=== PATIENT | female | born 1960 | race African-American/Black ===

== ENCOUNTER 2021-01-09 20:07 | Inpatient (IN) | payer SELFPAY ==
[~2021-01-09] VITALS: Ht 160 cm; Wt 53.0 kg
[2021-01-09] MEDS ORDERED: IV NORMAL SALINE 1000ML BAG 1,000 ML IV ONE (20:30)
--- NOTE | 2021-01-09 20:34 | PHYS DOC ---
General Adult HPI: HPI: 60-year-old thin -[place] female who takes no routine prescribed medications, presents the ED brought in by EMS with complaints of right hand pain after falling earlier today, unclear mechanism of injury. EMS reported vry difficult history, they mentioned "black pipe." Patient with repeat questioning in the ED regarding substance abuse, initially denying any drug use but later admitted to cocaine use, 3 weeks ago. She moved here from [place] in May. When asked about cardiac history states " they thought it was a heart attack, the enzymes were below 8 and back up to 11." Patient does not recall any cardiac catheterization through her groin or wrist. Has no routine primary care. History is limited and difficult due to cooperation versus substance abuse/intoxication. Review of Systems: Review of Systems: Constitutional: Denies fever or chills. [] Eyes: Denies change in visual acuity. [] HENT: Denies nasal congestion or sore throat. [] Respiratory: Denies cough or shortness of breath. [] Cardiovascular: Denies chest pain or edema. [] GI: Denies abdominal pain, nausea, vomiting, bloody stools or diarrhea. [] : Denies dysuria or vaginal bleeding Musculoskeletal: Denies back pain or CVA tenderness Integument: Denies rash or diaphoresis Neurologic: Denies headache, neck pain, focal weakness or sensory changes. [] Endocrine: Denies polyuria or polydipsia. [] Lymphatic: Denies swollen glands. [] Psychiatric: Denies depression or anxiety. [] Heart Score: C/O Chest Pain: No Risk Factors: Risk Factors: DM, Current or recent (<one month) smoker, HTN, HLP, family history of CAD, obesity. Risk Scores: Score 0 - 3: 2.5% MACE over next 6 weeks - Discharge Home Score 4 - 6: 20.3% MACE over next 6 weeks - Admit for Clinical Observation Score 7 - 10: 72.7% MACE over next 6 weeks - Early Invasive Strategies Current Medications: Current Medications Medications (Trade) Dose Ordered Sig/[place] Start Time Stop Time Status Last Admin Dose Admin Lorazepam (Ativan Inj) 1 mg 1X ONCE 01/09/21 20:30 01/09/21 20:31 UNV Sodium Chloride 1,000 ml @ 1,000 mls/hr 1X ONCE 01/09/21 20:30 01/09/21 21:29 UNV Physical Exam: PE: Constitutional: Very thin -[place] female HENT: Normocephalic, atraumatic, dentures in place, mucous membranes moist Eyes: EOMI, conjunctiva normal, no discharge, Neck: Normal range of motion, supple, no midline neck pain, no nuchal rigidity or meningismus Cardiovascular: S1/2 present, tachycardic rhythm Lungs & Thorax: Speaking in full sentences, bilateral equal chest rise, no tachypnea or increased work of breathing Abdomen: soft, no tenderness, Skin: Warm, dry, no erythema, no rash. [] Back: No tenderness, no CVA tenderness. [] Extremities: Points to right base of thumb and thenar/hypothenar eminences as site of pain - jumps prior to touching her hand, no obvious deformity, equal radial pulses, no cyanosis, no lower extremity edema, no pain at elbow or shoulder joints Neurologic: Alert to self/month/year, normal motor function, normal sensory function, no focal deficits noted. [] Psychologic: Affect normal, calm EKG: EK EKG sinus tachycardia 143 bpm, left axis deviation, normal intervals, J- point elevations in inferior lateral leads with hyperacute/peaked T waves, Q- wave lead III and aVF, no prior EKG comparison, no active chest pain back pain or discomfort-I discussed this EKG with Dr. Mcadams, cardiology upon ed pt arrival 0859 ekg with no new changes except HR 125 Radiology/Procedures: Radiology/Procedures: IMAGING REPORT Signed PATIENT: COLLEEN WYATT ACCOUNT: [id number] : 1960 LOCATION: ER AGE: 60 SEX: F EXAM STATUS: PRE ER ORD. PHYSICIAN: WILLIAM PINEDA DO REASON: fall? cocaine use, hand pain PROCEDURE: CT HEAD AND CERVICAL SPINE WO CT HEAD AND C-SPINE WO History: Reason: fall cocaine use, pain / Spl. Instructions: / History: Comparison: None. Technique: Noncontrast CT imaging was performed of the head and cervical spine. Coronal and sagittal reconstructions were performed. Exposure: One or more of the following individualized dose reduction techniques were utilized for this examination: 1. Automated exposure control 2. Adjustment of the mA and/or kV according to patient size 3. Use of iterative reconstruction technique. Findings: Head CT: No intracranial hemorrhage. No mass effect. No hydrocephalus. Extra- axial spaces are unremarkable. Imaged orbits are unremarkable. Imaged paranasal sinuses and mastoid air cells are clear. No acute calvarial fracture. Cervical spine CT: Normal vertebral body height and alignment. No fracture. Partially imaged left upper lobe consolidation with septal thickening. Impression: Head CT: 1. No acute intracranial abnormality. Cervical spine CT: 1. No acute fracture or subluxation of the cervical spine. 2. Left upper lobe consolidation with septal thickening, may represent infection or edema. Electronically signed by: Adan Bal DO (01/09/2021 9:04 PM) [facility] REPORT Signed PATIENT: COLLEEN WYATT ACCOUNT: [id number] : 1960 LOCATION: ER AGE: 60 SEX: F EXAM STATUS: REG ER ORD. PHYSICIAN: WILLIAM PINEDA DO REASON: pneumonia, sepsis, left lung mass vs pneumonia PROCEDURE: CT CHEST W/CONTRAST CT THORAX W History: Pneumonia. Sepsis. Technique: CT of the chest was performed with intravenous contrast. Coronal and sagittal reconstructions were performed. Exposure: One or more of the following individualized dose reduction techniques were utilized for this examination: 1. Automated exposure control 2. Adjustment of the mA and/or kV according to patient size 3. Use of iterative reconstruction technique. Comparison: None Findings: Chest: No pulmonary embolism. No aortic aneurysm or dissection. Enlarged mediastinal lymph nodes. Largest left paratracheal conglomerate lymph node measures 2.5 x 1.5 cm. Left hilar lymphadenopathy. Calcified left hilar lymph nodes, likely prior granulomatous disease. Severe left upper lobe consolidations with air bronchograms and septal thickening. Small lobulated left pleural effusion. Mild pulmonary emphysema. Minimal groundglass opacities within the right lower lobe. Upper abdomen: Small right hepatic lobe hypodensity, too small to further characterize. Bones: No pathologic osseous lesions. Impression: 1. Extensive left upper lobe consolidations, concerning for pneumonia. Recommend follow-up to ensure resolution. 2. Small left pleural effusion. 3. Mediastinal left hilar lymphadenopathy, likely reactive. Recommend attention on follow-up. Electronically signed by: Adan Bal DO (01/09/2021 10:27 PM) [facility] DICTATED and SIGNED BY: ADAN BAL DO DATE: 01/09/[id number] 0 DICTATED and SIGNED BY: ADAN BAL DO DATE: 01/09/[id number] 0 IMAGING REPORT Signed PATIENT: COLLEEN WYATT ACCOUNT: [id number] : 1960 LOCATION: ER AGE: 60 SEX: F EXAM STATUS: REG ER ORD. PHYSICIAN: WILLIAM PINEDA DO REASON: right thumb and hand pain s/p fall PROCEDURE: HAND RIGHT 3V XR HAND_RIGHT 3 VIEWS History: Reason: right thumb and hand pain s/p fall / Spl. Instructions: / History: Technique: 3 views right hand Comparison: None. Findings: No dislocation. No fracture. Mild first carpometacarpal triscaphe DJD. Mild distal radial ulnar DJD. Impression: 1. No acute osseous abnormality. Electronically signed by: Adan Bal DO (01/09/2021 9:18 PM) [facility] DICTATED and SIGNED BY: ADAN BAL DO DATE: 01/09/[id number] 0 IMAGING REPORT Signed PATIENT: COLLEEN WYATT ACCOUNT: [id number] : 1960 LOCATION: ER AGE: 60 SEX: F EXAM STATUS: REG ER ORD. PHYSICIAN: WILLIAM PINEDA DO REASON: right hand pain, abnormal ekg PROCEDURE: PORTABLE CHEST 1V XR CHEST 1V History: Reason: right hand pain, abnormal ekg / Spl. Instructions: / History: Comparison: None. Findings: Left upper lung and mid lung masslike consolidation. No pleural effusion. No pneumothorax. Prior granulomatous disease within the chest. Impression: 1. Left upper and midlung masslike consolidation, may represent pneumonia. Recommend follow-up to ensure resolution. Alternatively, CT can further evaluate. Electronically signed by: Adan Bal DO (01/09/2021 9:19 PM) [facility] DICTATED and SIGNED BY: ADAN BAL DO DATE: 01/09/21 [id number] Course & Med Decision Making: Course & Med Decision Making Pertinent Labs and Imaging studies reviewed. (See chart for details) COVID-19 CRITERIA: The patient was evaluated during the global COVID-19 pandemic, and that diagnosis was suspected/considered upon their initial presentation. Their evaluation, treatment and testing was consistent with current guidelines for patients who present with complaints or symptoms that may be related to COVID-19. Concern for sepsis with left sided pneumonia, Covid test pending. Patient also with abnormal EKG findings that have been reviewed by cardiology, cocaine is positive. Troponin negative. Will admit for further medical management. D/w Dr. Garduno who recommends pulmonology and infectious disease consultation. CT of the chest with contrast confirms multifocal pneumonia, 10% bands. Patient stable at time of admission and agrees with this plan. I have spoken with the patient and/or caregivers. I have explained the patient's condition, diagnosis and treatment plan based on the information available to me at this time. I have answered the patient's and/or caregivers questions and answered any concerns. The patient and/or caregivers have as good an understanding of the patient's diagnosis, condition and treatment plan as can be expected at this point. The patient has been stabilized within the capability of the emergency department. The patient will be transported for further care and management or will be moved to an observation or inpatient service. I have communicated with the staff or medical practitioner taking over this patient's care. Nadja Disclaimer: Nadja Disclaimer: This electronic medical record was generated, in whole or in part, using a voice recognition dictation system. Departure Departure Impression: Primary Impression: Sepsis Additional Impressions: CAP (community acquired pneumonia) Person under investigation for COVID-[address]-T wave electrocardiographic changes Hyponatremia Disposition: ADMITTED INPATIENT Admitting Physician: BERTIN (Dr. Garduno) Condition: GUARDED WILLIAM PINEDA DO Jan 09, 2021 20:34
[2021-01-09 20:43] LABS: BASO # 0.1 x10^3/uL (0.0-0.2); BASO % 0 % (0-3); EOS # 0.3 x10^3/uL (0.0-0.7); EOS % 1 % (0-3); HEMATOCRIT 32.5 % (36.0-47.0); HEMOGLOBIN 11.1 g/dL (12.0-15.5); LYMPH # 0.5 x10^3/uL (1.0-4.8); LYMPH % 2 % (24-48); MEAN CORPUSCULAR HEMOGLOBIN 29 pg (25-35); MEAN CORPUSCULAR HGB CONC 34 g/dL (31-37); MEAN CORPUSCULAR VOLUME 85 fL (79-100); MONO # 2.6 x10^3/uL (0.0-1.1); MONO % 11 % (0-9); NEUT # 20.8 x10^3/uL (1.8-7.7); NEUT % 86 % (31-73); PLATELET COUNT 503 x10^3/uL (140-400); RED BLOOD COUNT 3.81 x10^6/uL (3.50-5.40); RED CELL DISTRIBUTION WIDTH 13.2 % (11.5-14.5); WHITE BLOOD COUNT 24.3 x10^3/uL (4.0-11.0)
[2021-01-09 20:48] LABS: BARBITURATES NEG (NEG); BENZODIAZEPINES NEG (NEG); CANNABINOIDS POS (NEG); COCAINE POS (NEG); METHADONE NEG (NEG); OPIATES NEG (NEG); PHENCYCLIDINE NEG (NEG)
[2021-01-09 20:57] LABS: AMPHETAMINE/METHAMPHETAMINE NEG (NEG)
--- NOTE | 2021-01-09 21:07 | RAD ---
CT HEAD AND C-SPINE WO History: Reason: fall cocaine use, pain / Spl. Instructions: / History: Comparison: None. Technique: Noncontrast CT imaging was performed of the head and cervical spine. Coronal and sagittal reconstructions were performed. Exposure: One or more of the following individualized dose reduction techniques were utilized for thi s examination: 1. Automated exposure control 2. Adjustment of the mA and/or kV according to patient size 3. Use of iterative reconstruction technique. Findings: Head CT: No intracranial hemorrhage. No mass effect. No hydrocephalus. Extra-axial spaces are unrema rkable. Imaged orbits are unremarkable. Imaged paranasal sinuses and mastoid air cells are clear. No acute ca lvarial fracture. Cervical spine CT: Normal vertebral body height and alignment. No fracture. Partially imaged left upper lobe consolidation with septal thickening. Impression: Head CT: 1. No acute intracranial abnormality. Cervical spine CT: 1. No acute fracture or subluxation of the cervical spine. 2. Left upper lobe consolidation with septal thickening, may represent infection or edema. Electronically signed by: Adan Bal DO (01/09/2021 9:04 PM) [facility]
[2021-01-09 21:10] LABS: PROTHROMBIN TIME PATIENT 15.5 SEC (11.7-14.0)
--- NOTE | 2021-01-09 21:20 | RAD ---
XR HAND_RIGHT 3 VIEWS History: Reason: right thumb and hand pain s/p fall / Spl. Instructions: / History: Technique: 3 views right hand Comparison: None. Findings: No dislocation. No fracture. Mild first carpometacarpal triscaphe DJD. Mild distal radial ulnar DJD. Impression: 1. No acute osseous abnormality. Electronically signed by: Adan Bal DO (01/09/2021 9:18 PM) [facility]
--- NOTE | 2021-01-09 21:21 | RAD ---
XR CHEST 1V History: Reason: right hand pain, abnormal ekg / Spl. Instructions: / History: Comparison: None. Findings: Left upper lung and mid lung masslike consolidation. No pleural effusion. No pneumothorax. Prior gran ulomatous disease within the chest. Impression: 1. Left upper and midlung masslike consolidation, may represent pneumonia. Recommend follow-up to en sure resolution. Alternatively, CT can further evaluate. Electronically signed by: Adan Bal DO (01/09/2021 9:19 PM) [facility]
[2021-01-09] MEDS ORDERED: cefTRIAXone IV Push 1 GM VIAL. IVP ONE (21:30)
[2021-01-09] MEDS ORDERED: AZITHRMYCN 500MG IVPB FOR OMNI 250 ML IV ONE (21:30)
[2021-01-09 21:37] LABS: % BANDS 10 % (0-9); % LYMPHS 2 % (24-48); % MONOS 1 % (0-10); % SEGS 87 % (35-66); PLT ESTIMATE INCREASED (ADEQUATE)
[2021-01-09 21:46] LABS: CALCIUM 9.6 mg/dL (8.5-10.1); CREATININE 1.1 mg/dL (0.6-1.0); GFR 61.5; POTASSIUM 4.4 mmol/L (3.5-5.1)
[2021-01-09 21:51] LABS: ALBUMIN 1.3 g/dL (3.4-5.0); ALBUMIN/GLOBULIN RATIO 0.2 (1.0-1.7); MAGNESIUM 2.1 mg/dL (1.8-2.4); TOTAL BILIRUBIN 2.1 mg/dL (0.2-1.0); TOTAL PROTEIN 7.6 g/dL (6.4-8.2)
[2021-01-09] MEDS ORDERED: IOHEXOL 300 MG/ML 100ML VIAL. IV ONE (22:00)
[2021-01-09] MEDS ORDERED: CONTRAST GIVEN. MC PRN (22:00)
--- NOTE | 2021-01-09 22:29 | RAD ---
CT THORAX W History: Pneumonia. Sepsis. Technique: CT of the chest was performed with intravenous contrast. Coronal and sagittal reconstructi ons were performed. Exposure: One or more of the following individualized dose reduction techniques were utilized for thi s examination: 1. Automated exposure control 2. Adjustment of the mA and/or kV according to patient size 3. Use of iterative reconstruction technique. Comparison: None Findings: Chest: No pulmonary embolism. No aortic aneurysm or dissection. Enlarged mediastinal lymph nodes. Lar gest left paratracheal conglomerate lymph node measures 2.5 x 1.5 cm. Left hilar lymphadenopathy. Xavier cified left hilar lymph nodes, likely prior granulomatous disease. Severe left upper lobe consolidations with air bronchograms and septal thickening. Small lobulated le ft pleural effusion. Mild pulmonary emphysema. Minimal groundglass opacities within the right lower l obe. Upper abdomen: Small right hepatic lobe hypodensity, too small to further characterize. Bones: No pathologic osseous lesions. Impression: 1. Extensive left upper lobe consolidations, concerning for pneumonia. Recommend follow-up to ensure resolution. 2. Small left pleural effusion. 3. Mediastinal left hilar lymphadenopathy, likely reactive. Recommend attention on follow-up. Electronically signed by: Adan Bal DO (01/09/2021 10:27 PM) [facility]
[2021-01-09 23:28] LABS: CLARITY,URINE CLOUDY; COLOR,URINE ORANGE
[2021-01-09 23:50] LABS: AMORPHOUS SEDIMENT,UR PRESENT /HPF; BACTERIA,URINE FEW /HPF (0-FEW); GRANULAR CASTS,URINE FEW /HPF; HYALINE CASTS, URINE MODERATE /HPF
[2021-01-09 23:51] LABS: RBC,URINE OCC /HPF (0-2)
[2021-01-10] VITALS (7 sets, daily range): BP systolic 85–129; BP diastolic 52–69
[2021-01-10] MEDS ORDERED: IV NORMAL SALINE 1000ML BAG 1,000 ML IV ONE (01:00)
[2021-01-10] MEDS: IV NORMAL SALINE 1000ML BAG 1,000 ML IV SCH ×4 (01:34→22:15)
--- NOTE | 2021-01-10 06:18 | EKG ---
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
--- NOTE | 2021-01-10 06:59 | PDOC1 ---
History and Physical Date of Admission Date of Admission DATE: 01/10/21 TIME: 06:57 Identification/Chief Complaint Chief Complaint Right hand pain, confusion Source Source: Chart review, Patient History of Present Illness History of Present Illness Ms Mccrary is a 60 yo F who takes no routine prescribed medications, presents the ED brought in by EMS with complaints of right hand pain after falling during the day on 01/09/2021. She was very confused and unclear about history but does note moving here from [place] at the end of 2019 and used cocaine "a few days ago". She notes weight loss, fever and chills and right hand pain and stiffness and is aware she is confused. Cannot give much more history, but notes she thinks she had a heart attack back in [place], but then says she didn't. She is a little short of breath and has a slight cough, notes she may have vomiting recently but thinks it may have been due to pain. WBC 24.3, Hb 11.1, platelets 503 INR 1.2 NA 125, K4.4, BUN 45, CR 1.1, glucose 104 bilirubin 2.1, AST 29, ALT 50, alk phos 1.3, albumin 1.3, NT proBNP 359 troponin 0 lactic acid 3 initially down to 1.5 UDS positive for cocaine and cannabinoids 0809 EKG sinus tachycardia 143 bpm, left axis deviation, normal intervals, J- point elevations in inferior lateral leads with hyperacute/peaked T waves, Q- wave lead III and aVF Chest radiograph with left upper lobe opacity Right hand radiograph without fracture CT head with no acute abnormality CT of the chest with contrast confirms multifocal left upper lobe pneumonia with hilar fullness and mediastinal lymphadenopathy. BP 90/50 after empiric antibiotics and fluids for sepsis, given rocephin and azithromycin. Admitted to ICU for further care. Past Medical History Cardiovascular: No pertinent hx Pulmonary: Bronchitis Psych: Addictions (Cocaine) Past Surgical History Past Surgical History: No pertinent history Family History Family History reviewed Family History: Family History Unknown Social History Smoke: Quit (June 2020) ALCOHOL: none Drugs: Cocaine, Marijuana Current Problem List Problem List Problems Medical Problems: (1) CAP (community acquired pneumonia) Status: Acute (2) Cocaine use Status: Acute (3) Hyponatremia Status: Acute (4) Nonspecific ST-T wave electrocardiographic changes Status: Acute (5) Person under investigation for COVID-19 Status: Acute (6) Sepsis Status: Acute Current Medications Current Medications Current Medications Sodium Chloride 1,000 ml @ 1,000 mls/hr 1X ONCE IV Last administered on 01/09/21at 21:31; Start 01/09/21 at 20:30; Stop 01/09/21 at 21:29; Status DC Lorazepam (Ativan Inj) 1 mg 1X ONCE IVP Last administered on 01/09/21at 21:31; Start 01/09/21 at 20:30; Stop 01/09/21 at 20:55; Status DC Ceftriaxone Sodium (Rocephin) 1 gm 1X ONCE IVP Last administered on 01/09/21at 21:32; Start 01/09/21 at 21:30; Stop 01/09/21 at 21:31; Status DC Azithromycin 250 ml @ 250 mls/hr 1X ONCE IV Last administered on 01/09/21at 21:32; Start 01/09/21 at 21:30; Stop 01/09/21 at 22:29; Status DC Iohexol (Omnipaque 300 Mg/ml) 75 ml 1X ONCE IV Last administered on 01/09/21at 22:05; Start 01/09/21 at 22:00; Stop 01/09/21 at 22:01; Status DC Info (CONTRAST GIVEN -- Rx MONITORING) 1 each PRN DAILY PRN MC SEE COMMENTS; Start 01/09/21 at 22:00; Stop 01/11/21 at 21:59 Sodium Chloride 1,000 ml @ 150 mls/hr Q6H40M IV Last administered on 01/10/21at 01:34; Start 01/10/21 at 01:00 Sodium Chloride 1,000 ml @ 1,000 mls/hr 1X ONCE IV Last administered on 01/10/21at 01:07; Start 01/10/21 at 01:00; Stop 01/10/21 at 01:59; Status DC Active Scripts Active Reported No Known Medications Prior To Admisstion (Info) Each 1 Each MC PRN PRN Allergies Allergies: Coded Allergies: No Known Drug Allergies (Unverified , 01/09/21) ROS General: YES: Fatigue, Malaise; No: Chills, Night Sweats, Appetite, Other PSYCHOLOGICAL ROS: YES: Anxiety, Disorientation; No: Behavioral Disorder, Concentration difficultie, Decreased libido, Depression, Hallucinations, Hostility, Irritablity, Memory difficulties, Mood Swings, Obsessive thoughts, Physical abuse, Sexual abuse, Sleep disturbances, Suicidal ideation, Other Eyes: No Blurry vision, No Decreased vision, No Double vision, No Dry eyes, No Excessive tearing, No Eye Pain, No Itchy Eyes, No Loss of vision, No Photophobia, No Scotomata, No Uses contacts, No Uses glasses, No Other HEENT: No: Heacaches, Visual Changes, Hearing change, Nasal congestion, Nasal discharge, Oral lesions, Sinus pain, Sore Throat, Epistaxis, Sneezing, Snoring, Tinnitus, Vertigo, Vocal changes, Other ALLERGY AND IMMUNOLOGY: No: Hives, Insect Bite Sensitivity, Itchy/Watery Eyes, Nasal Congestion, Post Nasal Drip, Seasonal Allergies, Other Hematological and Lymphatic: No: Bleeding Problems, Blood Clots, Blood Transfusions, Brusing, Night Sweats, Pallor, Swollen Lymph Nodes, Other ENDOCRINE: No: Breast Changes, Galactorrhea, Hair Pattern Changes, Hot Flashes, Malaise/lethargy, Mood Swings, Palpitations, Polydipsia/polyuria, Skin Changes, Temperature Intolerance, Unexpected Weight Changes, Other Breast: No New/Changing Breast Lumps, No Nipple changes, No Nipple discharge, No Other Respiratory: YES: Cough, Shortness of breath; No: Hemoptysis, Orthopnea, Pleuritic Pain, SOB with excertion, Sputum Changes, Stridor, Tachypnea, Wheezing, Other Cardiovascular: No Chest Pain, No Palpitations, No Orthopnea, No Paroxysmal Noc. Dyspnea, No Edema, No Lt Headedness, No Other Gastrointestinal: No Nausea, No Vomiting, No Abdominal Pain, No Diarrhea, No Constipation, No Melena, No Hematochezia, No Other Genitourinary: No Dysuria, No Frequency, No Incontinence, No Hematuria, No Retention, No Discharge, No Urgency, No Pain, No Flank Pain, No Other, No , No , No , No , No , No , No Musculoskeletal: Yes Gait Disturbance, Yes Joint Pain, Yes Joint Stiffness; No Joint Swelling, No Muscle Pain, No Muscular Weakness, No Pain In:, No Swelling In:, No Other Neurological: No Behavorial Changes, No Bowel/Bladder ControlChng, No Confusion, No Dizziness, No Gait Disturbance, No Headaches, No Impaired Coord/balance, No Memory Loss, No Numbness/Tingling, No Seizures, No Speech Problems, No Tremors, No Visual Changes, No Weakness, No Other Skin: No Dry Skin, No Eczema, No Hair Changes, No Lumps, No Mole Changes, No Mottling, No Nail Changes, No Pruritus, No Rash, No Skin Lesion Changes, No Other, No Acne Physical Exam Physical Exam Thin, cachectic General: Alert, Cooperative, moderate distress HEENT: Atraumatic, PERRLA, EOMI, Mucous membr. moist/pink Lungs: Other (left sided rhonchi) Heart: S1S2, RRR, no thrills, no rubs, no gallops, no murmurs Abdomen: Normal bowel sounds, Soft, No tenderness, No hepatosplenomegaly, No masses Rectal Exam: not examined Extremities: No clubbing, No cyanosis, No edema, Normal pulses, No tenderness/swelling Skin: No rashes, No breakdown, No significant lesion Neuro: Normal speech, Strength at 5/5 X4 ext, Normal tone, Sensation intact, Cranial nerves 3-12 NL, Reflexes 2+ Vitals Vitals Vital Signs Date Time Temp Pulse Resp B/P (MAP) Pulse Ox O2 Delivery O2 Flow Rate FiO2 01/10/21 03:00 98.2 112 18 107/62 (77) 94 Room Air 98.2 Labs Labs Laboratory Tests Test 01/09/21 20:25 01/09/21 20:54 01/09/21 21:21 01/09/21 23:32 White Blood Count 24.3 x10^3/uL (4.0-11.0) Red Blood Count 3.81 x10^6/uL (3.50-5.40) Hemoglobin 11.1 g/dL (12.0-15.5) Hematocrit 32.5 % (36.0-47.0) Mean Corpuscular Volume 85 fL (79-100) Mean Corpuscular Hemoglobin 29 pg (25-35) Mean Corpuscular Hemoglobin Concent 34 g/dL (31-37) Red Cell Distribution Width 13.2 % (11.5-14.5) Platelet Count 503 x10^3/uL (140-400) Neutrophils (%) (Auto) 86 % (31-73) Lymphocytes (%) (Auto) 2 % (24-48) Monocytes (%) (Auto) 11 % (0-9) Eosinophils (%) (Auto) 1 % (0-3) Basophils (%) (Auto) 0 % (0-3) Neutrophils # (Auto) 20.8 x10^3/uL (1.8-7.7) Lymphocytes # (Auto) 0.5 x10^3/uL (1.0-4.8) Monocytes # (Auto) 2.6 x10^3/uL (0.0-1.1) Eosinophils # (Auto) 0.3 x10^3/uL (0.0-0.7) Basophils # (Auto) 0.1 x10^3/uL (0.0-0.2) Segmented Neutrophils % 87 % (35-66) Band Neutrophils % 10 % (0-9) Lymphocytes % 2 % (24-48) Monocytes % 1 % (0-10) Platelet Estimate Increased (ADEQUATE) Large Platelets Present Urine Collection Type U cath Urine Color [place] Urine Clarity Cloudy Urine pH (<5.0-8.0) Urine Specific [place] 1.020 (1.000-1.030) Urine Protein mg/dL (NEG-TRACE) Urine Glucose (UA) mg/dL (NEG) Urine Ketones (Stick) mg/dL (NEG) Urine Blood (NEG) Urine Nitrite (NEG) Urine Bilirubin (NEG) Urine Urobilinogen Dipstick mg/dL (0.2 mg/dL) Urine Leukocyte Esterase (NEG) Urine RBC Occ /HPF (0-2) Urine WBC 5-10 /HPF (0-4) Urine Squamous Epithelial Cells Mod /LPF Urine Amorphous Sediment Present /HPF Urine Bacteria Few /HPF (0-FEW) Urine Hyaline Casts Moderate /HPF Urine Granular Casts Few /HPF Urine Mucus Marked /LPF Lactic Acid Level 3.0 mmol/L (0.4-2.0) Troponin I Quantitative < 0.017 ng/mL (0.000-0.055) < 0.017 ng/mL (0.000-0.055) Urine Opiates Screen Neg (NEG) Urine Methadone Screen Neg (NEG) Urine Barbiturates Neg (NEG) Urine Phencyclidine Screen Neg (NEG) Urine Amphetamine/Methamphetamine Neg (NEG) Urine Benzodiazepines Screen Neg (NEG) Urine Cocaine Screen Pos (NEG) Urine Cannabinoids Screen Pos (NEG) Urine Ethyl Alcohol Neg (NEG) Prothrombin Time 15.5 SEC (11.7-14.0) Prothromb Time International Ratio 1.2 (0.8-1.1) Activated Partial Thromboplast Time 28 SEC (24-38) Sodium Level 125 mmol/L (136-145) Potassium Level 4.4 mmol/L (3.5-5.1) Chloride Level 94 mmol/L (98-107) Carbon Dioxide Level 19 mmol/L (21-32) Anion Gap 12 (6-14) Blood Urea Nitrogen 45 mg/dL (7-20) Creatinine 1.1 mg/dL (0.6-1.0) Estimated GFR (Cockcroft-Gault) 61.5 BUN/Creatinine Ratio 41 (6-20) Glucose Level 104 mg/dL (70-99) Calcium Level 9.6 mg/dL (8.5-10.1) Magnesium Level 2.1 mg/dL (1.8-2.4) Total Bilirubin 2.1 mg/dL (0.2-1.0) Aspartate Amino Transf (AST/SGOT) 189 U/L (15-37) Alanine Aminotransferase (ALT/SGPT) 50 U/L (14-59) Alkaline Phosphatase 143 U/L (46-116) AV-Gcp-V-Type Natriuretic Peptide 359 pg/mL (0-124) Total Protein 7.6 g/dL (6.4-8.2) Albumin 1.3 g/dL (3.4-5.0) Albumin/Globulin Ratio 0.2 (1.0-1.7) Lipase 139 U/L (73-393) Test 01/09/21 23:58 01/10/21 02:30 Lactic Acid Level 1.5 mmol/L (0.4-2.0) Troponin I Quantitative < 0.017 ng/mL (0.000-0.055) Laboratory Tests Test 01/09/21 20:25 01/09/21 20:54 01/09/21 21:21 01/09/21 23:32 White Blood Count 24.3 x10^3/uL (4.0-11.0) Red Blood Count 3.81 x10^6/uL (3.50-5.40) Hemoglobin 11.1 g/dL (12.0-15.5) Hematocrit 32.5 % (36.0-47.0) Mean Corpuscular Volume 85 fL (79-100) Mean Corpuscular Hemoglobin 29 pg (25-35) Mean Corpuscular Hemoglobin Concent 34 g/dL (31-37) Red Cell Distribution Width 13.2 % (11.5-14.5) Platelet Count 503 x10^3/uL (140-400) Neutrophils (%) (Auto) 86 % (31-73) Lymphocytes (%) (Auto) 2 % (24-48) Monocytes (%) (Auto) 11 % (0-9) Eosinophils (%) (Auto) 1 % (0-3) Basophils (%) (Auto) 0 % (0-3) Neutrophils # (Auto) 20.8 x10^3/uL (1.8-7.7) Lymphocytes # (Auto) 0.5 x10^3/uL (1.0-4.8) Monocytes # (Auto) 2.6 x10^3/uL (0.0-1.1) Eosinophils # (Auto) 0.3 x10^3/uL (0.0-0.7) Basophils # (Auto) 0.1 x10^3/uL (0.0-0.2) Segmented Neutrophils % 87 % (35-66) Band Neutrophils % 10 % (0-9) Lymphocytes % 2 % (24-48) Monocytes % 1 % (0-10) Platelet Estimate Increased (ADEQUATE) Large Platelets Present Urine Collection Type U cath Urine Color [place] Urine Clarity Cloudy Urine pH (<5.0-8.0) Urine Specific [place] 1.020 (1.000-1.030) Urine Protein mg/dL (NEG-TRACE) Urine Glucose (UA) mg/dL (NEG) Urine Ketones (Stick) mg/dL (NEG) Urine Blood (NEG) Urine Nitrite (NEG) Urine Bilirubin (NEG) Urine Urobilinogen Dipstick mg/dL (0.2 mg/dL) Urine Leukocyte Esterase (NEG) Urine RBC Occ /HPF (0-2) Urine WBC 5-10 /HPF (0-4) Urine Squamous Epithelial Cells Mod /LPF Urine Amorphous Sediment Present /HPF Urine Bacteria Few /HPF (0-FEW) Urine Hyaline Casts Moderate /HPF Urine Granular Casts Few /HPF Urine Mucus Marked /LPF Lactic Acid Level 3.0 mmol/L (0.4-2.0) Troponin I Quantitative < 0.017 ng/mL (0.000-0.055) < 0.017 ng/mL (0.000-0.055) Urine Opiates Screen Neg (NEG) Urine Methadone Screen Neg (NEG) Urine Barbiturates Neg (NEG) Urine Phencyclidine Screen Neg (NEG) Urine Amphetamine/Methamphetamine Neg (NEG) Urine Benzodiazepines Screen Neg (NEG) Urine Cocaine Screen Pos (NEG) Urine Cannabinoids Screen Pos (NEG) Urine Ethyl Alcohol Neg (NEG) Prothrombin Time 15.5 SEC (11.7-14.0) Prothromb Time International Ratio 1.2 (0.8-1.1) Activated Partial Thromboplast Time 28 SEC (24-38) Sodium Level 125 mmol/L (136-145) Potassium Level 4.4 mmol/L (3.5-5.1) Chloride Level 94 mmol/L (98-107) Carbon Dioxide Level 19 mmol/L (21-32) Anion Gap 12 (6-14) Blood Urea Nitrogen 45 mg/dL (7-20) Creatinine 1.1 mg/dL (0.6-1.0) Estimated GFR (Cockcroft-Gault) 61.5 BUN/Creatinine Ratio 41 (6-20) Glucose Level 104 mg/dL (70-99) Calcium Level 9.6 mg/dL (8.5-10.1) Magnesium Level 2.1 mg/dL (1.8-2.4) Total Bilirubin 2.1 mg/dL (0.2-1.0) Aspartate Amino Transf (AST/SGOT) 189 U/L (15-37) Alanine Aminotransferase (ALT/SGPT) 50 U/L (14-59) Alkaline Phosphatase 143 U/L (46-116) SS-[place]-G-Type Natriuretic Peptide 359 pg/mL (0-124) Total Protein 7.6 g/dL (6.4-8.2) Albumin 1.3 g/dL (3.4-5.0) Albumin/Globulin Ratio 0.2 (1.0-1.7) Lipase 139 U/L (73-393) Test 01/09/21 23:58 01/10/21 02:30 Lactic Acid Level 1.5 mmol/L (0.4-2.0) Troponin I Quantitative < 0.017 ng/mL (0.000-0.055) Images Images CT HEAD AND C-SPINE WO History: Reason: fall cocaine use, pain / Spl. Instructions: / History: Comparison: None. Technique: Noncontrast CT imaging was performed of the head and cervical spine. Coronal and sagittal reconstructions were performed. Exposure: One or more of the following individualized dose reduction techniques were utilized for this examination: 1. Automated exposure control 2. Adjustment of the mA and/or kV according to patient size 3. Use of iterative reconstruction technique. Findings: Head CT: No intracranial hemorrhage. No mass effect. No hydrocephalus. Extra- axial spaces are unremarkable. Imaged orbits are unremarkable. Imaged paranasal sinuses and mastoid air cells are clear. No acute calvarial fracture. Cervical spine CT: Normal vertebral body height and alignment. No fracture. Partially imaged left upper lobe consolidation with septal thickening. Impression: Head CT: 1. No acute intracranial abnormality. Cervical spine CT: 1. No acute fracture or subluxation of the cervical spine. 2. Left upper lobe consolidation with septal thickening, may represent infection or edema. CT THORAX W Findings: Chest: No pulmonary embolism. No aortic aneurysm or dissection. Enlarged mediastinal lymph nodes. Largest left paratracheal conglomerate lymph node measures 2.5 x 1.5 cm. Left hilar lymphadenopathy. Calcified left hilar lymph nodes, likely prior granulomatous disease. Severe left upper lobe consolidations with air bronchograms and septal thickening. Small lobulated left pleural effusion. Mild pulmonary emphysema. Minimal groundglass opacities within the right lower lobe. Upper abdomen: Small right hepatic lobe hypodensity, too small to further hal racterize. Bones: No pathologic osseous lesions. Impression: 1. Extensive left upper lobe consolidations, concerning for pneumonia. Recommend follow-up to ensure resolution. 2. Small left pleural effusion. 3. Mediastinal left hilar lymphadenopathy, likely reactive. Recommend attention on follow-up. XR HAND_RIGHT 3 VIEWS History: Reason: right thumb and hand pain s/p fall / Spl. Instructions: / History: Technique: 3 views right hand Comparison: None. Findings: No dislocation. No fracture. Mild first carpometacarpal triscaphe DJD. Mild distal radial ulnar DJD. Impression: 1. No acute osseous abnormality. XR CHEST 1V History: Reason: right hand pain, abnormal ekg / Spl. Instructions: / History: Comparison: None. Findings: Left upper lung and mid lung masslike consolidation. No pleural effusion. No pneumothorax. Prior granulomatous disease within the chest. Impression: 1. Left upper and midlung masslike consolidation, may represent pneumonia. Recommend follow-up to ensure resolution. Alternatively, CT can further evaluate. VTE Prophylaxis Ordered VTE Prophylaxis Devices: No VTE Pharmacological Prophylaxi: Yes Assessment/Plan Assessment/Plan A/P: Acute encephalopathy - metabolic from sepsis, hyponatremia and toxic from cocaine Sepsis - with gram positive bacteremia and JAY pneumonia, likely gram positive given bacteremia but just as likely gram negative given possible aspiration and cocaine abuse CAP (community acquired pneumonia) - rocephin and azithromycin initial coverage. COVID [address] of the chest with contrast confirms multifocal pneumonia in JAY. Pulm consulted for bronchoscopy consideration Gram-positive bacteremia, 4/4 bottles present on admission - ID consulted, daptomycin ordered Right hand pain - wrist stiffness, possibly septic arthritis. Cocaine use - counseled on cessation Nonspecific ST-T wave electrocardiographic changes - consulted cardiology, will trend troponins. Given gram positive bacteremia 4/4 bottles positive will ask for echocardiogram to evaluated for possible valve vegetations Hyponatremia - likely hypovolemic, will trend, hydrate Weight loss - possibly related to cocaine, but left lung consolidation could be mass. 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
--- NOTE | 2021-01-10 09:02 | PDOC ---
PULMONARY PROGRESS NOTES DATE: 01/10/21 TIME: 09:02 Vitals Vital Signs Date Time Temp Pulse Resp B/P (MAP) Pulse Ox O2 Delivery O2 Flow Rate FiO2 01/10/21 03:00 98.2 112 18 107/62 (77) 94 Room Air 98.2 Labs Laboratory Tests Test 01/09/21 20:25 01/09/21 20:54 01/09/21 21:21 01/09/21 23:32 White Blood Count 24.3 x10^3/uL (4.0-11.0) Red Blood Count 3.81 x10^6/uL (3.50-5.40) Hemoglobin 11.1 g/dL (12.0-15.5) Hematocrit 32.5 % (36.0-47.0) Mean Corpuscular Volume 85 fL (79-100) Mean Corpuscular Hemoglobin 29 pg (25-35) Mean Corpuscular Hemoglobin Concent 34 g/dL (31-37) Red Cell Distribution Width 13.2 % (11.5-14.5) Platelet Count 503 x10^3/uL (140-400) Neutrophils (%) (Auto) 86 % (31-73) Lymphocytes (%) (Auto) 2 % (24-48) Monocytes (%) (Auto) 11 % (0-9) Eosinophils (%) (Auto) 1 % (0-3) Basophils (%) (Auto) 0 % (0-3) Neutrophils # (Auto) 20.8 x10^3/uL (1.8-7.7) Lymphocytes # (Auto) 0.5 x10^3/uL (1.0-4.8) Monocytes # (Auto) 2.6 x10^3/uL (0.0-1.1) Eosinophils # (Auto) 0.3 x10^3/uL (0.0-0.7) Basophils # (Auto) 0.1 x10^3/uL (0.0-0.2) Segmented Neutrophils % 87 % (35-66) Band Neutrophils % 10 % (0-9) Lymphocytes % 2 % (24-48) Monocytes % 1 % (0-10) Platelet Estimate Increased (ADEQUATE) Large Platelets Present Urine Collection Type U cath Urine Color [place] Urine Clarity Cloudy Urine pH (<5.0-8.0) Urine Specific [place] 1.020 (1.000-1.030) Urine Protein mg/dL (NEG-TRACE) Urine Glucose (UA) mg/dL (NEG) Urine Ketones (Stick) mg/dL (NEG) Urine Blood (NEG) Urine Nitrite (NEG) Urine Bilirubin (NEG) Urine Urobilinogen Dipstick mg/dL (0.2 mg/dL) Urine Leukocyte Esterase (NEG) Urine RBC Occ /HPF (0-2) Urine WBC 5-10 /HPF (0-4) Urine Squamous Epithelial Cells Mod /LPF Urine Amorphous Sediment Present /HPF Urine Bacteria Few /HPF (0-FEW) Urine Hyaline Casts Moderate /HPF Urine Granular Casts Few /HPF Urine Mucus Marked /LPF Lactic Acid Level 3.0 mmol/L (0.4-2.0) Troponin I Quantitative < 0.017 ng/mL (0.000-0.055) < 0.017 ng/mL (0.000-0.055) Urine Opiates Screen Neg (NEG) Urine Methadone Screen Neg (NEG) Urine Barbiturates Neg (NEG) Urine Phencyclidine Screen Neg (NEG) Urine Amphetamine/Methamphetamine Neg (NEG) Urine Benzodiazepines Screen Neg (NEG) Urine Cocaine Screen Pos (NEG) Urine Cannabinoids Screen Pos (NEG) Urine Ethyl Alcohol Neg (NEG) Prothrombin Time 15.5 SEC (11.7-14.0) Prothromb Time International Ratio 1.2 (0.8-1.1) Activated Partial Thromboplast Time 28 SEC (24-38) Sodium Level 125 mmol/L (136-145) Potassium Level 4.4 mmol/L (3.5-5.1) Chloride Level 94 mmol/L (98-107) Carbon Dioxide Level 19 mmol/L (21-32) Anion Gap 12 (6-14) Blood Urea Nitrogen 45 mg/dL (7-20) Creatinine 1.1 mg/dL (0.6-1.0) Estimated GFR (Cockcroft-Gault) 61.5 BUN/Creatinine Ratio 41 (6-20) Glucose Level 104 mg/dL (70-99) Calcium Level 9.6 mg/dL (8.5-10.1) Magnesium Level 2.1 mg/dL (1.8-2.4) Total Bilirubin 2.1 mg/dL (0.2-1.0) Aspartate Amino Transf (AST/SGOT) 189 U/L (15-37) Alanine Aminotransferase (ALT/SGPT) 50 U/L (14-59) Alkaline Phosphatase 143 U/L (46-116) GJ-Fen-K-Type Natriuretic Peptide 359 pg/mL (0-124) Total Protein 7.6 g/dL (6.4-8.2) Albumin 1.3 g/dL (3.4-5.0) Albumin/Globulin Ratio 0.2 (1.0-1.7) Lipase 139 U/L (73-393) Test 01/09/21 23:58 01/10/21 02:30 Lactic Acid Level 1.5 mmol/L (0.4-2.0) Troponin I Quantitative < 0.017 ng/mL (0.000-0.055) Laboratory Tests Test 01/09/21 20:25 01/09/21 20:54 01/09/21 21:21 01/09/21 23:32 White Blood Count 24.3 x10^3/uL (4.0-11.0) Red Blood Count 3.81 x10^6/uL (3.50-5.40) Hemoglobin 11.1 g/dL (12.0-15.5) Hematocrit 32.5 % (36.0-47.0) Mean Corpuscular Volume 85 fL (79-100) Mean Corpuscular Hemoglobin 29 pg (25-35) Mean Corpuscular Hemoglobin Concent 34 g/dL (31-37) Red Cell Distribution Width 13.2 % (11.5-14.5) Platelet Count 503 x10^3/uL (140-400) Neutrophils (%) (Auto) 86 % (31-73) Lymphocytes (%) (Auto) 2 % (24-48) Monocytes (%) (Auto) 11 % (0-9) Eosinophils (%) (Auto) 1 % (0-3) Basophils (%) (Auto) 0 % (0-3) Neutrophils # (Auto) 20.8 x10^3/uL (1.8-7.7) Lymphocytes # (Auto) 0.5 x10^3/uL (1.0-4.8) Monocytes # (Auto) 2.6 x10^3/uL (0.0-1.1) Eosinophils # (Auto) 0.3 x10^3/uL (0.0-0.7) Basophils # (Auto) 0.1 x10^3/uL (0.0-0.2) Segmented Neutrophils % 87 % (35-66) Band Neutrophils % 10 % (0-9) Lymphocytes % 2 % (24-48) Monocytes % 1 % (0-10) Platelet Estimate Increased (ADEQUATE) Large Platelets Present Urine Collection Type U cath Urine Color [place] Urine Clarity Cloudy Urine pH (<5.0-8.0) Urine Specific [place] 1.020 (1.000-1.030) Urine Protein mg/dL (NEG-TRACE) Urine Glucose (UA) mg/dL (NEG) Urine Ketones (Stick) mg/dL (NEG) Urine Blood (NEG) Urine Nitrite (NEG) Urine Bilirubin (NEG) Urine Urobilinogen Dipstick mg/dL (0.2 mg/dL) Urine Leukocyte Esterase (NEG) Urine RBC Occ /HPF (0-2) Urine WBC 5-10 /HPF (0-4) Urine Squamous Epithelial Cells Mod /LPF Urine Amorphous Sediment Present /HPF Urine Bacteria Few /HPF (0-FEW) Urine Hyaline Casts Moderate /HPF Urine Granular Casts Few /HPF Urine Mucus Marked /LPF Lactic Acid Level 3.0 mmol/L (0.4-2.0) Troponin I Quantitative < 0.017 ng/mL (0.000-0.055) < 0.017 ng/mL (0.000-0.055) Urine Opiates Screen Neg (NEG) Urine Methadone Screen Neg (NEG) Urine Barbiturates Neg (NEG) Urine Phencyclidine Screen Neg (NEG) Urine Amphetamine/Methamphetamine Neg (NEG) Urine Benzodiazepines Screen Neg (NEG) Urine Cocaine Screen Pos (NEG) Urine Cannabinoids Screen Pos (NEG) Urine Ethyl Alcohol Neg (NEG) Prothrombin Time 15.5 SEC (11.7-14.0) Prothromb Time International Ratio 1.2 (0.8-1.1) Activated Partial Thromboplast Time 28 SEC (24-38) Sodium Level 125 mmol/L (136-145) Potassium Level 4.4 mmol/L (3.5-5.1) Chloride Level 94 mmol/L (98-107) Carbon Dioxide Level 19 mmol/L (21-32) Anion Gap 12 (6-14) Blood Urea Nitrogen 45 mg/dL (7-20) Creatinine 1.1 mg/dL (0.6-1.0) Estimated GFR (Cockcroft-Gault) 61.5 BUN/Creatinine Ratio 41 (6-20) Glucose Level 104 mg/dL (70-99) Calcium Level 9.6 mg/dL (8.5-10.1) Magnesium Level 2.1 mg/dL (1.8-2.4) Total Bilirubin 2.1 mg/dL (0.2-1.0) Aspartate Amino Transf (AST/SGOT) 189 U/L (15-37) Alanine Aminotransferase (ALT/SGPT) 50 U/L (14-59) Alkaline Phosphatase 143 U/L (46-116) IP-Itv-Y-Type Natriuretic Peptide 359 pg/mL (0-124) Total Protein 7.6 g/dL (6.4-8.2) Albumin 1.3 g/dL (3.4-5.0) Albumin/Globulin Ratio 0.2 (1.0-1.7) Lipase 139 U/L (73-393) Test 01/09/21 23:58 01/10/21 02:30 Lactic Acid Level 1.5 mmol/L (0.4-2.0) Troponin I Quantitative < 0.017 ng/mL (0.000-0.055) Medications Active Scripts Medications Dose Route/Sig Max Daily Dose Days Date Category No Known Medications Prior To Admisstion (Info) Each 1 Each MC PRN PRN 01/10/21 Reported Impression . Full consult to be dictated Left upper lobe suspect postobstructive pneumonia, difficult to tell if lung mass versus all consolidation Continue antibiotics We will proceed with diagnostic bronchoscopy in the GUANACO Marte MD Jan 10, 2021 09:02
--- NOTE | 2021-01-10 09:41 | PDOC ---
Infectious Disease Note Vital Signs: Vital Signs Vital Signs Date Time Temp Pulse Resp B/P (MAP) Pulse Ox O2 Delivery O2 Flow Rate FiO2 01/10/21 03:00 98.2 112 18 107/62 (77) 94 Room Air 98.2 Medications: Inpatient Meds: Medications reviewed. Labs: Lab Laboratory Tests Test 01/09/21 20:25 01/09/21 20:54 01/09/21 21:21 01/09/21 23:32 White Blood Count 24.3 x10^3/uL (4.0-11.0) Red Blood Count 3.81 x10^6/uL (3.50-5.40) Hemoglobin 11.1 g/dL (12.0-15.5) Hematocrit 32.5 % (36.0-47.0) Mean Corpuscular Volume 85 fL (79-100) Mean Corpuscular Hemoglobin 29 pg (25-35) Mean Corpuscular Hemoglobin Concent 34 g/dL (31-37) Red Cell Distribution Width 13.2 % (11.5-14.5) Platelet Count 503 x10^3/uL (140-400) Neutrophils (%) (Auto) 86 % (31-73) Lymphocytes (%) (Auto) 2 % (24-48) Monocytes (%) (Auto) 11 % (0-9) Eosinophils (%) (Auto) 1 % (0-3) Basophils (%) (Auto) 0 % (0-3) Neutrophils # (Auto) 20.8 x10^3/uL (1.8-7.7) Lymphocytes # (Auto) 0.5 x10^3/uL (1.0-4.8) Monocytes # (Auto) 2.6 x10^3/uL (0.0-1.1) Eosinophils # (Auto) 0.3 x10^3/uL (0.0-0.7) Basophils # (Auto) 0.1 x10^3/uL (0.0-0.2) Segmented Neutrophils % 87 % (35-66) Band Neutrophils % 10 % (0-9) Lymphocytes % 2 % (24-48) Monocytes % 1 % (0-10) Platelet Estimate Increased (ADEQUATE) Large Platelets Present Urine Collection Type U cath Urine Color [place] Urine Clarity Cloudy Urine pH (<5.0-8.0) Urine Specific [place] 1.020 (1.000-1.030) Urine Protein mg/dL (NEG-TRACE) Urine Glucose (UA) mg/dL (NEG) Urine Ketones (Stick) mg/dL (NEG) Urine Blood (NEG) Urine Nitrite (NEG) Urine Bilirubin (NEG) Urine Urobilinogen Dipstick mg/dL (0.2 mg/dL) Urine Leukocyte Esterase (NEG) Urine RBC Occ /HPF (0-2) Urine WBC 5-10 /HPF (0-4) Urine Squamous Epithelial Cells Mod /LPF Urine Amorphous Sediment Present /HPF Urine Bacteria Few /HPF (0-FEW) Urine Hyaline Casts Moderate /HPF Urine Granular Casts Few /HPF Urine Mucus Marked /LPF Lactic Acid Level 3.0 mmol/L (0.4-2.0) Troponin I Quantitative < 0.017 ng/mL (0.000-0.055) < 0.017 ng/mL (0.000-0.055) Urine Opiates Screen Neg (NEG) Urine Methadone Screen Neg (NEG) Urine Barbiturates Neg (NEG) Urine Phencyclidine Screen Neg (NEG) Urine Amphetamine/Methamphetamine Neg (NEG) Urine Benzodiazepines Screen Neg (NEG) Urine Cocaine Screen Pos (NEG) Urine Cannabinoids Screen Pos (NEG) Urine Ethyl Alcohol Neg (NEG) Prothrombin Time 15.5 SEC (11.7-14.0) Prothromb Time International Ratio 1.2 (0.8-1.1) Activated Partial Thromboplast Time 28 SEC (24-38) Sodium Level 125 mmol/L (136-145) Potassium Level 4.4 mmol/L (3.5-5.1) Chloride Level 94 mmol/L (98-107) Carbon Dioxide Level 19 mmol/L (21-32) Anion Gap 12 (6-14) Blood Urea Nitrogen 45 mg/dL (7-20) Creatinine 1.1 mg/dL (0.6-1.0) Estimated GFR (Cockcroft-Gault) 61.5 BUN/Creatinine Ratio 41 (6-20) Glucose Level 104 mg/dL (70-99) Calcium Level 9.6 mg/dL (8.5-10.1) Magnesium Level 2.1 mg/dL (1.8-2.4) Total Bilirubin 2.1 mg/dL (0.2-1.0) Aspartate Amino Transf (AST/SGOT) 189 U/L (15-37) Alanine Aminotransferase (ALT/SGPT) 50 U/L (14-59) Alkaline Phosphatase 143 U/L (46-116) IA-Qrc-I-Type Natriuretic Peptide 359 pg/mL (0-124) Total Protein 7.6 g/dL (6.4-8.2) Albumin 1.3 g/dL (3.4-5.0) Albumin/Globulin Ratio 0.2 (1.0-1.7) Lipase 139 U/L (73-393) Test 01/09/21 23:58 01/10/21 02:30 Lactic Acid Level 1.5 mmol/L (0.4-2.0) Troponin I Quantitative < 0.017 ng/mL (0.000-0.055) Objective: Assessment: Patient seen and examined ID consult dictated Impression Sepsis Extensive left lung mass Drug dependence Plan: Plan of Care Antibiotics as ordered Consult orthopedics for evaluation of right wrist? Septic joint Pulmonary consulted Thank you PITER PERAZA MD Jan 10, 2021 09:41
[2021-01-10] MEDS: DOXYCYCLINE HYCLATE 100 MG TABLET PO SCH ×2 (10:44→21:47)
[2021-01-10] MEDS ORDERED: DAPTOmycin (GENERIC) IVPB 280 MG in IV NORMAL SALINE 50ML 50 ML IV SCH (11:00)
[2021-01-10] MEDS: PIPERACILLIN/TAZOBACTAM 3.375 GM in IV NORMAL SALINE 50ML 50 ML IV SCH ×2 (11:21→17:02)
--- NOTE | 2021-01-10 11:36 | PDOC2 ---
BEATRIZ HANNA BOOK BINDER 01/10/21 1136: CARDIAC CONSULT DATE OF CONSULT Date of Consult DATE: 01/10/21 TIME: 11:15 REASON FOR CONSULT Reason for Consult: Abnormal EKG REFERRING PHYSICIAN Referring Physician: [facility] SOURCE Source: Chart review, Patient HISTORY OF PRESENT ILLNESS HISTORY OF PRESENT ILLNESS This is a 60 yo female admitted for complains of right hand pain. Apparently pt fell but no further details. She is a poor historian and mumbles her words and sometimes off tangent. NO chest pain or SOA. Further testing revelaed she is positive for cocaine and she is somewhat cahectic. No known hx of heart disease. Tests also revealed pneumonia and poissible left lung mass. She is SR/ST and concern about her EKG noting some ST elevation but no concerning cardiac symptoms and her troponin series are normal. She is currently septic with bacteremia. No known routine Rx use. PAST MEDICAL HISTORY Past Medical History Uknown PAST SURGICAL HISTORY Past Surgical History Unknown FAMILY HISTORY Family History: Family History Unknown SOCIAL HISTORY Drugs: Cocaine, Marijuana CURRENT MEDICATIONS CURRENT MEDICATIONS Current Medications Medications (Trade) Dose Ordered Sig/[place] Route PRN Reason Start Time Stop Time Status Last Admin Dose Admin Sodium Chloride 1,000 ml @ 1,000 mls/hr 1X ONCE IV 01/09/21 20:30 01/09/21 21:29 DC 01/09/21 21:31 Lorazepam (Ativan Inj) 1 mg 1X ONCE IVP 01/09/21 20:30 01/09/21 20:55 DC 01/09/21 21:31 Ceftriaxone Sodium (Rocephin) 1 gm 1X ONCE IVP 01/09/21 21:30 01/09/21 21:31 DC 01/09/21 21:32 Azithromycin 250 ml @ 250 mls/hr 1X ONCE IV 01/09/21 21:30 01/09/21 22:29 DC 01/09/21 21:32 Iohexol (Omnipaque 300 Mg/ml) 75 ml 1X ONCE IV 01/09/21 22:00 01/09/21 22:01 DC 01/09/21 22:05 Sodium Chloride 1,000 ml @ 150 mls/hr [id number] IV 01/10/21 01:00 01/10/21 09:50 Sodium Chloride 1,000 ml @ 1,000 mls/hr 1X ONCE IV 01/10/21 01:00 01/10/21 01:59 DC 01/10/21 01:07 Doxycycline Hyclate (Vibra-Tab) 100 mg BID PO 01/10/21 10:00 01/10/21 10:44 ALLERGIES ALLERGIES: Coded Allergies: No Known Drug Allergies (Unverified , 01/09/21) ROS Review of System unreliable, poor historian PHYSICAL EXAM General: Alert, Cooperative Lungs: Other (diminished) Heart: Regular rate (SR/ST), Normal S1, Normal S2, No murmurs Abdomen: Soft, No tenderness Extremities: No cyanosis, No edema Skin: No breakdown, No significant lesion Neuro: Sensation intact Psych/Mental Status: Other (tangential speech at times, no slurriness, mumbles and confuse) MUSCULOSKELETAL: Osteoarthritic changes both hands VITALS/I&O VITALS/I&O: Vital Signs Date Time Temp Pulse Resp B/P (MAP) Pulse Ox O2 Delivery O2 Flow Rate FiO2 01/10/21 08:00 Room Air 01/10/21 07:00 98.5 105 18 85/57 (66) 97 98.5 I & O 01/09/21 01/09/21 01/10/21 15:00 23:00 07:00 Intake Total 1250 ml 1050 ml Output Total 300 ml Balance 1250 ml 750 ml LABS Lab: Laboratory Tests Test 01/09/21 20:25 01/09/21 20:54 01/09/21 21:21 01/09/21 23:32 White Blood Count 24.3 x10^3/uL (4.0-11.0) H Red Blood Count 3.81 x10^6/uL (3.50-5.40) Hemoglobin 11.1 g/dL (12.0-15.5) L Hematocrit 32.5 % (36.0-47.0) L Mean Corpuscular Volume 85 fL (79-100) Mean Corpuscular Hemoglobin 29 pg (25-35) Mean Corpuscular Hemoglobin Concent 34 g/dL (31-37) Red Cell Distribution Width 13.2 % (11.5-14.5) Platelet Count 503 x10^3/uL (140-400) H Neutrophils (%) (Auto) 86 % (31-73) H Lymphocytes (%) (Auto) 2 % (24-48) L Monocytes (%) (Auto) 11 % (0-9) H Eosinophils (%) (Auto) 1 % (0-3) Basophils (%) (Auto) 0 % (0-3) Neutrophils # (Auto) 20.8 x10^3/uL (1.8-7.7) H Lymphocytes # (Auto) 0.5 x10^3/uL (1.0-4.8) L Monocytes # (Auto) 2.6 x10^3/uL (0.0-1.1) H Eosinophils # (Auto) 0.3 x10^3/uL (0.0-0.7) Basophils # (Auto) 0.1 x10^3/uL (0.0-0.2) Segmented Neutrophils % 87 % (35-66) H Band Neutrophils % 10 % (0-9) H Lymphocytes % 2 % (24-48) L Monocytes % 1 % (0-10) Platelet Estimate Increased (ADEQUATE) Large Platelets Present Urine Collection Type U cath Urine Color [place] Urine Clarity Cloudy Urine pH (<5.0-8.0) Urine Specific [place] 1.020 (1.000-1.030) Urine Protein mg/dL (NEG-TRACE) Urine Glucose (UA) mg/dL (NEG) Urine Ketones (Stick) mg/dL (NEG) Urine Blood (NEG) Urine Nitrite (NEG) Urine Bilirubin (NEG) Urine Urobilinogen Dipstick mg/dL (0.2 mg/dL) Urine Leukocyte Esterase (NEG) Urine RBC Occ /HPF (0-2) Urine WBC 5-10 /HPF (0-4) Urine Squamous Epithelial Cells Mod /LPF Urine Amorphous Sediment Present /HPF Urine Bacteria Few /HPF (0-FEW) Urine Hyaline Casts Moderate /HPF Urine Granular Casts Few /HPF Urine Mucus Marked /LPF Lactic Acid Level 3.0 mmol/L (0.4-2.0) H Troponin I Quantitative < 0.017 ng/mL (0.000-0.055) < 0.017 ng/mL (0.000-0.055) Urine Opiates Screen Neg (NEG) Urine Methadone Screen Neg (NEG) Urine Barbiturates Neg (NEG) Urine Phencyclidine Screen Neg (NEG) Urine Amphetamine/Methamphetamine Neg (NEG) Urine Benzodiazepines Screen Neg (NEG) Urine Cocaine Screen Pos (NEG) Urine Cannabinoids Screen Pos (NEG) Urine Ethyl Alcohol Neg (NEG) Prothrombin Time 15.5 SEC (11.7-14.0) H Prothrombin Time INR 1.2 (0.8-1.1) H Activated Partial Thromboplast Time 28 SEC (24-38) Sodium Level 125 mmol/L (136-145) L Potassium Level 4.4 mmol/L (3.5-5.1) Chloride Level 94 mmol/L (98-107) L Carbon Dioxide Level 19 mmol/L (21-32) L Anion Gap 12 (6-14) Blood Urea Nitrogen 45 mg/dL (7-20) H Creatinine 1.1 mg/dL (0.6-1.0) H Estimated GFR (Cockcroft-Gault) 61.5 BUN/Creatinine Ratio 41 (6-20) H Glucose Level 104 mg/dL (70-99) H Calcium Level 9.6 mg/dL (8.5-10.1) Magnesium Level 2.1 mg/dL (1.8-2.4) Total Bilirubin 2.1 mg/dL (0.2-1.0) H Aspartate Amino Transferase (AST) 189 U/L (15-37) H Alanine Aminotransferase (ALT) 50 U/L (14-59) Alkaline Phosphatase 143 U/L (46-116) H ES-Imt-A-Type Natriuretic Peptide 359 pg/mL (0-124) H Total Protein 7.6 g/dL (6.4-8.2) Albumin 1.3 g/dL (3.4-5.0) L Albumin/Globulin Ratio 0.2 (1.0-1.7) L Lipase 139 U/L (73-393) Test 01/09/21 23:58 01/10/21 02:30 01/10/21 09:55 Lactic Acid Level 1.5 mmol/L (0.4-2.0) Troponin I Quantitative < 0.017 ng/mL (0.000-0.055) Erythrocyte Sedimentation Rate 125 (0-25) H C-Reactive Protein, Quantitative 199.1 mg/L (0-3.3) H Laboratory Tests 01/09/21 20:25 Laboratory Tests 01/09/21 21:21 ASSESSMENT/PLAN ASSESSMENT/PLAN 1. Sepsis/bacteremia with possible pneumonia 2. Right wrist pain with recent fall: no reported syncope 3. Left lung mass 4. Substance abuse: UDS+ marijuana and cocaine 5. Abnormal EKG: possible pericarditis vs early repolarization No arrhythmias, trops nml and no cardiac symptoms. 6. PUI 7. Encephalopathy: unclear if she has hx of mental illness Recommendations 1. Awaiting Covid-19 PCR. Will obtain TTE 2. Pressors as warranted. IDF following, antibiotic ongoing. Pulmonary consult 3. Supportive care SHIRA BONILLA MD 01/10/21 1634: CARDIAC CONSULT ASSESSMENT/PLAN ASSESSMENT/PLAN Patient seen and evaluated. I agree with our nurse practitioners assessment and plan. Sepsis. Possible pneumonia. Left lung mass. Pressors as needed for blood pressure. ID and pulmonary following. Abnormal EKG. Considerations include pericarditis and early polarization. No elevation in troponin. We will check an echocardiogram once Covid testing negative. PUI. Encephalopathy of uncertain etiology. Substance abuse. Drug screen positive for marijuana and cocaine. BEATRIZ HANNA APRN Jan 10, 2021 11:36 SHIRA BONILLA MD Jan 10, 2021 16:34
--- NOTE | 2021-01-10 12:57 | RAD ---
EXAM: XR RT WRIST 3VIEWS 01/10/2021 9:30 AM CLINICAL INDICATION: Right wrist pain and swelling COMPARISON: None TECHNIQUE: 3 views of the right wrist FINDINGS: No acute fracture. Alignment is normal. Joint spaces are maintained. There is mild soft ti ssue swelling at the wrist. IMPRESSION: No acute osseous abnormality. Mild diffuse soft tissue swelling. Electronically signed by: Arelis Lorenzo MD (01/10/2021 12:54 PM) [id number]
--- NOTE | 2021-01-10 13:47 | CONS ---
DATE OF CONSULTATION: 01/10/2021 REFERRING PHYSICIAN: Dr. Olmstead. REASON FOR CONSULTATION: Left lung mass. HISTORY OF PRESENT ILLNESS: A 60-year-old female was brought to the ED by EMS with complaints of right hand pain after falling earlier. The patient is a poor historian. She admits to cocaine use 3 days ago, she moved here from [place] in May. She was found to have leukocytosis, lactic acidosis, elevated BUN and creatinine. She has lost 80 pounds in the last couple of months. She complains of pain in the right hand, unable to move the whole extremity due to pain. Her temperature was 97.3. She was tachycardic, admitted to ICU. Blood cultures were done. She underwent chest x-ray which showed left upper and mid lung mass, consolidation. Hand x-ray showed no acute osseous abnormality. Cervical and head CT showed no fracture or subluxation, left upper lobe consolidation with septal thickening, may represent infection or edema. CT chest showed extensive left upper lobe consolidation, concerning for pneumonia. Recommend followup to ensure resolution, small left pleural effusion, mediastinal left hilar lymphadenopathy, likely reactive. The patient received a dose of azithromycin and ceftriaxone in the ER. ID consultation has been requested for antibiotic management. REVIEW OF SYSTEMS: Negative except for above in HPI. PAST MEDICAL HISTORY: Denies diabetes, quit smoking a couple of years ago, weight loss, drug abuse. SOCIAL HISTORY: Denies smoking, quit a couple of years ago. No ETOH, marijuana and cocaine use, no IVDU. Lives alone. CURRENT MEDICATIONS: One time dose of azithromycin and ceftriaxone. Other medications reviewed in medication list. PHYSICAL EXAMINATION: VITAL SIGNS: Temperature 98.2, pulse 112, respiratory rate 18, blood pressure 107/62, oxygen saturation 94% on room air. GENERAL: Thin, cachectic, tired, lethargic female lying in bed in no acute distress. HEENT: Normocephalic, atraumatic. Temporal wasting. No thrush. NECK: Supple, no JVD. LUNGS: Decreased breath sounds, mainly over the left lower lung. No wheezing. HEART: S1, S2. Could not appreciate any murmurs. ABDOMEN: Soft, scaphoid. Bowel sounds present, nontender. EXTREMITIES: No edema, no cyanosis. Wasting. DERMATOLOGIC: Warm, dry, no generalized rash. MUSCULOSKELETAL: Right hand, decreased range of motion, appears to have mild effusion at the wrist, unable to flex or extend due to pain. No warmth. NEUROLOGIC: Alert, oriented x 3, grossly nonfocal. Appears weak. Has generalized weakness. PSYCHIATRIC: Calm and cooperative. LABORATORY DATA: WBC 24.3, hemoglobin 11.1, hematocrit 32.5, platelets 503, bands 10. Sodium 125, potassium 4.4, chloride 94, bicarbonate 19, BUN 45, creatinine 1.1, glucose 104. Lactate 3.0. Troponin normal. Repeat lactate 1.5. Total bilirubin 2.1, AST 189, ALT 50, alkaline phosphatase 143. BNP 359. Albumin 1.3, lipase 139. UA, 5-10 WBCs, otherwise negative. UDS positive for cocaine and cannabinoids. IMAGING: CT chest as above. Head and cervical CT as above. Hand x-ray as above. Chest x-ray as above. IMPRESSION: 1. Sepsis. 2. Gram-positive bacteremia, 4/4 bottles present on admission. 3. Weight loss. 4. Extensive left lung mass. 5. Hyponatremia. 6. Leukocytosis and lactic acidosis. 7. Abnormal LFTs. 8. Cocaine and marijuana dependence. 9. Right hand pain with history of fall. X-ray without acute osseous abnormality, concern for possible septic joint. RECOMMENDATIONS: 1. Start daptomycin and Zosyn. 2. Monitor labs 3. Repeat blood cultures in a.m. 4. Follow up GPC in blood cultures. 5. The patient may benefit from bronchoscopy. 5. Followup cultures. 6. Maintain aspiration precaution. 7. Consult orthopedics to evaluate for right wrist, possible septic arthritis. 8. Continue supportive care. Thank you for allowing me to participate in this patient's care. If you have any questions, do not hesitate to contact me. D/W Dr Quintero CCT time spent [address]: Keon TID: [id number] [facility]
--- NOTE | 2021-01-10 16:22 | CARD ---
MR#: [id number] Date of Study: 01/10/2021 Ordering Physician: BEATRIZ HANNA, Referring Physician: Tutu CHURCH: Mohamud Merino [facility] APPROVED REPORT EXAM: Two-dimensional and M-mode echocardiogram with Doppler and color Doppler. Other Information Quality : AverageHR: 112bpm Rhythm : NSR INDICATION Abnormal ECG RISK FACTORS Sepsis, Pneumonia, Polysubstance abuse 2D DIMENSIONS Left Atrium(2D)2.6 (1.6-4.0cm)IVSd0.8 (0.7-1.1cm) Aortic Root(2D)3.2 (2.0-3.7cm)LVDd4.9 (3.9-5.9cm) LVOT Diameter2.1 (1.8-2.4cm)PWd0.8 (0.7-1.1cm) LVDs3.3 (2.5-4.0cm)FS (%) 32.5 % SV67.3 mlLVEF(%)60.7 (>50%) Aortic Valve AoV Peak John.150.8cm/sAoV VTI21.1cm AO Peak GR.9.1mmHgLVOT Peak John.95.9cm/s AO Mean GR.6mmHgAVA (VMAX)2.17cm2 Mitral Valve MV E Kdgmrngv30.7cm/sMV DECEL [id number] MV A Eshugwok65.8cm/sE/A Ratio0.8 Pulmonary Valve PV Peak Fdkfklkp36.3cm/s Tricuspid Valve TR P. Qschzcsd636gn/sTR Peak Gr.21mmHg LEFT VENTRICLE The left ventricle is normal size. There is normal left ventricular wall thickness. The left ventricu lar systolic function is normal and the ejection fraction is within normal range. EF 55% There is nor mal LV segmental wall motion. Tissue Doppler imaging reveals mild left ventricular diastolic dysfunct ion. No left ventricle thrombus noted on this study. There is no ventricular septal defect visualized . There is no left ventricular aneurysm. RIGHT VENTRICLE The right ventricle is normal size. There is normal right ventricular wall thickness. The right ventr icular systolic function is normal. ATRIA The left atrium size is normal. The right atrium size is normal. The interatrial septum is intact wit h no evidence for an atrial septal defect or patent foramen ovale as noted on 2-D or Doppler imaging. AORTIC VALVE The aortic valve is normal in structure and function. Doppler and Color Flow revealed no significant aortic regurgitation. There is no significant aortic valvular stenosis. There is no aortic valvular v egetation. MITRAL VALVE The mitral valve is normal in structure and function. There is no evidence of mitral valve prolapse. There is no mitral valve stenosis. Doppler and Color-flow revealed trace to mild mitral regurgitation . TRICUSPID VALVE The tricuspid valve is normal in structure and function. Doppler and Color Flow revealed trace to mil d tricuspid regurgitation. There is no tricuspid valve prolapse or vegetation. There is no tricuspid valve stenosis. PULMONIC VALVE Doppler and Color Flow revealed no pulmonic valvular regurgitation. There is no pulmonic valvular eric nosis. GREAT VESSELS The aortic root is normal in size. The ascending aorta is normal in size. The IVC is normal in size a nd collapses >50% with inspiration. PERICARDIAL EFFUSION There is no pleural effusion. There is no evidence of significant pericardial effusion. Critical Notification Critical Value: No <Conclusion> The left ventricular systolic function is normal and the ejection fraction is within normal range. EF 55% There is normal LV segmental wall motion. Signed by : Bharat Iniguez, Electronically Approved : 01/10/2021 16:22:18
[2021-01-10] MEDS ORDERED: ONDANSETRON PF 4 MG/2 ML VIAL. IVP PRN (18:00)
[2021-01-10] MEDS ORDERED: fentaNYL PF VIAL 100 MCG/2 ML VIAL IVP PRN (18:00)
[2021-01-10] MEDS: HEPARIN for SUB-Q USE 5,000 UNIT/ML VIAL. SQ SCH (21:52)
--- NOTE | 2021-01-10 22:36 | CONS ---
DATE OF CONSULTATION: 01/10/2021 ATTENDING PHYSICIAN: Logan Quintero MD REASON FOR CONSULTATION: The patient is seen in pulmonary consultation at the request of Dr. Quintero for abnormal CT chest revealing extensive left upper lobe consolidation. HISTORY OF PRESENT ILLNESS: The patient is a 60-year-old that presented with "hurting all over." She also was having some difficulty with right wrist pain. The patient has been slightly short of breath. She denies any hemoptysis. No fever, chills or night sweats. She does smoke tobacco. She also smokes marijuana with cocaine in it. She was evaluated, underwent CT chest. I personally reviewed the CT revealing extensive consolidated left upper lobe lung. Left upper lobe consolidation with a small left-sided pleural effusion with some mediastinal and left hilar adenopathy. There is no discrete lung mass. PAST MEDICAL HISTORY: Otherwise remarkable for diabetes, underlying COPD, unknown FEV1, tobacco dependent drug use. SOCIAL HISTORY: She does admit to smoking marijuana and cocaine. CURRENT MEDICATIONS: List reviewed. REVIEW OF SYSTEMS: As indicated above, otherwise 10-point system is reviewed and negative. PHYSICAL EXAMINATION: VITAL SIGNS: Since admission, she is afebrile. HEENT: The sclerae were nonicteric. NECK: Jugular venous distention was not elevated. No lymphadenopathy. CHEST: Full expansion. LUNGS: Diminished breath sounds on the left. CARDIOVASCULAR: Regular rate and rhythm with S1, S2, no S3. ABDOMEN: Soft, nontender, and nondistended. EXTREMITIES: No clubbing, cyanosis, or edema. LABORATORY DATA: White count was elevated. Hemoglobin and hematocrit were noted. Electrolytes were noted. BUN and creatinine were elevated. SARS-CoV-2 was negative. Hepatitis profile was negative. Toxicology screen was positive for cocaine and cannabinoids. INR was 1.2. IMPRESSION: 1. Left upper lobe suspect postobstructive pneumonia difficult to tell if this is lung mass versus consolidation. 2. Tobacco dependent. 3. Positive for cocaine and cannabinoids. 4. Leukocytosis. 5. Bacteremia 4/4 bottles. 6. Abnormal LFTs. PLAN: 1. The patient has been seen by Infectious Disease Service, will continue daptomycin and Zosyn. 2. Repeat blood cultures. 3. We will proceed with bronchoscopy to rule out postobstructive process. I do appreciate the privilege in sharing in the patient's care. EUSEBIO DR: Madyson TID: [id number]
[2021-01-11] MEDS: PIPERACILLIN/TAZOBACTAM 3.375 GM in IV NORMAL SALINE 50ML 50 ML IV SCH ×2 (00:12→05:39)
[2021-01-11 02:21] VITALS: BP 104/56
[2021-01-11] MEDS: HEPARIN for SUB-Q USE 5,000 UNIT/ML VIAL. SQ SCH ×3 (05:40→21:33)
[2021-01-11] MEDS: IV NORMAL SALINE 1000ML BAG 1,000 ML IV SCH (05:43)
--- NOTE | 2021-01-11 06:43 | PDOC ---
Infectious Disease Note Subjective: Subjective Patient feels a little better Right hand and wrist swelling and pain continues Vital Signs: Vital Signs Vital Signs Date Time Temp Pulse Resp B/P (MAP) Pulse Ox O2 Delivery O2 Flow Rate FiO2 01/11/21 02:21 99.9 122 18 104/56 (72) 94 Room Air 99.9 Physical Exam: PHYSICAL EXAM GENERAL: Thin, cachectic, female lying in bed in no acute distress. HEENT: Normocephalic, atraumatic. Temporal wasting. No thrush. NECK: Supple, no JVD. LUNGS: Decreased breath sounds, mainly over the left lower lung. No wheezing. HEART: S1, S2. Could not appreciate any murmurs. ABDOMEN: Soft, scaphoid. Bowel sounds present, nontender. EXTREMITIES: No edema, no cyanosis. Wasting. DERMATOLOGIC: Warm, dry, no generalized rash. MUSCULOSKELETAL: Right hand, decreased range of motion, appears to have mild effusion at the wrist, unable to flex or extend due to pain. No warmth. NEUROLOGIC: Alert, oriented x 3, grossly nonfocal. Appears weak. Has generalized weakness. PSYCHIATRIC: Calm and cooperative. Medications: Inpatient Meds: Medications reviewed. Labs: Lab Laboratory Tests Test 01/10/21 09:55 Erythrocyte Sedimentation Rate 125 (0-25) C-Reactive Protein, Quantitative 199.1 mg/L (0-3.3) Treponema pallidum Antibody Nonreactive (Nonreactive) Hepatitis A IgM Antibody Nonreactive (Nonreactive) Hepatitis B Surface Antigen Nonreactive (Nonreactive) Hepatitis B Core IgM Antibody Nonreactive (Nonreactive) Hepatitis C IgG Antibody Nonreactive (Nonreactive) Objective: Assessment: 1. Sepsis. 2. Gram-positive bacteremia, 4/4 bottles present on admission. 3. Weight loss. 4. Extensive left lung mass. 5. Hyponatremia. 6. Leukocytosis and lactic acidosis. 7. Abnormal LFTs. 8. Cocaine and marijuana dependence. 9. Right hand pain with history of fall. X-ray without acute osseous abnormality, concern for possible septic joint. Plan: Plan of Care 1. Continue daptomycin and Zosyn. 2. Monitor labs 3. Repeat blood cultures in a.m. 4. Follow up GPC in blood cultures. 5. Awaiting bronchoscopy 5. Followup cultures. 6. Maintain aspiration precaution. 7. Consult orthopedics to evaluate for right wrist, possible septic arthritis. 8. Continue supportive care. PITER PERAZA MD Jan 11, 2021 06:43
[2021-01-11 07:00] VITALS: BP 83/46
[2021-01-11 07:28] LABS: BASO % 0 % (0-3); EOS % 0 % (0-3); HEMATOCRIT 24.6 % (36.0-47.0); HEMOGLOBIN 8.1 g/dL (12.0-15.5); LYMPH # 1.1 x10^3/uL (1.0-4.8); LYMPH % 7 % (24-48); MEAN CORPUSCULAR HEMOGLOBIN 29 pg (25-35); MEAN CORPUSCULAR HGB CONC 33 g/dL (31-37); MEAN CORPUSCULAR VOLUME 87 fL (79-100); MONO # 0.4 x10^3/uL (0.0-1.1); MONO % 3 % (0-9); NEUT # 14.6 x10^3/uL (1.8-7.7); NEUT % 90 % (31-73); PLATELET COUNT 443 x10^3/uL (140-400); RED BLOOD COUNT 2.84 x10^6/uL (3.50-5.40); RED CELL DISTRIBUTION WIDTH 13.9 % (11.5-14.5); WHITE BLOOD COUNT 16.2 x10^3/uL (4.0-11.0)
[2021-01-11 07:37] LABS: ALBUMIN 0.9 g/dL (3.4-5.0); ALBUMIN/GLOBULIN RATIO 0.2 (1.0-1.7); CALCIUM 8.4 mg/dL (8.5-10.1); CREATININE 0.8 mg/dL (0.6-1.0); GFR 88.8; POTASSIUM 3.5 mmol/L (3.5-5.1); TOTAL BILIRUBIN 0.8 mg/dL (0.2-1.0); TOTAL PROTEIN 6.2 g/dL (6.4-8.2)
--- NOTE | 2021-01-11 07:54 | PDOC ---
[employer] PROGRESS NOTE Date of Service DOS: DATE: 01/11/21 TIME: 07:53 Chief Complaint Chief Complaint A/P: Acute encephalopathy - metabolic from sepsis, hyponatremia and toxic from cocaine Sepsis - with gram positive bacteremia and JAY pneumonia, likely gram positive given bacteremia but just as likely gram negative given possible aspiration and cocaine abuse CAP (community acquired pneumonia) - rocephin and azithromycin initial coverage. COVID [address] of the chest with contrast confirms multifocal pneumonia in JAY. Pulm consulted for bronchoscopy consideration Gram-positive bacteremia, 4/4 bottles present on admission - ID consulted, daptomycin ordered Right hand pain - wrist stiffness, possibly septic arthritis. Cocaine use - counseled on cessation Nonspecific ST-T wave electrocardiographic changes - consulted cardiology, will trend troponins. Given gram positive bacteremia 4/4 bottles positive will ask for echocardiogram to evaluated for possible valve vegetations Hyponatremia - likely hypovolemic, will trend, hydrate Weight loss - possibly related to cocaine, but left lung consolidation could be mass. 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 She was very confused and unclear about history but does note moving here from [place] at the end of 2019 and used cocaine "a few days ago". She notes weight loss, fever and chills and right hand pain and stiffness and is aware she is confused. Cannot give much more history, but notes she thinks she had a heart attack back in [place], but then says she didn't. She is a little short of breath and has a slight cough, notes she may have vomiting recently but thinks it may have been due to pain. WBC 24.3, Hb 11.1, platelets 503 INR 1.2 NA 125, K4.4, BUN 45, CR 1.1, glucose 104 bilirubin 2.1, AST 29, ALT 50, alk phos 1.3, albumin 1.3, NT proBNP 359 troponin 0 lactic acid 3 initially down to 1.5 UDS positive for cocaine and cannabinoids 0809 EKG sinus tachycardia 143 bpm, left axis deviation, normal intervals, J- point elevations in inferior lateral leads with hyperacute/peaked T waves, Q- wave lead III and aVF Chest radiograph with left upper lobe opacity Right hand radiograph without fracture CT head with no acute abnormality CT of the chest with contrast confirms multifocal left upper lobe pneumonia with hilar fullness and mediastinal lymphadenopathy. BP 90/50 after empiric antibiotics and fluids for sepsis, given rocephin and azithromycin. Admitted to ICU for further care. Afebrile overnight. Transferred to [facility]. N.p.o. for possible bronchoscopy today.WBC 16.2, Hb 8.1, platelets 443, NA 135 albumin 0.9 CRP 199 and sed rate 125 Vitals/I&O Vitals/I&O: Vital Signs Date Time Temp Pulse Resp B/P (MAP) Pulse Ox O2 Delivery O2 Flow Rate FiO2 01/11/21 02:21 99.9 122 18 104/56 (72) 94 Room Air 99.9 I & O 01/10/21 01/10/21 01/11/21 15:00 23:00 07:00 Intake Total 300 ml 0 ml Output Total 425 ml 1100 ml 500 ml Balance -425 ml -800 ml -500 ml Physical Exam General: Alert, Cooperative, moderate distress Heart: Regular rate (SR/ST), Normal S1, Normal S2, No murmurs Abdomen: Normal bowel sounds, Soft, No tenderness, No hepatosplenomegaly, No masses Extremities: No clubbing, No cyanosis, No edema, Normal pulses, No tenderness/swelling Skin: No rashes, No breakdown, No significant lesion Labs Labs: Laboratory Tests Test 01/10/21 09:55 01/11/21 06:55 Erythrocyte Sedimentation Rate 125 (0-25) C-Reactive Protein, Quantitative 199.1 mg/L (0-3.3) Treponema pallidum Antibody Nonreactive (Nonreactive) Hepatitis A IgM Antibody Nonreactive (Nonreactive) Hepatitis B Surface Antigen Nonreactive (Nonreactive) Hepatitis B Core IgM Antibody Nonreactive (Nonreactive) Hepatitis C IgG Antibody Nonreactive (Nonreactive) White Blood Count 16.2 x10^3/uL (4.0-11.0) Red Blood Count 2.84 x10^6/uL (3.50-5.40) Hemoglobin 8.1 g/dL (12.0-15.5) Hematocrit 24.6 % (36.0-47.0) Mean Corpuscular Volume 87 fL (79-100) Mean Corpuscular Hemoglobin 29 pg (25-35) Mean Corpuscular Hemoglobin Concent 33 g/dL (31-37) Red Cell Distribution Width 13.9 % (11.5-14.5) Platelet Count 443 x10^3/uL (140-400) Neutrophils (%) (Auto) 90 % (31-73) Lymphocytes (%) (Auto) 7 % (24-48) Monocytes (%) (Auto) 3 % (0-9) Eosinophils (%) (Auto) 0 % (0-3) Basophils (%) (Auto) 0 % (0-3) Neutrophils # (Auto) 14.6 x10^3/uL (1.8-7.7) Lymphocytes # (Auto) 1.1 x10^3/uL (1.0-4.8) Monocytes # (Auto) 0.4 x10^3/uL (0.0-1.1) Eosinophils # (Auto) 0.0 x10^3/uL (0.0-0.7) Basophils # (Auto) 0.0 x10^3/uL (0.0-0.2) Sodium Level 135 mmol/L (136-145) Potassium Level 3.5 mmol/L (3.5-5.1) Chloride Level 106 mmol/L (98-107) Carbon Dioxide Level 19 mmol/L (21-32) Anion Gap 10 (6-14) Blood Urea Nitrogen 17 mg/dL (7-20) Creatinine 0.8 mg/dL (0.6-1.0) Estimated GFR (Cockcroft-Gault) 88.8 BUN/Creatinine Ratio 21 (6-20) Glucose Level 93 mg/dL (70-99) Calcium Level 8.4 mg/dL (8.5-10.1) Total Bilirubin 0.8 mg/dL (0.2-1.0) Aspartate Amino Transf (AST/SGOT) 73 U/L (15-37) Alanine Aminotransferase (ALT/SGPT) 25 U/L (14-59) Alkaline Phosphatase 117 U/L (46-116) Creatine Kinase 8 U/L (26-192) Total Protein 6.2 g/dL (6.4-8.2) Albumin 0.9 g/dL (3.4-5.0) Albumin/Globulin Ratio 0.2 (1.0-1.7) Assessment and Plan Assessmemt and Plan Problems Medical Problems: (1) CAP (community acquired pneumonia) Status: Acute (2) Cocaine use Status: Acute (3) Hyponatremia Status: Acute (4) Nonspecific ST-T wave electrocardiographic changes Status: Acute (5) Person under investigation for COVID-19 Status: Acute (6) Sepsis Status: Acute Comment Review of Relevant I have reviewed the following items terry (where applicable) has been applied. Medications: Current Medications Medications (Trade) Dose Ordered Sig/[place] Route PRN Reason Start Time Stop Time Status Last Admin Dose Admin Piperacillin Sod/ Tazobactam Sod 3.375 gm/Sodium Chloride 50 ml @ 100 mls/hr Q6HRS IV 01/10/21 12:00 01/11/21 05:39 Daptomycin 280 mg/ Sodium Chloride 50 ml @ 100 mls/hr Q24H IV 01/10/21 11:00 01/10/21 11:20 Doxycycline Hyclate (Vibra-Tab) 100 mg BID PO 01/10/21 10:00 01/10/21 21:47 Heparin Sodium (Porcine) (Heparin Sodium) 5,000 unit Q8HRS SQ 01/10/21 22:00 01/10/21 21:52 Justifications for Admission Other Justification THEA CHAN MD Jan 11, 2021 07:54
[2021-01-11] MEDS ORDERED: ALBUMIN HUMAN 5% 500 ML IV ONE (08:00)
--- NOTE | 2021-01-11 08:33 | PDOC ---
PULMONARY PROGRESS NOTES DATE: 01/11/21 TIME: 08:33 Subjective Pt. remains on NC oxygen no S/P bronchoscopy No increased SOA or cough Vitals Vital Signs Date Time Temp Pulse Resp B/P (MAP) Pulse Ox O2 Delivery O2 Flow Rate FiO2 01/11/21 07:00 99.1 111 22 83/46 (58) 97 Room Air 99.1 ROS: No Nausea, No Chest Pain, No Abdominal Pain, No Increase Cough General: Alert Lungs: Crackles Cardiovascular: S1 Abdomen: Soft Neuro Exam: Alert Skin: Warm Labs Laboratory Tests Test 01/09/21 20:25 01/09/21 20:54 01/09/21 21:21 01/09/21 22:55 White Blood Count 24.3 x10^3/uL (4.0-11.0) Red Blood Count 3.81 x10^6/uL (3.50-5.40) Hemoglobin 11.1 g/dL (12.0-15.5) Hematocrit 32.5 % (36.0-47.0) Mean Corpuscular Volume 85 fL (79-100) Mean Corpuscular Hemoglobin 29 pg (25-35) Mean Corpuscular Hemoglobin Concent 34 g/dL (31-37) Red Cell Distribution Width 13.2 % (11.5-14.5) Platelet Count 503 x10^3/uL (140-400) Neutrophils (%) (Auto) 86 % (31-73) Lymphocytes (%) (Auto) 2 % (24-48) Monocytes (%) (Auto) 11 % (0-9) Eosinophils (%) (Auto) 1 % (0-3) Basophils (%) (Auto) 0 % (0-3) Neutrophils # (Auto) 20.8 x10^3/uL (1.8-7.7) Lymphocytes # (Auto) 0.5 x10^3/uL (1.0-4.8) Monocytes # (Auto) 2.6 x10^3/uL (0.0-1.1) Eosinophils # (Auto) 0.3 x10^3/uL (0.0-0.7) Basophils # (Auto) 0.1 x10^3/uL (0.0-0.2) Segmented Neutrophils % 87 % (35-66) Band Neutrophils % 10 % (0-9) Lymphocytes % 2 % (24-48) Monocytes % 1 % (0-10) Platelet Estimate Increased (ADEQUATE) Large Platelets Present Urine Collection Type U cath Urine Color [place] Urine Clarity Cloudy Urine pH (<5.0-8.0) Urine Specific [place] 1.020 (1.000-1.030) Urine Protein mg/dL (NEG-TRACE) Urine Glucose (UA) mg/dL (NEG) Urine Ketones (Stick) mg/dL (NEG) Urine Blood (NEG) Urine Nitrite (NEG) Urine Bilirubin (NEG) Urine Urobilinogen Dipstick mg/dL (0.2 mg/dL) Urine Leukocyte Esterase (NEG) Urine RBC Occ /HPF (0-2) Urine WBC 5-10 /HPF (0-4) Urine Squamous Epithelial Cells Mod /LPF Urine Amorphous Sediment Present /HPF Urine Bacteria Few /HPF (0-FEW) Urine Hyaline Casts Moderate /HPF Urine Granular Casts Few /HPF Urine Mucus Marked /LPF Lactic Acid Level 3.0 mmol/L (0.4-2.0) Troponin I Quantitative < 0.017 ng/mL (0.000-0.055) Urine Opiates Screen Neg (NEG) Urine Methadone Screen Neg (NEG) Urine Barbiturates Neg (NEG) Urine Phencyclidine Screen Neg (NEG) Urine Amphetamine/Methamphetamine Neg (NEG) Urine Benzodiazepines Screen Neg (NEG) Urine Cocaine Screen Pos (NEG) Urine Cannabinoids Screen Pos (NEG) Urine Ethyl Alcohol Neg (NEG) Prothrombin Time 15.5 SEC (11.7-14.0) Prothromb Time International Ratio 1.2 (0.8-1.1) Activated Partial Thromboplast Time 28 SEC (24-38) Sodium Level 125 mmol/L (136-145) Potassium Level 4.4 mmol/L (3.5-5.1) Chloride Level 94 mmol/L (98-107) Carbon Dioxide Level 19 mmol/L (21-32) Anion Gap 12 (6-14) Blood Urea Nitrogen 45 mg/dL (7-20) Creatinine 1.1 mg/dL (0.6-1.0) Estimated GFR (Cockcroft-Gault) 61.5 BUN/Creatinine Ratio 41 (6-20) Glucose Level 104 mg/dL (70-99) Calcium Level 9.6 mg/dL (8.5-10.1) Magnesium Level 2.1 mg/dL (1.8-2.4) Total Bilirubin 2.1 mg/dL (0.2-1.0) Aspartate Amino Transf (AST/SGOT) 189 U/L (15-37) Alanine Aminotransferase (ALT/SGPT) 50 U/L (14-59) Alkaline Phosphatase 143 U/L (46-116) ZM-Uya-T-Type Natriuretic Peptide 359 pg/mL (0-124) Total Protein 7.6 g/dL (6.4-8.2) Albumin 1.3 g/dL (3.4-5.0) Albumin/Globulin Ratio 0.2 (1.0-1.7) Lipase 139 U/L (73-393) SARS-CoV-2 RNA (ALBA) Negative (Negative) Test 01/09/21 23:32 01/09/21 23:58 01/10/21 02:30 01/10/21 09:55 Troponin I Quantitative < 0.017 ng/mL (0.000-0.055) < 0.017 ng/mL (0.000-0.055) Lactic Acid Level 1.5 mmol/L (0.4-2.0) Erythrocyte Sedimentation Rate 125 (0-25) C-Reactive Protein, Quantitative 199.1 mg/L (0-3.3) Treponema pallidum Antibody Nonreactive (Nonreactive) Hepatitis A IgM Antibody Nonreactive (Nonreactive) Hepatitis B Surface Antigen Nonreactive (Nonreactive) Hepatitis B Core IgM Antibody Nonreactive (Nonreactive) Hepatitis C IgG Antibody Nonreactive (Nonreactive) Test 01/11/21 06:55 White Blood Count 16.2 x10^3/uL (4.0-11.0) Red Blood Count 2.84 x10^6/uL (3.50-5.40) Hemoglobin 8.1 g/dL (12.0-15.5) Hematocrit 24.6 % (36.0-47.0) Mean Corpuscular Volume 87 fL (79-100) Mean Corpuscular Hemoglobin 29 pg (25-35) Mean Corpuscular Hemoglobin Concent 33 g/dL (31-37) Red Cell Distribution Width 13.9 % (11.5-14.5) Platelet Count 443 x10^3/uL (140-400) Neutrophils (%) (Auto) 90 % (31-73) Lymphocytes (%) (Auto) 7 % (24-48) Monocytes (%) (Auto) 3 % (0-9) Eosinophils (%) (Auto) 0 % (0-3) Basophils (%) (Auto) 0 % (0-3) Neutrophils # (Auto) 14.6 x10^3/uL (1.8-7.7) Lymphocytes # (Auto) 1.1 x10^3/uL (1.0-4.8) Monocytes # (Auto) 0.4 x10^3/uL (0.0-1.1) Eosinophils # (Auto) 0.0 x10^3/uL (0.0-0.7) Basophils # (Auto) 0.0 x10^3/uL (0.0-0.2) Sodium Level 135 mmol/L (136-145) Potassium Level 3.5 mmol/L (3.5-5.1) Chloride Level 106 mmol/L (98-107) Carbon Dioxide Level 19 mmol/L (21-32) Anion Gap 10 (6-14) Blood Urea Nitrogen 17 mg/dL (7-20) Creatinine 0.8 mg/dL (0.6-1.0) Estimated GFR (Cockcroft-Gault) 88.8 BUN/Creatinine Ratio 21 (6-20) Glucose Level 93 mg/dL (70-99) Calcium Level 8.4 mg/dL (8.5-10.1) Total Bilirubin 0.8 mg/dL (0.2-1.0) Aspartate Amino Transf (AST/SGOT) 73 U/L (15-37) Alanine Aminotransferase (ALT/SGPT) 25 U/L (14-59) Alkaline Phosphatase 117 U/L (46-116) Creatine Kinase 8 U/L (26-192) Total Protein 6.2 g/dL (6.4-8.2) Albumin 0.9 g/dL (3.4-5.0) Albumin/Globulin Ratio 0.2 (1.0-1.7) Laboratory Tests Test 01/10/21 09:55 01/11/21 06:55 Erythrocyte Sedimentation Rate 125 (0-25) C-Reactive Protein, Quantitative 199.1 mg/L (0-3.3) Treponema pallidum Antibody Nonreactive (Nonreactive) Hepatitis A IgM Antibody Nonreactive (Nonreactive) Hepatitis B Surface Antigen Nonreactive (Nonreactive) Hepatitis B Core IgM Antibody Nonreactive (Nonreactive) Hepatitis C IgG Antibody Nonreactive (Nonreactive) White Blood Count 16.2 x10^3/uL (4.0-11.0) Red Blood Count 2.84 x10^6/uL (3.50-5.40) Hemoglobin 8.1 g/dL (12.0-15.5) Hematocrit 24.6 % (36.0-47.0) Mean Corpuscular Volume 87 fL (79-100) Mean Corpuscular Hemoglobin 29 pg (25-35) Mean Corpuscular Hemoglobin Concent 33 g/dL (31-37) Red Cell Distribution Width 13.9 % (11.5-14.5) Platelet Count 443 x10^3/uL (140-400) Neutrophils (%) (Auto) 90 % (31-73) Lymphocytes (%) (Auto) 7 % (24-48) Monocytes (%) (Auto) 3 % (0-9) Eosinophils (%) (Auto) 0 % (0-3) Basophils (%) (Auto) 0 % (0-3) Neutrophils # (Auto) 14.6 x10^3/uL (1.8-7.7) Lymphocytes # (Auto) 1.1 x10^3/uL (1.0-4.8) Monocytes # (Auto) 0.4 x10^3/uL (0.0-1.1) Eosinophils # (Auto) 0.0 x10^3/uL (0.0-0.7) Basophils # (Auto) 0.0 x10^3/uL (0.0-0.2) Sodium Level 135 mmol/L (136-145) Potassium Level 3.5 mmol/L (3.5-5.1) Chloride Level 106 mmol/L (98-107) Carbon Dioxide Level 19 mmol/L (21-32) Anion Gap 10 (6-14) Blood Urea Nitrogen 17 mg/dL (7-20) Creatinine 0.8 mg/dL (0.6-1.0) Estimated GFR (Cockcroft-Gault) 88.8 BUN/Creatinine Ratio 21 (6-20) Glucose Level 93 mg/dL (70-99) Calcium Level 8.4 mg/dL (8.5-10.1) Total Bilirubin 0.8 mg/dL (0.2-1.0) Aspartate Amino Transf (AST/SGOT) 73 U/L (15-37) Alanine Aminotransferase (ALT/SGPT) 25 U/L (14-59) Alkaline Phosphatase 117 U/L (46-116) Creatine Kinase 8 U/L (26-192) Total Protein 6.2 g/dL (6.4-8.2) Albumin 0.9 g/dL (3.4-5.0) Albumin/Globulin Ratio 0.2 (1.0-1.7) Medications Active Scripts Medications Dose Route/Sig Max Daily Dose Days Date Category No Known Medications Prior To Admisstion (Info) Each 1 Each PRN PRN 01/10/21 Reported Impression . IMPRESSION: 1. Left upper lobe suspect postobstructive pneumonia difficult to tell if this is lung mass versus consolidation. 2. Tobacco dependent. 3. Positive for cocaine and cannabinoids. 4. Leukocytosis. 5. Bacteremia 4/4 bottles. 6. Abnormal LFTs. Plan . Updated 01/11/21 Continue supplemental oxygen to keep sats above 92%, now on [place] NEBS S/P bronchoscopy 01/11/21--see report Follow ID recs for ABX, Follow cultures Follow ortho recs-- concern for septic arthritis Follow Cardiology recs DVT/GI PPX D/W RN PLAN: 01/10/21 1. The patient has been seen by Infectious Disease Service, will continue daptomycin and Zosyn. 2. Repeat blood cultures. 3. We will proceed with bronchoscopy to rule out postobstructive process. GUANACO PHAM MD Jan 11, 2021 08:33
[2021-01-11] MEDS ORDERED: EPINEPHrine 1 MG/ML VIAL INJ PRN (10:30)
[2021-01-11] MEDS ORDERED: LIDOCAINE 2% VISCOUS 100 ML BOTTLE. MM PRN (10:30)
[2021-01-11] MEDS ORDERED: 0.9 % SODIUM CHLORIDE 10 ML DISP.SYRIN. IV PRN (10:30)
[2021-01-11] MEDS ORDERED: LIDOCAINE 1% Multi-Dose 20 ML VIAL. INJ PRN (10:30)
[2021-01-11] MEDS ORDERED: LIDOCAINE 4% TOPICAL 50 ML SOLUTION. MM PRN (10:30)
[2021-01-11] MEDS ORDERED: ALBUTEROL SULFATE 2.5 MG/3 ML NEBU. NEB PRN (10:30)
[2021-01-11] MEDS ORDERED: LIDOCAINE 2% VISCOUS 100 ML BOTTLE. ONE (10:32)
[2021-01-11] MEDS ORDERED: EPINEPHrine 1 MG/ML VIAL ONE (10:32)
[2021-01-11] MEDS ORDERED: LIDOCAINE 1% Multi-Dose 20 ML VIAL. ONE (10:32)
[2021-01-11] MEDS ORDERED: LIDOCAINE 4% TOPICAL 50 ML SOLUTION. ONE (10:32)
[2021-01-11] MEDS ORDERED: ALBUTEROL SULFATE 2.5 MG/3 ML NEBU. ONE (10:32)
[2021-01-11] MEDS ORDERED: LIDOCAINE 2% PF 5 ML VIAL. ONE (10:45)
[2021-01-11] MEDS ORDERED: PROPOFOL 10 MG/ML (20ML) VIAL. IV ONE (10:45)
[2021-01-11 10:52] VITALS: BP 101/60
[2021-01-11] MEDS: IV RINGERS,LACTATED 1000ML 1,000 ML IV SCH ×2 (10:56→22:58)
[2021-01-11] MEDS ORDERED: VANCOMYCIN 1.25 GM in IV NORMAL SALINE 250ML 250 ML IV ONE (12:00)
[2021-01-11] MEDS: VANCOMYCIN PER PHARMACY MC PRN (12:24)
--- NOTE | 2021-01-11 12:26 | OP ---
DATE OF SURGERY: 01/11/2021 PROCEDURE: Bronchoscopy. INDICATIONS: The patient with an extensive left upper lobe consolidation undergoing a diagnostic bronchoscopy. Risks, benefits and alternatives reviewed with the patient. She consented. SEDATION: Please see Anesthesia notes. DESCRIPTION OF PROCEDURE: A timeout was performed prior to sedation. Vital signs and O2 saturations were maintained within normal limits throughout the procedure. The bronchoscope was passed through the right naris. The vocal cords were identified moving bilaterally without any dysfunction. The vocal cords were anesthetized with a total of 5 mL of 4% lidocaine. The bronchoscope was passed through the vocal cords into the proximal trachea, which was normal. The distal trachea was likewise normal. The right and left segments and subsegments were visualized. There was no endobronchial lesion. The scope was wedged into the left upper lobe bronchus and a bronchoalveolar lavage was performed. The return was dark green in color, appeared to be exudative pus type of material. IMPRESSION: 1. Normal vocal cords. 2. No endobronchial lesion. 3. Purulent material coming from the left upper lobe. BAL was performed. PLAN: We will await the BAL results. Continue empiric antibiotics. JUAN DR: Madyson TID: [id number]
--- NOTE | 2021-01-11 12:30 | PDOC ---
CARDIO Progress Notes Date and Time Date of Service 01/11/2021 Time of Evaluation 1210 Subjective Subjective: No Chest Pain, No shortness of breath, No Palpitations Vitals Vitals Vital Signs Date Time Temp Pulse Resp B/P (MAP) Pulse Ox O2 Delivery O2 Flow Rate FiO2 01/11/21 11:41 104 20 104/56 97 Nasal Cannula 3 01/11/21 11:25 98.4 98.4 Weight Weight [ ] Input and Output Intake and Output Intake and Output 01/11/21 07:00 Intake Total 300 ml Output Total 2025 ml Balance -1725 ml Intake Oral 300 ml Output Urine Total 2025 ml Laboratory Labs Laboratory Tests Test 01/11/21 06:55 White Blood Count 16.2 x10^3/uL (4.0-11.0) Red Blood Count 2.84 x10^6/uL (3.50-5.40) Hemoglobin 8.1 g/dL (12.0-15.5) Hematocrit 24.6 % (36.0-47.0) Mean Corpuscular Volume 87 fL (79-100) Mean Corpuscular Hemoglobin 29 pg (25-35) Mean Corpuscular Hemoglobin Concent 33 g/dL (31-37) Red Cell Distribution Width 13.9 % (11.5-14.5) Platelet Count 443 x10^3/uL (140-400) Neutrophils (%) (Auto) 90 % (31-73) Lymphocytes (%) (Auto) 7 % (24-48) Monocytes (%) (Auto) 3 % (0-9) Eosinophils (%) (Auto) 0 % (0-3) Basophils (%) (Auto) 0 % (0-3) Neutrophils # (Auto) 14.6 x10^3/uL (1.8-7.7) Lymphocytes # (Auto) 1.1 x10^3/uL (1.0-4.8) Monocytes # (Auto) 0.4 x10^3/uL (0.0-1.1) Eosinophils # (Auto) 0.0 x10^3/uL (0.0-0.7) Basophils # (Auto) 0.0 x10^3/uL (0.0-0.2) Sodium Level 135 mmol/L (136-145) Potassium Level 3.5 mmol/L (3.5-5.1) Chloride Level 106 mmol/L (98-107) Carbon Dioxide Level 19 mmol/L (21-32) Anion Gap 10 (6-14) Blood Urea Nitrogen 17 mg/dL (7-20) Creatinine 0.8 mg/dL (0.6-1.0) Estimated GFR (Cockcroft-Gault) 88.8 BUN/Creatinine Ratio 21 (6-20) Glucose Level 93 mg/dL (70-99) Calcium Level 8.4 mg/dL (8.5-10.1) Total Bilirubin 0.8 mg/dL (0.2-1.0) Aspartate Amino Transf (AST/SGOT) 73 U/L (15-37) Alanine Aminotransferase (ALT/SGPT) 25 U/L (14-59) Alkaline Phosphatase 117 U/L (46-116) Creatine Kinase 8 U/L (26-192) Total Protein 6.2 g/dL (6.4-8.2) Albumin 0.9 g/dL (3.4-5.0) Albumin/Globulin Ratio 0.2 (1.0-1.7) Microbiology Micro Microbiology 01/09/21 Urine Culture - Final, Complete 01/09/21 Blood Culture - Preliminary, Resulted Physical Exam HEENT: Neck Supple W Full Motion Chest: Symmetric LUNGS: Other (diminished) Heart: S1S2, RRR (Sr no ectopies) Abdomen: Soft N/T Extremities: No Edema, No Calf Tenderness Neurology: alert, oriented, follow commands Assessment Assessment 1. Sepsis/bacteremia with possible pneumonia 2. Right wrist pain with recent fall: no reported syncope 3. Left lung mass 4. Substance abuse: UDS+ marijuana and cocaine 5. Abnormal EKG: possible pericarditis vs early repolarization No arrhythmias, trops nml and no cardiac symptoms. EF and WM nml per TTE 6. Encephalopathy: unclear if she has hx of mental illness 7. Normocytic anemia: Hgb at 8.1 from 11.1. Per PCP. Recommendations 1. Bronchoscopy today, results pending per pulmonary 2. antibiotics ongoing 3. Supportive care 4. Nothing further cardiac silveira. Will consider future PRAVIN if ID deemed it needed. Justicifation of Admission Dx: Justifications for Admission: Justification of Admission Dx: Yes BEATRIZ HANNA BEHAVIORAL SPECIALIST Jan 11, 2021 12:29
[2021-01-11] MEDS: DOXYCYCLINE HYCLATE 100 MG TABLET PO SCH ×2 (13:34→21:27)
[2021-01-11] MEDS: cefTRIAXone IV Push 2 GM VIAL. IVP SCH (13:36)
[2021-01-11 14:53] VITALS: BP 101/61
[2021-01-11] MEDS: ACETAMINOPHEN 325 MG TABLET. PO PRN (16:42)
[2021-01-11] MEDS ORDERED: PIPERACILLIN/TAZOBACTAM 3.375 GM in IV NORMAL SALINE 50ML 50 ML IV SCH (18:00)
[2021-01-11 19:00] VITALS: BP 117/64
[2021-01-11] MEDS: LACTOBACILLUS RHAMNOSUS GG 1 CAPSULE. PO SCH (21:27)
[2021-01-11] MEDS: VANCOMYCIN 750 MG in IV NORMAL SALINE 250ML 250 ML IV SCH (23:00)
[2021-01-11 23:05] VITALS: BP 99/61
[2021-01-12 02:51] VITALS: BP 124/60
[2021-01-12] MEDS: HEPARIN for SUB-Q USE 5,000 UNIT/ML VIAL. SQ SCH ×3 (06:19→21:23)
[2021-01-12 07:00] VITALS: BP 132/72
[2021-01-12 07:56] LABS: BASO % 0 % (0-3); EOS % 0 % (0-3); HEMATOCRIT 24.1 % (36.0-47.0); LYMPH # 1.5 x10^3/uL (1.0-4.8); LYMPH % 12 % (24-48); MEAN CORPUSCULAR HEMOGLOBIN 29 pg (25-35); MEAN CORPUSCULAR HGB CONC 33 g/dL (31-37); MEAN CORPUSCULAR VOLUME 87 fL (79-100); MONO # 0.4 x10^3/uL (0.0-1.1); MONO % 3 % (0-9); NEUT # 10.4 x10^3/uL (1.8-7.7); NEUT % 84 % (31-73); PLATELET COUNT 440 x10^3/uL (140-400); RED BLOOD COUNT 2.78 x10^6/uL (3.50-5.40); WHITE BLOOD COUNT 12.3 x10^3/uL (4.0-11.0)
--- NOTE | 2021-01-12 08:00 | PDOC ---
[facility] PROGRESS NOTE Date of Service DOS: DATE: 01/12/21 TIME: 07:56 Chief Complaint Chief Complaint A/P: Acute encephalopathy - metabolic from sepsis, hyponatremia and toxic from cocaine Sepsis - with gram positive bacteremia and JAY pneumonia, likely gram positive given bacteremia but just as likely gram negative given possible aspiration and cocaine abuse CAP (community acquired pneumonia) - rocephin and azithromycin initial coverage. COVID [address] of the chest with contrast confirms multifocal pneumonia in JAY. Pulm consulted for bronchoscopy consideration Gram-positive bacteremia, 4/4 bottles present on admission - ID consulted, daptomycin ordered Right hand pain - wrist stiffness, possibly septic arthritis. Cocaine use - counseled on cessation Nonspecific ST-T wave electrocardiographic changes - consulted cardiology, will trend troponins. Given gram positive bacteremia 4/4 bottles positive will ask for echocardiogram to evaluated for possible valve vegetations Hyponatremia - likely hypovolemic, will trend, hydrate Weight loss - possibly related to cocaine, but left lung consolidation could be mass. Will get HIV testing consent Lactic acidosis - from sepsis, will monitor Abnormal LFTs - likely from hypotension and cocaine toxicity, will monitor Anemia - likely of chronic disease vs iron deficiency Severe protein calorie malnutrition - will have early over the horizon targeting supervisor intervention FEN - General diet PPX - lovenox FULL CODE Dispo - ICU CC time 48 minutes History of Present Illness History of Present Illness Ms Mccrary is a 60 yo F who takes no routine prescribed medications, presents the ED brought in by EMS with complaints of right hand pain after falling during the day on 01/09/2021. She was very confused and unclear about history but does note moving here from [place] at the end of 2019 and used cocaine "a few days ago". She notes weight loss, fever and chills and right hand pain and stiffness and is aware she is confused. Cannot give much more history, but notes she thinks she had a heart attack back in [place], but then says she didn't. She is a little short of breath and has a slight cough, notes she may have vomiting recently but thinks it may have been due to pain. WBC 24.3, Hb 11.1, platelets 503 INR 1.2 NA 125, K4.4, BUN 45, CR 1.1, glucose 104 bilirubin 2.1, AST 29, ALT 50, alk phos 1.3, albumin 1.3, NT proBNP 359 troponin 0 lactic acid 3 initially down to 1.5 UDS positive for cocaine and cannabinoids 0809 EKG sinus tachycardia 143 bpm, left axis deviation, normal intervals, J- point elevations in inferior lateral leads with hyperacute/peaked T waves, Q- wave lead III and aVF Chest radiograph with left upper lobe opacity Right hand radiograph without fracture CT head with no acute abnormality CT of the chest with contrast confirms multifocal left upper lobe pneumonia with hilar fullness and mediastinal lymphadenopathy. BP 90/50 after empiric antibiotics and fluids for sepsis, given rocephin and azithromycin. Admitted to ICU for further care. 01/11: Afebrile overnight. Transferred to [facility]. N.p.o. for possible bronchoscopy today.WBC 16.2, Hb 8.1, platelets 443, NA 135 albumin 0.9 CRP 199 and sed rate 125. To bronchoscopy with purulent secretions in left upper lobe no discrete mass found. BAL culture obtained. T-max 100.1 F overnight. Blood pressure improved. Feeling little better appetite improved. Right wrist pain swelling and stiffness still present. K low. Awaiting ortho eval. Vitals/I&O Vitals/I&O: Vital Signs Date Time Temp Pulse Resp B/P (MAP) Pulse Ox O2 Delivery O2 Flow Rate FiO2 01/12/21 02:51 100.1 112 18 124/60 (81) 94 Room Air 100.1 01/11/21 11:41 3 l I & O 01/11/21 01/11/21 01/12/21 14:59 22:59 06:59 Intake Total 560 ml 950 ml 350 ml Output Total 1000 ml 1050 ml Balance 560 ml -50 ml -700 ml Physical Exam Physical Exam: GENERAL: Thin, cachectic, female lying in bed in no acute distress. HEENT: Normocephalic, atraumatic. Temporal wasting. No thrush. NECK: Supple, no JVD. LUNGS: Decreased breath sounds, mainly over the left lower lung. No wheezing. HEART: S1, S2. Could not appreciate any murmurs. ABDOMEN: Soft, scaphoid. Bowel sounds present, nontender. EXTREMITIES: No edema, no cyanosis. Wasting. DERMATOLOGIC: Warm, dry, no generalized rash. MUSCULOSKELETAL: Right hand, decreased range of motion, appears to have mild effusion at the wrist, unable to flex or extend due to pain. No warmth. NEUROLOGIC: Alert, oriented x 3, grossly nonfocal. Appears weak. Has generalized weakness. PSYCHIATRIC: Calm and cooperative. General: Alert, Cooperative, moderate distress Heart: Regular rate (SR/ST), Normal S1, Normal S2, No murmurs Lungs: Crackles Abdomen: Normal bowel sounds, Soft, No tenderness, No hepatosplenomegaly, No masses Extremities: No clubbing, No cyanosis, No edema, Normal pulses, No tenderness/swelling Skin: No rashes, No breakdown, No significant lesion Assessment and Plan Assessmemt and Plan Problems Medical Problems: (1) CAP (community acquired pneumonia) Status: Acute (2) Cocaine use Status: Acute (3) Hyponatremia Status: Acute (4) Nonspecific ST-T wave electrocardiographic changes Status: Acute (5) Person under investigation for COVID-19 Status: Acute (6) Sepsis Status: Acute Comment Review of Relevant I have reviewed the following items terry (where applicable) has been applied. Medications: Current Medications Medications (Trade) Dose Ordered Sig/[place] Route PRN Reason Start Time Stop Time Status Last Admin Dose Admin Albumin Human 500 ml @ 125 mls/hr 1X ONCE IV 01/11/21 08:00 01/11/21 11:59 DC 01/11/21 08:10 Lactobacillus Rhamnosus (Culturelle) 1 cap BID PO 01/11/21 21:00 01/11/21 21:27 Albuterol Sulfate (Ventolin Neb Soln) 2.5 mg PRN 1X PRN NEB SHORTNESS OF BREATH 01/11/21 10:30 01/12/21 10:29 01/11/21 10:43 Ringer's Solution 1,000 ml @ 75 mls/hr [id number] IV 01/11/21 11:00 01/11/21 22:58 Ceftriaxone Sodium (Rocephin) 2 gm Q24H IVP 01/11/21 12:00 01/11/21 13:36 Vancomycin HCl (Vanco Per Pharmacy) 1 each PRN DAILY PRN MC SEE COMMENTS 01/11/21 11:15 01/11/21 12:24 Vancomycin HCl 1.25 gm/Sodium Chloride 250 ml @ 166.667 mls/hr 1X ONCE IV 01/11/21 12:00 01/11/21 13:29 DC 01/11/21 12:04 Vancomycin HCl 750 mg/Sodium Chloride 250 ml @ 250 mls/hr Q12H IV 01/11/21 23:00 01/11/21 23:00 Justifications for Admission Other Justification THEA CHAN MD Jan 12, 2021 07:59
[2021-01-12 08:13] LABS: ALBUMIN 1.3 g/dL (3.4-5.0); ALBUMIN/GLOBULIN RATIO 0.3 (1.0-1.7); CALCIUM 8.3 mg/dL (8.5-10.1); CREATININE 0.5 mg/dL (0.6-1.0); GFR 152.8; POTASSIUM 3.2 mmol/L (3.5-5.1); TOTAL BILIRUBIN 0.7 mg/dL (0.2-1.0); TOTAL PROTEIN 6.2 g/dL (6.4-8.2)
[2021-01-12] MEDS: VANCOMYCIN PER PHARMACY MC PRN (09:02)
[2021-01-12] MEDS: DOXYCYCLINE HYCLATE 100 MG TABLET PO SCH (09:32)
[2021-01-12] MEDS: ACETAMINOPHEN 325 MG TABLET. PO PRN ×2 (09:32→22:13)
[2021-01-12] MEDS: LACTOBACILLUS RHAMNOSUS GG 1 CAPSULE. PO SCH ×2 (09:32→21:22)
--- NOTE | 2021-01-12 09:44 | PDOC ---
Infectious Disease Note Subjective: Subjective Patient feels a little better Right wrist swelling and pain continues Vital Signs: Vital Signs Vital Signs Date Time Temp Pulse Resp B/P (MAP) Pulse Ox O2 Delivery O2 Flow Rate FiO2 01/12/21 07:00 99.4 118 20 132/72 (92) 95 Room Air 99.4 01/11/21 11:41 3 Physical Exam: PHYSICAL EXAM GENERAL: Thin, cachectic, female lying in bed in no acute distress. HEENT: Normocephalic, atraumatic. Temporal wasting. No thrush. NECK: Supple, no JVD. LUNGS: Decreased breath sounds, mainly over the left lower lung. No wheezing. HEART: S1, S2. Could not appreciate any murmurs. ABDOMEN: Soft, scaphoid. Bowel sounds present, nontender. EXTREMITIES: No edema, no cyanosis. Wasting. DERMATOLOGIC: Warm, dry, no generalized rash. MUSCULOSKELETAL: Right hand, decreased range of motion, appears to have mild effusion at the wrist, unable to flex or extend due to pain. No warmth. NEUROLOGIC: Alert, oriented x 3, grossly nonfocal. Appears weak. Has generalized weakness. PSYCHIATRIC: Calm and cooperative. Medications: Inpatient Meds: Medications reviewed. Labs: Lab Laboratory Tests Test 01/12/21 06:10 White Blood Count 12.3 x10^3/uL (4.0-11.0) Red Blood Count 2.78 x10^6/uL (3.50-5.40) Hemoglobin 8.0 g/dL (12.0-15.5) Hematocrit 24.1 % (36.0-47.0) Mean Corpuscular Volume 87 fL (79-100) Mean Corpuscular Hemoglobin 29 pg (25-35) Mean Corpuscular Hemoglobin Concent 33 g/dL (31-37) Red Cell Distribution Width 14.0 % (11.5-14.5) Platelet Count 440 x10^3/uL (140-400) Neutrophils (%) (Auto) 84 % (31-73) Lymphocytes (%) (Auto) 12 % (24-48) Monocytes (%) (Auto) 3 % (0-9) Eosinophils (%) (Auto) 0 % (0-3) Basophils (%) (Auto) 0 % (0-3) Neutrophils # (Auto) 10.4 x10^3/uL (1.8-7.7) Lymphocytes # (Auto) 1.5 x10^3/uL (1.0-4.8) Monocytes # (Auto) 0.4 x10^3/uL (0.0-1.1) Eosinophils # (Auto) 0.0 x10^3/uL (0.0-0.7) Basophils # (Auto) 0.0 x10^3/uL (0.0-0.2) Sodium Level 136 mmol/L (136-145) Potassium Level 3.2 mmol/L (3.5-5.1) Chloride Level 106 mmol/L (98-107) Carbon Dioxide Level 20 mmol/L (21-32) Anion Gap 10 (6-14) Blood Urea Nitrogen 10 mg/dL (7-20) Creatinine 0.5 mg/dL (0.6-1.0) Estimated GFR (Cockcroft-Gault) 152.8 BUN/Creatinine Ratio 20 (6-20) Glucose Level 83 mg/dL (70-99) Calcium Level 8.3 mg/dL (8.5-10.1) Total Bilirubin 0.7 mg/dL (0.2-1.0) Aspartate Amino Transf (AST/SGOT) 54 U/L (15-37) Alanine Aminotransferase (ALT/SGPT) 23 U/L (14-59) Alkaline Phosphatase 112 U/L (46-116) Total Protein 6.2 g/dL (6.4-8.2) Albumin 1.3 g/dL (3.4-5.0) Albumin/Globulin Ratio 0.3 (1.0-1.7) Objective: Assessment: 1. Sepsis. 2. Strep pneumoniae bacteremia, 4/4 bottles present on admission. 3. Weight loss. 4. Extensive left lung mass. Status post bronchoscopy 5. Hyponatremia. 6. Leukocytosis and lactic acidosis. 7. Abnormal LFTs. 8. Cocaine and marijuana dependence. 9. Right wrist pain, concern for septic arthritis Plan: Plan of Care Continue ceftriaxone and IV vancomycin DC doxycycline Pharmacy to assist with Vanco dosing Consult orthopedics to evaluate for right wrist, possible septic arthritis, still pending ?. Monitor labs and cultures Discussed with nursing staff PITER PERAZA MD Jan 12, 2021 09:43
[2021-01-12 11:20] VITALS: BP 106/64
[2021-01-12] MEDS ORDERED: POTASSIUM CHLORIDE 20 MEQ TABLET.ER. PO ONE (11:30)
[2021-01-12] MEDS: VANCOMYCIN 750 MG in IV NORMAL SALINE 250ML 250 ML IV SCH ×2 (11:35→22:58)
[2021-01-12] MEDS: cefTRIAXone IV Push 2 GM VIAL. IVP SCH (13:02)
[2021-01-12 15:00] VITALS: BP 147/72
--- NOTE | 2021-01-12 16:12 | PDOC ---
PULMONARY PROGRESS NOTES DATE: 01/12/21 TIME: 16:09 Subjective Pt. remains on NC oxygen No increased SOA or cough febrile overnight Vitals Vital Signs Date Time Temp Pulse Resp B/P (MAP) Pulse Ox O2 Delivery O2 Flow Rate FiO2 01/12/21 15:00 98.3 107 18 147/72 (97) 96 Room Air 98.3 01/11/21 11:41 3 ROS: No Nausea, No Chest Pain, No Abdominal Pain, No Increase Cough General: Alert Lungs: Crackles Cardiovascular: S1 Abdomen: Soft Neuro Exam: Alert Skin: Warm Labs Laboratory Tests Test 01/11/21 06:55 01/12/21 06:10 White Blood Count 16.2 x10^3/uL (4.0-11.0) 12.3 x10^3/uL (4.0-11.0) Red Blood Count 2.84 x10^6/uL (3.50-5.40) 2.78 x10^6/uL (3.50-5.40) Hemoglobin 8.1 g/dL (12.0-15.5) 8.0 g/dL (12.0-15.5) Hematocrit 24.6 % (36.0-47.0) 24.1 % (36.0-47.0) Mean Corpuscular Volume 87 fL (79-100) 87 fL (79-100) Mean Corpuscular Hemoglobin 29 pg (25-35) 29 pg (25-35) Mean Corpuscular Hemoglobin Concent 33 g/dL (31-37) 33 g/dL (31-37) Red Cell Distribution Width 13.9 % (11.5-14.5) 14.0 % (11.5-14.5) Platelet Count 443 x10^3/uL (140-400) 440 x10^3/uL (140-400) Neutrophils (%) (Auto) 90 % (31-73) 84 % (31-73) Lymphocytes (%) (Auto) 7 % (24-48) 12 % (24-48) Monocytes (%) (Auto) 3 % (0-9) 3 % (0-9) Eosinophils (%) (Auto) 0 % (0-3) 0 % (0-3) Basophils (%) (Auto) 0 % (0-3) 0 % (0-3) Neutrophils # (Auto) 14.6 x10^3/uL (1.8-7.7) 10.4 x10^3/uL (1.8-7.7) Lymphocytes # (Auto) 1.1 x10^3/uL (1.0-4.8) 1.5 x10^3/uL (1.0-4.8) Monocytes # (Auto) 0.4 x10^3/uL (0.0-1.1) 0.4 x10^3/uL (0.0-1.1) Eosinophils # (Auto) 0.0 x10^3/uL (0.0-0.7) 0.0 x10^3/uL (0.0-0.7) Basophils # (Auto) 0.0 x10^3/uL (0.0-0.2) 0.0 x10^3/uL (0.0-0.2) Sodium Level 135 mmol/L (136-145) 136 mmol/L (136-145) Potassium Level 3.5 mmol/L (3.5-5.1) 3.2 mmol/L (3.5-5.1) Chloride Level 106 mmol/L (98-107) 106 mmol/L (98-107) Carbon Dioxide Level 19 mmol/L (21-32) 20 mmol/L (21-32) Anion Gap 10 (6-14) 10 (6-14) Blood Urea Nitrogen 17 mg/dL (7-20) 10 mg/dL (7-20) Creatinine 0.8 mg/dL (0.6-1.0) 0.5 mg/dL (0.6-1.0) Estimated GFR (Cockcroft-Gault) 88.8 152.8 BUN/Creatinine Ratio 21 (6-20) 20 (6-20) Glucose Level 93 mg/dL (70-99) 83 mg/dL (70-99) Calcium Level 8.4 mg/dL (8.5-10.1) 8.3 mg/dL (8.5-10.1) Total Bilirubin 0.8 mg/dL (0.2-1.0) 0.7 mg/dL (0.2-1.0) Aspartate Amino Transf (AST/SGOT) 73 U/L (15-37) 54 U/L (15-37) Alanine Aminotransferase (ALT/SGPT) 25 U/L (14-59) 23 U/L (14-59) Alkaline Phosphatase 117 U/L (46-116) 112 U/L (46-116) Creatine Kinase 8 U/L (26-192) Total Protein 6.2 g/dL (6.4-8.2) 6.2 g/dL (6.4-8.2) Albumin 0.9 g/dL (3.4-5.0) 1.3 g/dL (3.4-5.0) Albumin/Globulin Ratio 0.2 (1.0-1.7) 0.3 (1.0-1.7) Uric Acid 1.5 mg/dL (2.6-6.0) Magnesium Level 1.4 mg/dL (1.8-2.4) Laboratory Tests Test 01/12/21 06:10 White Blood Count 12.3 x10^3/uL (4.0-11.0) Red Blood Count 2.78 x10^6/uL (3.50-5.40) Hemoglobin 8.0 g/dL (12.0-15.5) Hematocrit 24.1 % (36.0-47.0) Mean Corpuscular Volume 87 fL (79-100) Mean Corpuscular Hemoglobin 29 pg (25-35) Mean Corpuscular Hemoglobin Concent 33 g/dL (31-37) Red Cell Distribution Width 14.0 % (11.5-14.5) Platelet Count 440 x10^3/uL (140-400) Neutrophils (%) (Auto) 84 % (31-73) Lymphocytes (%) (Auto) 12 % (24-48) Monocytes (%) (Auto) 3 % (0-9) Eosinophils (%) (Auto) 0 % (0-3) Basophils (%) (Auto) 0 % (0-3) Neutrophils # (Auto) 10.4 x10^3/uL (1.8-7.7) Lymphocytes # (Auto) 1.5 x10^3/uL (1.0-4.8) Monocytes # (Auto) 0.4 x10^3/uL (0.0-1.1) Eosinophils # (Auto) 0.0 x10^3/uL (0.0-0.7) Basophils # (Auto) 0.0 x10^3/uL (0.0-0.2) Sodium Level 136 mmol/L (136-145) Potassium Level 3.2 mmol/L (3.5-5.1) Chloride Level 106 mmol/L (98-107) Carbon Dioxide Level 20 mmol/L (21-32) Anion Gap 10 (6-14) Blood Urea Nitrogen 10 mg/dL (7-20) Creatinine 0.5 mg/dL (0.6-1.0) Estimated GFR (Cockcroft-Gault) 152.8 BUN/Creatinine Ratio 20 (6-20) Glucose Level 83 mg/dL (70-99) Uric Acid 1.5 mg/dL (2.6-6.0) Calcium Level 8.3 mg/dL (8.5-10.1) Magnesium Level 1.4 mg/dL (1.8-2.4) Total Bilirubin 0.7 mg/dL (0.2-1.0) Aspartate Amino Transf (AST/SGOT) 54 U/L (15-37) Alanine Aminotransferase (ALT/SGPT) 23 U/L (14-59) Alkaline Phosphatase 112 U/L (46-116) Total Protein 6.2 g/dL (6.4-8.2) Albumin 1.3 g/dL (3.4-5.0) Albumin/Globulin Ratio 0.3 (1.0-1.7) Medications Active Scripts Medications Dose Route/Sig Max Daily Dose Days Date Category No Known Medications Prior To Admisstion (Info) Each 1 Each PRN PRN 01/10/21 Reported Impression . IMPRESSION: 1. Left upper lobe suspect postobstructive pneumonia S/P bronchoscopy 2. Tobacco dependent. 3. Positive for cocaine and cannabinoids. 4. Leukocytosis--improved 5. Bacteremia 4/4 bottles. 6. Abnormal LFTs. Plan . Updated 01/12/21 Continue supplemental oxygen to keep sats above 92%, now on [place] NEBS S/P bronchoscopy 01/11/21--negative for endobronchial lesion, BAL negative Follow ID recs for ABX, Follow cultures Follow ortho recs-- concern for septic arthritis Follow Cardiology recs DVT/GI PPX D/W RN Updated 01/11/21 Continue supplemental oxygen to keep sats above 92%, now on [place] NEBS S/P bronchoscopy 01/11/21--see report Follow ID recs for ABX, Follow cultures Follow ortho recs-- concern for septic arthritis Follow Cardiology recs DVT/GI PPX D/W RN PLAN: 01/10/21 1. The patient has been seen by Infectious Disease Service, will continue daptomycin and Zosyn. 2. Repeat blood cultures. 3. We will proceed with bronchoscopy to rule out postobstructive process. GUANACO PHAM MD Jan 12, 2021 16:12
[2021-01-12 19:13] VITALS: BP 113/64
[2021-01-12 22:35] LABS: VANC TR 9.4 mcg/mL (10.0-20.0)
[2021-01-12 23:09] VITALS: BP 124/63
[2021-01-13 02:15] VITALS: BP 107/59
[2021-01-13] MEDS: HEPARIN for SUB-Q USE 5,000 UNIT/ML VIAL. SQ SCH ×3 (06:17→21:08)
[2021-01-13 07:00] VITALS: BP 120/65
[2021-01-13] MEDS: VANCOMYCIN PER PHARMACY MC PRN (07:31)
[2021-01-13 07:40] LABS: BASO % 0 % (0-3); EOS % 0 % (0-3); HEMATOCRIT 24.6 % (36.0-47.0); HEMOGLOBIN 8.5 g/dL (12.0-15.5); LYMPH # 1.8 x10^3/uL (1.0-4.8); LYMPH % 17 % (24-48); MEAN CORPUSCULAR HEMOGLOBIN 30 pg (25-35); MEAN CORPUSCULAR HGB CONC 35 g/dL (31-37); MEAN CORPUSCULAR VOLUME 86 fL (79-100); MONO # 0.5 x10^3/uL (0.0-1.1); MONO % 5 % (0-9); NEUT # 8.1 x10^3/uL (1.8-7.7); NEUT % 77 % (31-73); PLATELET COUNT 484 x10^3/uL (140-400); RED BLOOD COUNT 2.87 x10^6/uL (3.50-5.40); RED CELL DISTRIBUTION WIDTH 13.8 % (11.5-14.5); WHITE BLOOD COUNT 10.4 x10^3/uL (4.0-11.0)
[2021-01-13 08:00] LABS: ALBUMIN 1.1 g/dL (3.4-5.0); ALBUMIN/GLOBULIN RATIO 0.2 (1.0-1.7); CALCIUM 8.2 mg/dL (8.5-10.1); CREATININE 0.6 mg/dL (0.6-1.0); GFR 123.8; POTASSIUM 3.5 mmol/L (3.5-5.1); TOTAL BILIRUBIN 0.5 mg/dL (0.2-1.0); TOTAL PROTEIN 6.6 g/dL (6.4-8.2)
[2021-01-13] MEDS ORDERED: VANCOMYCIN 750 MG in IV NORMAL SALINE 250ML 250 ML IV SCH (08:00)
--- NOTE | 2021-01-13 08:25 | PDOC ---
[employer] PROGRESS NOTE Date of Service DOS: DATE: 01/13/21 TIME: 08:20 Chief Complaint Chief Complaint A/P: Acute encephalopathy - metabolic from sepsis, hyponatremia and toxic from cocaine Sepsis - with gram positive bacteremia and JAY pneumonia, likely gram positive given bacteremia but just as likely gram negative given possible aspiration and cocaine abuse CAP (community acquired pneumonia) - rocephin and azithromycin initial coverage. COVID [address] of the chest with contrast confirms multifocal pneumonia in JAY. Pulm consulted for bronchoscopy consideration Gram-positive bacteremia, 4/4 bottles present on admission - ID consulted, daptomycin ordered Right hand pain - wrist stiffness, possibly septic arthritis. Cocaine use - counseled on cessation Nonspecific ST-T wave electrocardiographic changes - consulted cardiology, will trend troponins. Given gram positive bacteremia 4/4 bottles positive will ask for echocardiogram to evaluated for possible valve vegetations Hyponatremia - likely hypovolemic, will trend, hydrate Weight loss - possibly related to cocaine, but left lung consolidation could be mass. Will get HIV testing consent Lactic acidosis - from sepsis, will monitor Abnormal LFTs - likely from hypotension and cocaine toxicity, will monitor Anemia - likely of chronic disease vs iron deficiency Severe protein calorie malnutrition - will have early erp manager intervention FEN - General diet PPX - lovenox FULL CODE Dispo - ICU CC time 48 minutes History of Present Illness History of Present Illness Ms Mccrary is a 60 yo F who takes no routine prescribed medications, presents the ED brought in by EMS with complaints of right hand pain after falling during the day on 01/09/2021. She was very confused and unclear about history but does note moving here from [place] at the end of 2019 and used cocaine "a few days ago". She notes weight loss, fever and chills and right hand pain and stiffness and is aware she is confused. Cannot give much more history, but notes she thinks she had a heart attack back in [place], but then says she didn't. She is a little short of breath and has a slight cough, notes she may have vomiting recently but thinks it may have been due to pain. WBC 24.3, Hb 11.1, platelets 503 INR 1.2 NA 125, K4.4, BUN 45, CR 1.1, glucose 104 bilirubin 2.1, AST 29, ALT 50, alk phos 1.3, albumin 1.3, NT proBNP 359 troponin 0 lactic acid 3 initially down to 1.5 UDS positive for cocaine and cannabinoids 0809 EKG sinus tachycardia 143 bpm, left axis deviation, normal intervals, J- point elevations in inferior lateral leads with hyperacute/peaked T waves, Q- wave lead III and aVF Chest radiograph with left upper lobe opacity Right hand radiograph without fracture CT head with no acute abnormality CT of the chest with contrast confirms multifocal left upper lobe pneumonia with hilar fullness and mediastinal lymphadenopathy. BP 90/50 after empiric antibiotics and fluids for sepsis, given rocephin and azithromycin. Admitted to ICU for further care. 01/11: Afebrile overnight. Transferred to [facility]. N.p.o. for possible bronchoscopy today.WBC 16.2, Hb 8.1, platelets 443, NA 135 albumin 0.9 CRP 199 and sed rate 125. To bronchoscopy with purulent secretions in left upper lobe no discrete mass found. BAL culture obtained. 01/12: T-max 100.1 F overnight. BP improved. K low Feeling little better appetite improved. Still with Right wrist pain swelling and stiffness Afebrile overnight. WBC down to 10.4, Hb 8.5 AST down to 41, albumin 1.1. Uric acid 1.5. Mg 1.4, K 3.5. Still with right wrist pain. Overall she feels a little better but still has a cough. Vitals/I&O Vitals/I&O: Vital Signs Date Time Temp Pulse Resp B/P (MAP) Pulse Ox O2 Delivery O2 Flow Rate FiO2 01/13/21 07:00 99.9 112 18 120/65 (83) 95 Room Air 99.9 I & O 01/12/21 01/12/21 01/13/21 15:00 23:00 07:00 Intake Total 600 ml 450 ml 120 ml Output Total 700 ml 550 ml 1450 ml Balance -100 ml -100 ml -1330 ml Physical Exam Physical Exam: GENERAL: Thin, cachectic, female lying in bed in no acute distress. HEENT: Normocephalic, atraumatic. Temporal wasting. No thrush. NECK: Supple, no JVD. LUNGS: Decreased breath sounds, mainly over the left lower lung. No wheezing. HEART: S1, S2. Could not appreciate any murmurs. ABDOMEN: Soft, scaphoid. Bowel sounds present, nontender. EXTREMITIES: No edema, no cyanosis. Wasting. DERMATOLOGIC: Warm, dry, no generalized rash. MUSCULOSKELETAL: Right hand, decreased range of motion, appears to have mild effusion at the wrist, unable to flex or extend due to pain. No warmth. NEUROLOGIC: Alert, oriented x 3, grossly nonfocal. Appears weak. Has generalized weakness. PSYCHIATRIC: Calm and cooperative. General: Alert, Cooperative, moderate distress Heart: Regular rate (SR/ST), Normal S1, Normal S2, No murmurs Lungs: Crackles Abdomen: Normal bowel sounds, Soft, No tenderness, No hepatosplenomegaly, No ma sses Extremities: No clubbing, No cyanosis, No edema, Normal pulses, No tenderness/swelling Skin: No rashes, No breakdown, No significant lesion Labs Labs: Laboratory Tests Test 01/12/21 22:00 01/13/21 06:55 Vancomycin Level Trough 9.4 mcg/mL (10.0-20.0) Vancomycin Last Dose Date Vancomycin Last Dose Time White Blood Count 10.4 x10^3/uL (4.0-11.0) Red Blood Count 2.87 x10^6/uL (3.50-5.40) Hemoglobin 8.5 g/dL (12.0-15.5) Hematocrit 24.6 % (36.0-47.0) Mean Corpuscular Volume 86 fL (79-100) Mean Corpuscular Hemoglobin 30 pg (25-35) Mean Corpuscular Hemoglobin Concent 35 g/dL (31-37) Red Cell Distribution Width 13.8 % (11.5-14.5) Platelet Count 484 x10^3/uL (140-400) Neutrophils (%) (Auto) 77 % (31-73) Lymphocytes (%) (Auto) 17 % (24-48) Monocytes (%) (Auto) 5 % (0-9) Eosinophils (%) (Auto) 0 % (0-3) Basophils (%) (Auto) 0 % (0-3) Neutrophils # (Auto) 8.1 x10^3/uL (1.8-7.7) Lymphocytes # (Auto) 1.8 x10^3/uL (1.0-4.8) Monocytes # (Auto) 0.5 x10^3/uL (0.0-1.1) Eosinophils # (Auto) 0.0 x10^3/uL (0.0-0.7) Basophils # (Auto) 0.0 x10^3/uL (0.0-0.2) Sodium Level 137 mmol/L (136-145) Potassium Level 3.5 mmol/L (3.5-5.1) Chloride Level 108 mmol/L (98-107) Carbon Dioxide Level 23 mmol/L (21-32) Anion Gap 6 (6-14) Blood Urea Nitrogen 8 mg/dL (7-20) Creatinine 0.6 mg/dL (0.6-1.0) Estimated GFR (Cockcroft-Gault) 123.8 BUN/Creatinine Ratio 13 (6-20) Glucose Level 94 mg/dL (70-99) Calcium Level 8.2 mg/dL (8.5-10.1) Total Bilirubin 0.5 mg/dL (0.2-1.0) Aspartate Amino Transf (AST/SGOT) 41 U/L (15-37) Alanine Aminotransferase (ALT/SGPT) 16 U/L (14-59) Alkaline Phosphatase 99 U/L (46-116) Total Protein 6.6 g/dL (6.4-8.2) Albumin 1.1 g/dL (3.4-5.0) Albumin/Globulin Ratio 0.2 (1.0-1.7) Assessment and Plan Assessmemt and Plan Problems Medical Problems: (1) CAP (community acquired pneumonia) Status: Acute (2) Cocaine use Status: Acute (3) Hyponatremia Status: Acute (4) Nonspecific ST-T wave electrocardiographic changes Status: Acute (5) Person under investigation for COVID-19 Status: Acute (6) Sepsis Status: Acute Comment Review of Relevant I have reviewed the following items terry (where applicable) has been applied. Medications: Current Medications Medications (Trade) Dose Ordered Sig/[place] Route PRN Reason Start Time Stop Time Status Last Admin Dose Admin Vancomycin HCl (Vancomycin Trough Level) 1 each 1X ONCE MC 01/12/21 22:30 01/12/21 22:32 DC 01/12/21 22:30 Potassium Chloride (Klor-Con) 40 meq 1X ONCE PO 01/12/21 11:30 01/12/21 11:31 DC 01/12/21 12:56 Justifications for Admission Other Justification THEA CHAN MD Jan 13, 2021 08:25
[2021-01-13] MEDS ORDERED: MAGNESIUM SULFATE 4GM 100 ML IV ONE (09:00)
[2021-01-13] MEDS ORDERED: POTASSIUM CHLORIDE 20 MEQ TABLET.ER. PO ONE (09:00)
[2021-01-13] MEDS: LACTOBACILLUS RHAMNOSUS GG 1 CAPSULE. PO SCH ×2 (09:24→21:03)
[2021-01-13] MEDS: ACETAMINOPHEN 325 MG TABLET. PO PRN ×2 (09:24→21:05)
[2021-01-13 10:13] LABS: % ATYL 1 % (0-0); % BANDS 20 % (0-9); % EOS 1 % (0-5); % LYMPHS 13 % (24-48); % METAS 2 % (0-0); % MONOS 7 % (0-10); % MYELOS 2 % (0-0); % SEGS 54 % (35-66); NUCLEATED RBC 1; PLT ESTIMATE INCREASED (ADEQUATE)
[2021-01-13 10:14] LABS: POLYCHROMASIA PRESENT
[2021-01-13 10:16] LABS: TARGET CELLS FEW
[2021-01-13 11:10] VITALS: BP 110/65
--- NOTE | 2021-01-13 11:53 | PDOC ---
Infectious Disease Note Subjective: Subjective Patient feels better Right wrist pain continues T Max 100.1 F Discussed with nursing staff Vital Signs: Vital Signs Vital Signs Date Time Temp Pulse Resp B/P (MAP) Pulse Ox O2 Delivery O2 Flow Rate FiO2 01/13/21 11:10 99.7 119 22 110/65 (80) 95 Room Air 99.7 Physical Exam: PHYSICAL EXAM GENERAL: Thin, cachectic, female lying in bed in no acute distress. HEENT: Normocephalic, atraumatic. Temporal wasting. No thrush. NECK: Supple, no JVD. LUNGS: Decreased breath sounds, mainly over the left lower lung. No wheezing. HEART: S1, S2. Could not appreciate any murmurs. ABDOMEN: Soft, scaphoid. Bowel sounds present, nontender. EXTREMITIES: No edema, no cyanosis. Wasting. DERMATOLOGIC: Warm, dry, no generalized rash. MUSCULOSKELETAL: Right hand, decreased range of motion, appears to have mild effusion at the wrist, unable to flex or extend due to pain. Slight warmth. NEUROLOGIC: Alert, oriented x 3, grossly nonfocal. Appears weak. Has generalized weakness. PSYCHIATRIC: Calm and cooperative. Medications: Inpatient Meds: Medications reviewed. Labs: Lab Laboratory Tests Test 01/12/21 22:00 01/13/21 06:55 Vancomycin Level Trough 9.4 mcg/mL (10.0-20.0) Vancomycin Last Dose Date Vancomycin Last Dose Time White Blood Count 10.4 x10^3/uL (4.0-11.0) Red Blood Count 2.87 x10^6/uL (3.50-5.40) Hemoglobin 8.5 g/dL (12.0-15.5) Hematocrit 24.6 % (36.0-47.0) Mean Corpuscular Volume 86 fL (79-100) Mean Corpuscular Hemoglobin 30 pg (25-35) Mean Corpuscular Hemoglobin Concent 35 g/dL (31-37) Red Cell Distribution Width 13.8 % (11.5-14.5) Platelet Count 484 x10^3/uL (140-400) Neutrophils (%) (Auto) 77 % (31-73) Lymphocytes (%) (Auto) 17 % (24-48) Monocytes (%) (Auto) 5 % (0-9) Eosinophils (%) (Auto) 0 % (0-3) Basophils (%) (Auto) 0 % (0-3) Neutrophils # (Auto) 8.1 x10^3/uL (1.8-7.7) Lymphocytes # (Auto) 1.8 x10^3/uL (1.0-4.8) Monocytes # (Auto) 0.5 x10^3/uL (0.0-1.1) Eosinophils # (Auto) 0.0 x10^3/uL (0.0-0.7) Basophils # (Auto) 0.0 x10^3/uL (0.0-0.2) Segmented Neutrophils % 54 % (35-66) Band Neutrophils % 20 % (0-9) Lymphocytes % 13 % (24-48) Atypical Lymphocytes % (Manual) 1 % (0-0) Monocytes % 7 % (0-10) Eosinophils % 1 % (0-5) Metamyelocytes % 2 % (0-0) Myelocytes % 2 % (0-0) Nucleated Red Blood Cells 1 Platelet Estimate Increased (ADEQUATE) Large Platelets Few Polychromasia Present Target Cells Few Sodium Level 137 mmol/L (136-145) Potassium Level 3.5 mmol/L (3.5-5.1) Chloride Level 108 mmol/L (98-107) Carbon Dioxide Level 23 mmol/L (21-32) Anion Gap 6 (6-14) Blood Urea Nitrogen 8 mg/dL (7-20) Creatinine 0.6 mg/dL (0.6-1.0) Estimated GFR (Cockcroft-Gault) 123.8 BUN/Creatinine Ratio 13 (6-20) Glucose Level 94 mg/dL (70-99) Calcium Level 8.2 mg/dL (8.5-10.1) Total Bilirubin 0.5 mg/dL (0.2-1.0) Aspartate Amino Transf (AST/SGOT) 41 U/L (15-37) Alanine Aminotransferase (ALT/SGPT) 16 U/L (14-59) Alkaline Phosphatase 99 U/L (46-116) Total Protein 6.6 g/dL (6.4-8.2) Albumin 1.1 g/dL (3.4-5.0) Albumin/Globulin Ratio 0.2 (1.0-1.7) Objective: Assessment: 1. Sepsis. 2. Strep pneumoniae bacteremia, 4/4 bottles present on admission. 3. Weight loss. 4. Extensive left lung mass. Status post bronchoscopy 5. Hyponatremia. 6. Leukocytosis and lactic acidosis. 7. Abnormal LFTs. 8. Cocaine and marijuana dependence. 9. Right wrist pain, concern for septic arthritis Plan: Plan of Care Continue ceftriaxone DC IV vancomycin Orthopedic evaluation for possible right septic joint still pending.... Monitor labs and cultures HIV pending Discussed with nursing staff PITER PERAZA MD Jan 13, 2021 11:52
--- NOTE | 2021-01-13 14:07 | PDOC ---
PULMONARY PROGRESS NOTES DATE: 01/13/21 TIME: 14:07 Subjective Pt. remains on NC oxygen No increased SOA or cough febrile overnight Vitals Vital Signs Date Time Temp Pulse Resp B/P (MAP) Pulse Ox O2 Delivery O2 Flow Rate FiO2 01/13/21 11:10 99.7 119 22 110/65 (80) 95 Room Air 99.7 ROS: No Nausea, No Chest Pain, No Abdominal Pain, No Increase Cough General: Alert Lungs: Crackles Cardiovascular: S1 Abdomen: Soft Neuro Exam: Alert Skin: Warm Labs Laboratory Tests Test 01/12/21 06:10 01/12/21 22:00 01/13/21 06:55 White Blood Count 12.3 x10^3/uL (4.0-11.0) 10.4 x10^3/uL (4.0-11.0) Red Blood Count 2.78 x10^6/uL (3.50-5.40) 2.87 x10^6/uL (3.50-5.40) Hemoglobin 8.0 g/dL (12.0-15.5) 8.5 g/dL (12.0-15.5) Hematocrit 24.1 % (36.0-47.0) 24.6 % (36.0-47.0) Mean Corpuscular Volume 87 fL (79-100) 86 fL (79-100) Mean Corpuscular Hemoglobin 29 pg (25-35) 30 pg (25-35) Mean Corpuscular Hemoglobin Concent 33 g/dL (31-37) 35 g/dL (31-37) Red Cell Distribution Width 14.0 % (11.5-14.5) 13.8 % (11.5-14.5) Platelet Count 440 x10^3/uL (140-400) 484 x10^3/uL (140-400) Neutrophils (%) (Auto) 84 % (31-73) 77 % (31-73) Lymphocytes (%) (Auto) 12 % (24-48) 17 % (24-48) Monocytes (%) (Auto) 3 % (0-9) 5 % (0-9) Eosinophils (%) (Auto) 0 % (0-3) 0 % (0-3) Basophils (%) (Auto) 0 % (0-3) 0 % (0-3) Neutrophils # (Auto) 10.4 x10^3/uL (1.8-7.7) 8.1 x10^3/uL (1.8-7.7) Lymphocytes # (Auto) 1.5 x10^3/uL (1.0-4.8) 1.8 x10^3/uL (1.0-4.8) Monocytes # (Auto) 0.4 x10^3/uL (0.0-1.1) 0.5 x10^3/uL (0.0-1.1) Eosinophils # (Auto) 0.0 x10^3/uL (0.0-0.7) 0.0 x10^3/uL (0.0-0.7) Basophils # (Auto) 0.0 x10^3/uL (0.0-0.2) 0.0 x10^3/uL (0.0-0.2) Sodium Level 136 mmol/L (136-145) 137 mmol/L (136-145) Potassium Level 3.2 mmol/L (3.5-5.1) 3.5 mmol/L (3.5-5.1) Chloride Level 106 mmol/L (98-107) 108 mmol/L (98-107) Carbon Dioxide Level 20 mmol/L (21-32) 23 mmol/L (21-32) Anion Gap 10 (6-14) 6 (6-14) Blood Urea Nitrogen 10 mg/dL (7-20) 8 mg/dL (7-20) Creatinine 0.5 mg/dL (0.6-1.0) 0.6 mg/dL (0.6-1.0) Estimated GFR (Cockcroft-Gault) 152.8 123.8 BUN/Creatinine Ratio 20 (6-20) 13 (6-20) Glucose Level 83 mg/dL (70-99) 94 mg/dL (70-99) Uric Acid 1.5 mg/dL (2.6-6.0) Calcium Level 8.3 mg/dL (8.5-10.1) 8.2 mg/dL (8.5-10.1) Magnesium Level 1.4 mg/dL (1.8-2.4) Total Bilirubin 0.7 mg/dL (0.2-1.0) 0.5 mg/dL (0.2-1.0) Aspartate Amino Transf (AST/SGOT) 54 U/L (15-37) 41 U/L (15-37) Alanine Aminotransferase (ALT/SGPT) 23 U/L (14-59) 16 U/L (14-59) Alkaline Phosphatase 112 U/L (46-116) 99 U/L (46-116) Total Protein 6.2 g/dL (6.4-8.2) 6.6 g/dL (6.4-8.2) Albumin 1.3 g/dL (3.4-5.0) 1.1 g/dL (3.4-5.0) Albumin/Globulin Ratio 0.3 (1.0-1.7) 0.2 (1.0-1.7) Vancomycin Level Trough 9.4 mcg/mL (10.0-20.0) Vancomycin Last Dose Date Vancomycin Last Dose Time Segmented Neutrophils % 54 % (35-66) Band Neutrophils % 20 % (0-9) Lymphocytes % 13 % (24-48) Atypical Lymphocytes % (Manual) 1 % (0-0) Monocytes % 7 % (0-10) Eosinophils % 1 % (0-5) Metamyelocytes % 2 % (0-0) Myelocytes % 2 % (0-0) Nucleated Red Blood Cells 1 Platelet Estimate Increased (ADEQUATE) Large Platelets Few Polychromasia Present Target Cells Few Laboratory Tests Test 01/12/21 22:00 01/13/21 06:55 Vancomycin Level Trough 9.4 mcg/mL (10.0-20.0) Vancomycin Last Dose Date Vancomycin Last Dose Time White Blood Count 10.4 x10^3/uL (4.0-11.0) Red Blood Count 2.87 x10^6/uL (3.50-5.40) Hemoglobin 8.5 g/dL (12.0-15.5) Hematocrit 24.6 % (36.0-47.0) Mean Corpuscular Volume 86 fL (79-100) Mean Corpuscular Hemoglobin 30 pg (25-35) Mean Corpuscular Hemoglobin Concent 35 g/dL (31-37) Red Cell Distribution Width 13.8 % (11.5-14.5) Platelet Count 484 x10^3/uL (140-400) Neutrophils (%) (Auto) 77 % (31-73) Lymphocytes (%) (Auto) 17 % (24-48) Monocytes (%) (Auto) 5 % (0-9) Eosinophils (%) (Auto) 0 % (0-3) Basophils (%) (Auto) 0 % (0-3) Neutrophils # (Auto) 8.1 x10^3/uL (1.8-7.7) Lymphocytes # (Auto) 1.8 x10^3/uL (1.0-4.8) Monocytes # (Auto) 0.5 x10^3/uL (0.0-1.1) Eosinophils # (Auto) 0.0 x10^3/uL (0.0-0.7) Basophils # (Auto) 0.0 x10^3/uL (0.0-0.2) Segmented Neutrophils % 54 % (35-66) Band Neutrophils % 20 % (0-9) Lymphocytes % 13 % (24-48) Atypical Lymphocytes % (Manual) 1 % (0-0) Monocytes % 7 % (0-10) Eosinophils % 1 % (0-5) Metamyelocytes % 2 % (0-0) Myelocytes % 2 % (0-0) Nucleated Red Blood Cells 1 Platelet Estimate Increased (ADEQUATE) Large Platelets Few Polychromasia Present Target Cells Few Sodium Level 137 mmol/L (136-145) Potassium Level 3.5 mmol/L (3.5-5.1) Chloride Level 108 mmol/L (98-107) Carbon Dioxide Level 23 mmol/L (21-32) Anion Gap 6 (6-14) Blood Urea Nitrogen 8 mg/dL (7-20) Creatinine 0.6 mg/dL (0.6-1.0) Estimated GFR (Cockcroft-Gault) 123.8 BUN/Creatinine Ratio 13 (6-20) Glucose Level 94 mg/dL (70-99) Calcium Level 8.2 mg/dL (8.5-10.1) Total Bilirubin 0.5 mg/dL (0.2-1.0) Aspartate Amino Transf (AST/SGOT) 41 U/L (15-37) Alanine Aminotransferase (ALT/SGPT) 16 U/L (14-59) Alkaline Phosphatase 99 U/L (46-116) Total Protein 6.6 g/dL (6.4-8.2) Albumin 1.1 g/dL (3.4-5.0) Albumin/Globulin Ratio 0.2 (1.0-1.7) Medications Active Scripts Medications Dose Route/Sig Max Daily Dose Days Date Category No Known Medications Prior To Admisstion (Info) Each 1 Each MC PRN PRN 01/10/21 Reported Impression . IMPRESSION: 1. Left upper lobe suspect postobstructive pneumonia S/P bronchoscopy 2. Tobacco dependent. 3. Positive for cocaine and cannabinoids. 4. Leukocytosis--improved 5. Bacteremia 4/4 bottles. 6. Abnormal LFTs. Plan . Updated 01/12/21 Continue supplemental oxygen to keep sats above 92%, now on [place] NEBS S/P bronchoscopy 01/11/21--negative for endobronchial lesion, BAL negative Follow ID recs for ABX, Follow cultures Follow ortho recs-- concern for septic arthritis Follow Cardiology recs DVT/GI PPX D/W RN Updated 01/11/21 Continue supplemental oxygen to keep sats above 92%, now on [place] NEBS S/P bronchoscopy 01/11/21--see report Follow ID recs for ABX, Follow cultures Follow ortho recs-- concern for septic arthritis Follow Cardiology recs DVT/GI PPX D/W RN PLAN: 01/10/21 1. The patient has been seen by Infectious Disease Service, will continue daptomycin and Zosyn. 2. Repeat blood cultures. 3. We will proceed with bronchoscopy to rule out postobstructive process. GUANACO PHAM MD Jan 13, 2021 14:07
[2021-01-13 15:06] VITALS: BP 138/72
[2021-01-13] MEDS: cefTRIAXone IV Push 2 GM VIAL. IVP SCH (15:30)
[2021-01-13] MEDS ORDERED: LIDOCAINE 1% PF 2 ML VIAL. INJ ONE (16:00)
[2021-01-13] MEDS ORDERED: LIDOCAINE WITH 8.4% SOD BICARB 3 ML DISP.SYRIN. INJ ONE (16:15)
--- NOTE | 2021-01-13 16:23 | RAD ---
Exam performed: Limited ultrasound of the right wrist HISTORY: Right wrist pain and swelling, suspected septic arthritis. Evaluation for possible cyst aspi ration. DATE OF SERVICE: 01/13/2021. COMPARISON: X-ray right wrist from 01/10/2021. Findings and impression: Targeted sonographic evaluation of the right wrist is performed in the area of swelling to evaluate p otential joint effusion/periarticular fluid for arthrocentesis. There is diffuse soft tissue swelling around the wrist joint. No abnormal fluid collection is seen. Arthrocentesis was not performed. Electronically signed by: Carito Rogers MD (01/13/2021 4:21 PM) [id number]
--- NOTE | 2021-01-13 16:28 | PDOC2 ---
CONSULT Date of Consult Date of Consult DATE: 01/13/21 TIME: 16:23 Reason for Consult Reason for Consult: Rule out right wrist septic arthritis Identification/Chief Complaint Chief Complaint Right wrist pain History of Present Illness Reason for Visit: Is a 60-year-old female who presented to the emergency department on 01/09/2021 with right wrist pain. She was admitted for sepsis and IV antibiotics were started. Her condition has improved but she continued to report right wrist pain. There is concern for possible septic arthritis. Orthopedics was consulted. She reports pain at the dorsal aspect of the wrist. She reports difficulty with range of motion. She denies numbness or tingling distally in the wrist. She denies any specific trauma or injury associated with onset of her symptoms. She reports that her wrist is warm and swollen. She denies history of previous symptoms. Past Medical History Cardiovascular: No pertinent hx Pulmonary: Bronchitis Psych: Addictions (Cocaine) Past Surgical History Past Surgical History: No pertinent history Family History Family History: Family History Unknown Social History Quit (June 2020) ALCOHOL: none Drugs: Cocaine, Marijuana Current Problem List Problem List Problems Medical Problems: (1) CAP (community acquired pneumonia) Status: Acute (2) Cocaine use Status: Acute (3) Hyponatremia Status: Acute (4) Nonspecific ST-T wave electrocardiographic changes Status: Acute (5) Person under investigation for COVID-19 Status: Acute (6) Sepsis Status: Acute Current Medications Current Medications Current Medications Sodium Chloride 1,000 ml @ 1,000 mls/hr 1X ONCE IV Last administered on 01/09/21at 21:31; Start 01/09/21 at 20:30; Stop 01/09/21 at 21:29; Status DC Lorazepam (Ativan Inj) 1 mg 1X ONCE IVP Last administered on 01/09/21at 21:31; Start 01/09/21 at 20:30; Stop 01/09/21 at 20:55; Status DC Ceftriaxone Sodium (Rocephin) 1 gm 1X ONCE IVP Last administered on 01/09/21at 21:32; Start 01/09/21 at 21:30; Stop 01/09/21 at 21:31; Status DC Azithromycin 250 ml @ 250 mls/hr 1X ONCE IV Last administered on 01/09/21at 21:32; Start 01/09/21 at 21:30; Stop 01/09/21 at 22:29; Status DC Iohexol (Omnipaque 300 Mg/ml) 75 ml 1X ONCE IV Last administered on 01/09/21at 22:05; Start 01/09/21 at 22:00; Stop 01/09/21 at 22:01; Status DC Info (CONTRAST GIVEN -- Rx MONITORING) 1 each PRN DAILY PRN MC SEE COMMENTS; Start 01/09/21 at 22:00; Stop 01/11/21 at 21:59; Status DC Sodium Chloride 1,000 ml @ 150 mls/hr Q6H40M IV Last administered on 01/11/21at 05:43; Start 01/10/21 at 01:00; Stop 01/11/21 at 11:13; Status DC Sodium Chloride 1,000 ml @ 1,000 mls/hr 1X ONCE IV Last administered on 01/10/21at 01:07; Start 01/10/21 at 01:00; Stop 01/10/21 at 01:59; Status DC Piperacillin Sod/ Tazobactam Sod 3.375 gm/Sodium Chloride 50 ml @ 100 mls/hr Q6HRS IV Last administered on 01/11/21at 05:39; Start 01/10/21 at 12:00; Stop 01/11/21 at 11:11; Status DC Daptomycin 280 mg/ Sodium Chloride 50 ml @ 100 mls/hr Q24H IV Last administered on 01/10/21at 11:20; Start 01/10/21 at 11:00; Stop 01/11/21 at 11:10; Status DC Doxycycline Hyclate (Vibra-Tab) 100 mg BID PO Last administered on 01/12/21at 09:32; Start 01/10/21 at 10:00; Stop 01/12/21 at 09:44; Status DC Olanzapine (ZyPREXA ZYDIS) 5 mg PRN BID PRN PO ANXIETY / AGITATION Last administered on 01/12/21at 09:32; Start 01/10/21 at 18:00 Heparin Sodium (Porcine) (Heparin Sodium) 5,000 unit Q8HRS SQ Last administered on 01/13/21at 06:17; Start 01/10/21 at 22:00 Ondansetron HCl (Zofran) 4 mg PRN Q4HRS PRN IVP NAUSEA/VOMITING; Start 01/10/21 at 18:00 Acetaminophen (Tylenol) 650 mg PRN Q6HRS PRN PO MILD PAIN / TEMP > 100.3'F Last administered on 01/13/21at 09:24; Start 01/10/21 at 18:00 Fentanyl Citrate (Fentanyl 2ml Vial) 25 mcg PRN Q3HRS PRN IVP SEVERE PAIN 7-10; Start 01/10/21 at 18:00 Lorazepam (Ativan Inj) 1 mg PRN Q4HRS PRN IVP ANXIETY / AGITATION; Start 01/10/21 at 18:00 Albumin Human 500 ml @ 125 mls/hr 1X ONCE IV Last administered on 01/11/21at 08:10; Start 01/11/21 at 08:00; Stop 01/11/21 at 11:59; Status DC Lactobacillus Rhamnosus (Culturelle) 1 cap BID PO Last administered on 01/13/21at 09:24; Start 01/11/21 at 21:00 Albuterol Sulfate (Ventolin Neb Soln) 2.5 mg PRN 1X PRN NEB SHORTNESS OF BREATH Last administered on 01/11/21at 10:43; Start 01/11/21 at 10:30; Stop 01/12/21 at 10:29; Status DC Sodium Chloride (Normal Saline Flush) 3 ml QSHIFT PRN IV AFTER MEDS AND BLOOD DRAWS; Start 01/11/21 at 10:30 Lidocaine HCl (Lidocaine 2% Viscous) 1 ml PRN 1X PRN MM FOR PROCEDURE; Start 01/11/21 at 10:30; Stop 01/12/21 at 10:29; Status DC Lidocaine HCl (Lidocaine 1% 20ml Vial) 20 ml PRN 1X PRN INJ SEE COMMENTS; Start 01/11/21 at 10:30; Stop 01/11/21 at 10:37; Status DC Epinephrine HCl (Adrenalin) 1 mg PRN 1X PRN INJ SEE COMMENTS; Start 01/11/21 at 10:30; Stop 01/12/21 at 10:29; Status DC Lidocaine HCl (Lidocaine 4% Topical) 50 ml PRN 1X PRN MM SEE COMMENTS; Start 01/11/21 at 10:30; Stop 01/12/21 at 10:29; Status DC Ringer's Solution 1,000 ml @ 75 mls/hr [id number] IV Last administered on 01/11/21at 22:58; Start 01/11/21 at 11:00; Stop 01/12/21 at 15:08; Status DC Ceftriaxone Sodium (Rocephin) 2 gm Q24H IVP Last administered on 01/13/21at 15:30; Start 01/11/21 at 12:00 Vancomycin HCl (Vanco Per Pharmacy) 1 each PRN DAILY PRN MC SEE COMMENTS Last administered on 01/13/21at 07:31; Start 01/11/21 at 11:15; Stop 01/13/21 at 1 1:55; Status DC Vancomycin HCl 1.25 gm/Sodium Chloride 250 ml @ 166.667 mls/hr 1X ONCE IV Last administered on 01/11/21at 12:04; Start 01/11/21 at 12:00; Stop 01/11/21 at 13:29; Status DC Piperacillin Sod/ Tazobactam Sod 3.375 gm/Sodium Chloride 50 ml @ 100 mls/hr Q6HRS IV ; Start 01/11/21 at 18:00; Status Cancel Vancomycin HCl 750 mg/Sodium Chloride 250 ml @ 250 mls/hr Q12H IV Last administered on 01/12/21at 22:58; Start 01/11/21 at 23:00; Stop 01/13/21 at 07:22; Status DC Vancomycin HCl (Vancomycin Trough Level) 1 each 1X ONCE MC Last administered on 01/12/21at 22:30; Start 01/12/21 at 22:30; Stop 01/12/21 at 22:32; Status DC Lidocaine HCl (Lidocaine 1% 20ml Vial) 20 ml STK-MED ONCE .ROUTE ; Start 01/11/21 at 10:32; Stop 01/11/21 at 16:07; Status DC Lidocaine HCl (Lidocaine 2% Viscous) 100 ml STK-MED ONCE .ROUTE ; Start 01/11/21 at 10:32; Stop 01/11/21 at 16:07; Status DC Lidocaine HCl (Lidocaine 4% Topical) 50 ml STK-MED ONCE .ROUTE ; Start 01/11/21 at 10:32; Stop 01/11/21 at 16:07; Status DC Epinephrine HCl (Adrenalin) 1 mg STK-MED ONCE .ROUTE ; Start 01/11/21 at 10:32; Stop 01/11/21 at 16:07; Status DC Albuterol Sulfate (Ventolin Neb Soln) 2.5 mg STK-MED ONCE .ROUTE ; Start 01/11/21 at 10:32; Stop 01/11/21 at 16:07; Status DC Propofol (Diprivan) 200 mg STK-MED ONCE IV ; Start 01/11/21 at 10:45; Stop 01/11/21 at 16:07; Status DC Lidocaine HCl (Lidocaine Pf 2% Vial) 5 ml STK-MED ONCE .ROUTE ; Start 01/11/21 at 10:45; Stop 01/11/21 at 16:07; Status DC Potassium Chloride (Klor-Con) 40 meq 1X ONCE PO Last administered on 01/12/21at 12:56; Start 01/12/21 at 11:30; Stop 01/12/21 at 11:31; Status DC Vancomycin HCl 750 mg/Sodium Chloride 250 ml @ 250 mls/hr Q8H IV Last administered on 01/13/21at 09:27; Start 01/13/21 at 08:00; Stop 01/13/21 at 11 :53; Status DC Magnesium Sulfate 100 ml @ 25 mls/hr 1X ONCE IV Last administered on 01/13/21at 10:51; Start 01/13/21 at 09:00; Stop 01/13/21 at 12:59; Status DC Potassium Chloride (Klor-Con) 40 meq 1X ONCE PO Last administered on 01/13/21at 09:24; Start 01/13/21 at 09:00; Stop 01/13/21 at 09:01; Status DC Lidocaine HCl (Xylocaine-Mpf 1% 2ml Vial) 2 ml 1X ONCE INJ ; Start 01/13/21 at 16:00; Stop 01/13/21 at 16:01; Status DC Lidocaine HCl (Buffered Lidocaine 1%) 3 ml 1X ONCE INJ ; Start 01/13/21 at 1 6:15; Stop 01/13/21 at 16:16; Status DC Active Scripts Active Reported No Known Medications Prior To Admisstion (Info) Each 1 Each MC PRN PRN Allergies Allergies: Coded Allergies: No Known Drug Allergies (Unverified , 01/11/21) ROS Review of System Negative except as above Physical Exam Physical Exam Right upper extremity: Distal neurovascular examination intact with 2+ radial pulse. Capillary refill less than 2 seconds to the tips of all digits. Moves all digits to command. Significant pain with active range of motion at the wrist. Active extension to 10 degrees with flexion to 10 degrees. Wrist is warm to touch. Soft tissue swelling present dorsally. Left upper extremity. Distal neurovascular examination intact with 2+ radial pulse. Sensation intact light touch about the left hand. Moves all digits to command. General: Alert, Oriented X3 Vitals VITALS Vital Signs Date Time Temp Pulse Resp B/P (MAP) Pulse Ox O2 Delivery O2 Flow Rate FiO2 01/13/21 15:06 97.7 109 20 138/72 (94) 95 Room Air 97.7 Labs Labs Laboratory Tests Test 01/12/21 06:10 01/12/21 22:00 01/13/21 06:55 White Blood Count 12.3 x10^3/uL (4.0-11.0) 10.4 x10^3/uL (4.0-11.0) Red Blood Count 2.78 x10^6/uL (3.50-5.40) 2.87 x10^6/uL (3.50-5.40) Hemoglobin 8.0 g/dL (12.0-15.5) 8.5 g/dL (12.0-15.5) Hematocrit 24.1 % (36.0-47.0) 24.6 % (36.0-47.0) Mean Corpuscular Volume 87 fL (79-100) 86 fL (79-100) Mean Corpuscular Hemoglobin 29 pg (25-35) 30 pg (25-35) Mean Corpuscular Hemoglobin Concent 33 g/dL (31-37) 35 g/dL (31-37) Red Cell Distribution Width 14.0 % (11.5-14.5) 13.8 % (11.5-14.5) Platelet Count 440 x10^3/uL (140-400) 484 x10^3/uL (140-400) Neutrophils (%) (Auto) 84 % (31-73) 77 % (31-73) Lymphocytes (%) (Auto) 12 % (24-48) 17 % (24-48) Monocytes (%) (Auto) 3 % (0-9) 5 % (0-9) Eosinophils (%) (Auto) 0 % (0-3) 0 % (0-3) Basophils (%) (Auto) 0 % (0-3) 0 % (0-3) Neutrophils # (Auto) 10.4 x10^3/uL (1.8-7.7) 8.1 x10^3/uL (1.8-7.7) Lymphocytes # (Auto) 1.5 x10^3/uL (1.0-4.8) 1.8 x10^3/uL (1.0-4.8) Monocytes # (Auto) 0.4 x10^3/uL (0.0-1.1) 0.5 x10^3/uL (0.0-1.1) Eosinophils # (Auto) 0.0 x10^3/uL (0.0-0.7) 0.0 x10^3/uL (0.0-0.7) Basophils # (Auto) 0.0 x10^3/uL (0.0-0.2) 0.0 x10^3/uL (0.0-0.2) Sodium Level 136 mmol/L (136-145) 137 mmol/L (136-145) Potassium Level 3.2 mmol/L (3.5-5.1) 3.5 mmol/L (3.5-5.1) Chloride Level 106 mmol/L (98-107) 108 mmol/L (98-107) Carbon Dioxide Level 20 mmol/L (21-32) 23 mmol/L (21-32) Anion Gap 10 (6-14) 6 (6-14) Blood Urea Nitrogen 10 mg/dL (7-20) 8 mg/dL (7-20) Creatinine 0.5 mg/dL (0.6-1.0) 0.6 mg/dL (0.6-1.0) Estimated GFR (Cockcroft-Gault) 152.8 123.8 BUN/Creatinine Ratio 20 (6-20) 13 (6-20) Glucose Level 83 mg/dL (70-99) 94 mg/dL (70-99) Uric Acid 1.5 mg/dL (2.6-6.0) Calcium Level 8.3 mg/dL (8.5-10.1) 8.2 mg/dL (8.5-10.1) Magnesium Level 1.4 mg/dL (1.8-2.4) Total Bilirubin 0.7 mg/dL (0.2-1.0) 0.5 mg/dL (0.2-1.0) Aspartate Amino Transf (AST/SGOT) 54 U/L (15-37) 41 U/L (15-37) Alanine Aminotransferase (ALT/SGPT) 23 U/L (14-59) 16 U/L (14-59) Alkaline Phosphatase 112 U/L (46-116) 99 U/L (46-116) Total Protein 6.2 g/dL (6.4-8.2) 6.6 g/dL (6.4-8.2) Albumin 1.3 g/dL (3.4-5.0) 1.1 g/dL (3.4-5.0) Albumin/Globulin Ratio 0.3 (1.0-1.7) 0.2 (1.0-1.7) Vancomycin Level Trough 9.4 mcg/mL (10.0-20.0) Vancomycin Last Dose Date Vancomycin Last Dose Time Segmented Neutrophils % 54 % (35-66) Band Neutrophils % 20 % (0-9) Lymphocytes % 13 % (24-48) Atypical Lymphocytes % (Manual) 1 % (0-0) Monocytes % 7 % (0-10) Eosinophils % 1 % (0-5) Metamyelocytes % 2 % (0-0) Myelocytes % 2 % (0-0) Nucleated Red Blood Cells 1 Platelet Estimate Increased (ADEQUATE) Large Platelets Few Polychromasia Present Target Cells Few Laboratory Tests Test 01/12/21 22:00 01/13/21 06:55 Vancomycin Level Trough 9.4 mcg/mL (10.0-20.0) Vancomycin Last Dose Date Vancomycin Last Dose Time White Blood Count 10.4 x10^3/uL (4.0-11.0) Red Blood Count 2.87 x10^6/uL (3.50-5.40) Hemoglobin 8.5 g/dL (12.0-15.5) Hematocrit 24.6 % (36.0-47.0) Mean Corpuscular Volume 86 fL (79-100) Mean Corpuscular Hemoglobin 30 pg (25-35) Mean Corpuscular Hemoglobin Concent 35 g/dL (31-37) Red Cell Distribution Width 13.8 % (11.5-14.5) Platelet Count 484 x10^3/uL (140-400) Neutrophils (%) (Auto) 77 % (31-73) Lymphocytes (%) (Auto) 17 % (24-48) Monocytes (%) (Auto) 5 % (0-9) Eosinophils (%) (Auto) 0 % (0-3) Basophils (%) (Auto) 0 % (0-3) Neutrophils # (Auto) 8.1 x10^3/uL (1.8-7.7) Lymphocytes # (Auto) 1.8 x10^3/uL (1.0-4.8) Monocytes # (Auto) 0.5 x10^3/uL (0.0-1.1) Eosinophils # (Auto) 0.0 x10^3/uL (0.0-0.7) Basophils # (Auto) 0.0 x10^3/uL (0.0-0.2) Segmented Neutrophils % 54 % (35-66) Band Neutrophils % 20 % (0-9) Lymphocytes % 13 % (24-48) Atypical Lymphocytes % (Manual) 1 % (0-0) Monocytes % 7 % (0-10) Eosinophils % 1 % (0-5) Metamyelocytes % 2 % (0-0) Myelocytes % 2 % (0-0) Nucleated Red Blood Cells 1 Platelet Estimate Increased (ADEQUATE) Large Platelets Few Polychromasia Present Target Cells Few Sodium Level 137 mmol/L (136-145) Potassium Level 3.5 mmol/L (3.5-5.1) Chloride Level 108 mmol/L (98-107) Carbon Dioxide Level 23 mmol/L (21-32) Anion Gap 6 (6-14) Blood Urea Nitrogen 8 mg/dL (7-20) Creatinine 0.6 mg/dL (0.6-1.0) Estimated GFR (Cockcroft-Gault) 123.8 BUN/Creatinine Ratio 13 (6-20) Glucose Level 94 mg/dL (70-99) Calcium Level 8.2 mg/dL (8.5-10.1) Total Bilirubin 0.5 mg/dL (0.2-1.0) Aspartate Amino Transf (AST/SGOT) 41 U/L (15-37) Alanine Aminotransferase (ALT/SGPT) 16 U/L (14-59) Alkaline Phosphatase 99 U/L (46-116) Total Protein 6.6 g/dL (6.4-8.2) Albumin 1.1 g/dL (3.4-5.0) Albumin/Globulin Ratio 0.2 (1.0-1.7) Images Images Radiographs negative for acute fracture dislocation. Ultrasound of the wrist obtained which is negative for joint effusion. Assessment/Plan Assessment/Plan 60-year-old female with sepsis and right wrist pain. Ultrasound obtained which was negative for wrist effusion. Risk and benefits of joint aspiration were discussed. Informed consent was obtained. Decision made to proceed with right wrist arthrocentesis. The skin was cleansed. 2 cc 1% lidocaine without epinephrine were injected. Once adequate anesthesia was achieved an 18-gauge needle was inserted in the radiocarpal joint. No significant joint fluid was able be aspirated. Lack of fluid on ultrasound and arthrocentesis suggest low likelihood of septic arthritis. Will obtain MRI tomorrow to evaluate the joint and soft tissues. Continue antibiotics per primary and infectious disease recommendations. Weightbearing as tolerated with right upper extremity. Continue icing and elevation. Will reevaluate in a.m. DONY BYERS MD Jan 13, 2021 16:28
[2021-01-13 19:33] VITALS: BP 140/67
[2021-01-13 22:36] VITALS: BP 112/70
[2021-01-14 02:50] VITALS: BP 108/61
[2021-01-14] MEDS: HEPARIN for SUB-Q USE 5,000 UNIT/ML VIAL. SQ SCH ×3 (06:02→21:09)
--- NOTE | 2021-01-14 06:21 | PDOC ---
PROGRESS NOTES Date of Service DATE: 01/14/21 TIME: 06:18 Subjective Subjective No acute events overnight. Continued pain at the wrist and dorsal aspect of the hand. Continued difficulty with range of motion. Objective Vital Signs Vital Signs Date Time Temp Pulse Resp B/P (MAP) Pulse Ox O2 Delivery O2 Flow Rate FiO2 01/14/21 02:50 98.5 106 16 108/61 (77) 96 Room Air 98.5 01/11/21 11:41 3 Physical Exam Afebrile, vital signs stable, no acute distress. Right upper extremity: Distal neurovascular examination intact with 2+ radial pulse. Capillary refill less than 2 seconds to the tips of all digits. Moves all digits to command. Significant pain with active range of motion at the wrist. Active extension to 10 degrees with flexion to 10 degrees. Wrist is warm to touch. Soft tissue swelling present dorsally. Labs Laboratory Tests Test 01/12/21 22:00 01/13/21 06:55 Vancomycin Level Trough 9.4 mcg/mL (10.0-20.0) Vancomycin Last Dose Date Vancomycin Last Dose Time White Blood Count 10.4 x10^3/uL (4.0-11.0) Red Blood Count 2.87 x10^6/uL (3.50-5.40) Hemoglobin 8.5 g/dL (12.0-15.5) Hematocrit 24.6 % (36.0-47.0) Mean Corpuscular Volume 86 fL (79-100) Mean Corpuscular Hemoglobin 30 pg (25-35) Mean Corpuscular Hemoglobin Concent 35 g/dL (31-37) Red Cell Distribution Width 13.8 % (11.5-14.5) Platelet Count 484 x10^3/uL (140-400) Neutrophils (%) (Auto) 77 % (31-73) Lymphocytes (%) (Auto) 17 % (24-48) Monocytes (%) (Auto) 5 % (0-9) Eosinophils (%) (Auto) 0 % (0-3) Basophils (%) (Auto) 0 % (0-3) Neutrophils # (Auto) 8.1 x10^3/uL (1.8-7.7) Lymphocytes # (Auto) 1.8 x10^3/uL (1.0-4.8) Monocytes # (Auto) 0.5 x10^3/uL (0.0-1.1) Eosinophils # (Auto) 0.0 x10^3/uL (0.0-0.7) Basophils # (Auto) 0.0 x10^3/uL (0.0-0.2) Segmented Neutrophils % 54 % (35-66) Band Neutrophils % 20 % (0-9) Lymphocytes % 13 % (24-48) Atypical Lymphocytes % (Manual) 1 % (0-0) Monocytes % 7 % (0-10) Eosinophils % 1 % (0-5) Metamyelocytes % 2 % (0-0) Myelocytes % 2 % (0-0) Nucleated Red Blood Cells 1 Platelet Estimate Increased (ADEQUATE) Large Platelets Few Polychromasia Present Target Cells Few Sodium Level 137 mmol/L (136-145) Potassium Level 3.5 mmol/L (3.5-5.1) Chloride Level 108 mmol/L (98-107) Carbon Dioxide Level 23 mmol/L (21-32) Anion Gap 6 (6-14) Blood Urea Nitrogen 8 mg/dL (7-20) Creatinine 0.6 mg/dL (0.6-1.0) Estimated GFR (Cockcroft-Gault) 123.8 BUN/Creatinine Ratio 13 (6-20) Glucose Level 94 mg/dL (70-99) Calcium Level 8.2 mg/dL (8.5-10.1) Total Bilirubin 0.5 mg/dL (0.2-1.0) Aspartate Amino Transf (AST/SGOT) 41 U/L (15-37) Alanine Aminotransferase (ALT/SGPT) 16 U/L (14-59) Alkaline Phosphatase 99 U/L (46-116) Total Protein 6.6 g/dL (6.4-8.2) Albumin 1.1 g/dL (3.4-5.0) Albumin/Globulin Ratio 0.2 (1.0-1.7) Laboratory Tests Test 01/13/21 06:55 White Blood Count 10.4 x10^3/uL (4.0-11.0) Red Blood Count 2.87 x10^6/uL (3.50-5.40) Hemoglobin 8.5 g/dL (12.0-15.5) Hematocrit 24.6 % (36.0-47.0) Mean Corpuscular Volume 86 fL (79-100) Mean Corpuscular Hemoglobin 30 pg (25-35) Mean Corpuscular Hemoglobin Concent 35 g/dL (31-37) Red Cell Distribution Width 13.8 % (11.5-14.5) Platelet Count 484 x10^3/uL (140-400) Neutrophils (%) (Auto) 77 % (31-73) Lymphocytes (%) (Auto) 17 % (24-48) Monocytes (%) (Auto) 5 % (0-9) Eosinophils (%) (Auto) 0 % (0-3) Basophils (%) (Auto) 0 % (0-3) Neutrophils # (Auto) 8.1 x10^3/uL (1.8-7.7) Lymphocytes # (Auto) 1.8 x10^3/uL (1.0-4.8) Monocytes # (Auto) 0.5 x10^3/uL (0.0-1.1) Eosinophils # (Auto) 0.0 x10^3/uL (0.0-0.7) Basophils # (Auto) 0.0 x10^3/uL (0.0-0.2) Segmented Neutrophils % 54 % (35-66) Band Neutrophils % 20 % (0-9) Lymphocytes % 13 % (24-48) Atypical Lymphocytes % (Manual) 1 % (0-0) Monocytes % 7 % (0-10) Eosinophils % 1 % (0-5) Metamyelocytes % 2 % (0-0) Myelocytes % 2 % (0-0) Nucleated Red Blood Cells 1 Platelet Estimate Increased (ADEQUATE) Large Platelets Few Polychromasia Present Target Cells Few Sodium Level 137 mmol/L (136-145) Potassium Level 3.5 mmol/L (3.5-5.1) Chloride Level 108 mmol/L (98-107) Carbon Dioxide Level 23 mmol/L (21-32) Anion Gap 6 (6-14) Blood Urea Nitrogen 8 mg/dL (7-20) Creatinine 0.6 mg/dL (0.6-1.0) Estimated GFR (Cockcroft-Gault) 123.8 BUN/Creatinine Ratio 13 (6-20) Glucose Level 94 mg/dL (70-99) Calcium Level 8.2 mg/dL (8.5-10.1) Total Bilirubin 0.5 mg/dL (0.2-1.0) Aspartate Amino Transf (AST/SGOT) 41 U/L (15-37) Alanine Aminotransferase (ALT/SGPT) 16 U/L (14-59) Alkaline Phosphatase 99 U/L (46-116) Total Protein 6.6 g/dL (6.4-8.2) Albumin 1.1 g/dL (3.4-5.0) Albumin/Globulin Ratio 0.2 (1.0-1.7) Imaging Ultrasound negative for joint effusion Assessment Assessment 60-year-old female with right wrist cellulitis Plan Plan of Care Stat ultrasound yesterday negative for joint effusion. Attempted aspiration performed at bedside with no fluid obtained. Will obtain MRI of the wrist today to evaluate for joint effusion, cellulitis, and/or drainable abscess. Continue antibiotics per infectious disease recommendations. Justicifation of Admission Dx: Justifications for Admission: Justification of Admission Dx: Yes DONY BYERS MD Jan 14, 2021 06:21
[2021-01-14 07:00] VITALS: BP 119/60
[2021-01-14] MEDS: LACTOBACILLUS RHAMNOSUS GG 1 CAPSULE. PO SCH ×2 (08:13→21:07)
--- NOTE | 2021-01-14 08:33 | PDOC ---
Infectious Disease Note Subjective Subjective Patient feels better Right wrist pain continues Discussed with nursing staff ROS ROS no n/v/d/sob Vital Sign Vital Signs Vital Signs Date Time Temp Pulse Resp B/P (MAP) Pulse Ox O2 Delivery O2 Flow Rate FiO2 01/14/21 08:00 Room Air 01/14/21 07:00 98.9 119 20 119/60 (79) 94 98.9 Physical Exam PHYSICAL EXAM GENERAL: Thin, cachectic, female lying in bed in no acute distress. HEENT: Normocephalic, atraumatic. Temporal wasting. No thrush. NECK: Supple, no JVD. LUNGS: Decreased breath sounds, mainly over the left lower lung. No wheezing. HEART: S1, S2. Could not appreciate any murmurs. ABDOMEN: Soft, scaphoid. Bowel sounds present, nontender. EXTREMITIES: No edema, no cyanosis. Wasting. DERMATOLOGIC: Warm, dry, no generalized rash. MUSCULOSKELETAL: Right hand, decreased range of motion, appears to have mild effusion at the wrist, unable to flex or extend due to pain. Slight warmth. NEUROLOGIC: Alert, oriented x 3, grossly nonfocal. Appears weak. Has generalized weakness. PSYCHIATRIC: Calm and cooperative. Labs Micro Microbiology 01/11/21 - Final, Complete 01/11/21 Blood Culture - Preliminary, Resulted NO GROWTH AFTER 3 DAYS 01/09/21 Urine Culture - Final, Complete Objective Assessment 1. Sepsis. 2. Strep pneumoniae bacteremia, 4/4 bottles present on admission. 3. Weight loss. 4. Extensive left lung mass. Status post bronchoscopy 5. Hyponatremia. 6. Leukocytosis and lactic acidosis. 7. Abnormal LFTs. 8. Cocaine and marijuana dependence. 9. Right wrist pain, concern for septic arthritis Plan Plan of Care Continue ceftriaxone Orthopedic evaluation for possible right septic joint still pending.... Monitor labs and cultures HIV pending Discussed with nursing staff TONA PERAZA MD Jan 14, 2021 08:33
[2021-01-14 10:47] VITALS: BP 112/69
--- NOTE | 2021-01-14 10:56 | PDOC ---
PULMONARY PROGRESS NOTES DATE: 01/14/21 TIME: 10:56 Subjective Pt. remains on NC oxygen No increased SOA or cough febrile overnight Vitals Vital Signs Date Time Temp Pulse Resp B/P (MAP) Pulse Ox O2 Delivery O2 Flow Rate FiO2 01/14/21 10:47 98.3 123 18 112/69 (83) 98 Room Air 98.3 ROS: No Nausea, No Chest Pain, No Abdominal Pain, No Increase Cough General: Alert Lungs: Crackles Cardiovascular: S1 Abdomen: Soft Neuro Exam: Alert Skin: Warm Labs Laboratory Tests Test 01/12/21 22:00 01/13/21 06:55 Vancomycin Level Trough 9.4 mcg/mL (10.0-20.0) Vancomycin Last Dose Date Vancomycin Last Dose Time White Blood Count 10.4 x10^3/uL (4.0-11.0) Red Blood Count 2.87 x10^6/uL (3.50-5.40) Hemoglobin 8.5 g/dL (12.0-15.5) Hematocrit 24.6 % (36.0-47.0) Mean Corpuscular Volume 86 fL (79-100) Mean Corpuscular Hemoglobin 30 pg (25-35) Mean Corpuscular Hemoglobin Concent 35 g/dL (31-37) Red Cell Distribution Width 13.8 % (11.5-14.5) Platelet Count 484 x10^3/uL (140-400) Neutrophils (%) (Auto) 77 % (31-73) Lymphocytes (%) (Auto) 17 % (24-48) Monocytes (%) (Auto) 5 % (0-9) Eosinophils (%) (Auto) 0 % (0-3) Basophils (%) (Auto) 0 % (0-3) Neutrophils # (Auto) 8.1 x10^3/uL (1.8-7.7) Lymphocytes # (Auto) 1.8 x10^3/uL (1.0-4.8) Monocytes # (Auto) 0.5 x10^3/uL (0.0-1.1) Eosinophils # (Auto) 0.0 x10^3/uL (0.0-0.7) Basophils # (Auto) 0.0 x10^3/uL (0.0-0.2) Segmented Neutrophils % 54 % (35-66) Band Neutrophils % 20 % (0-9) Lymphocytes % 13 % (24-48) Atypical Lymphocytes % (Manual) 1 % (0-0) Monocytes % 7 % (0-10) Eosinophils % 1 % (0-5) Metamyelocytes % 2 % (0-0) Myelocytes % 2 % (0-0) Nucleated Red Blood Cells 1 Platelet Estimate Increased (ADEQUATE) Large Platelets Few Polychromasia Present Target Cells Few Sodium Level 137 mmol/L (136-145) Potassium Level 3.5 mmol/L (3.5-5.1) Chloride Level 108 mmol/L (98-107) Carbon Dioxide Level 23 mmol/L (21-32) Anion Gap 6 (6-14) Blood Urea Nitrogen 8 mg/dL (7-20) Creatinine 0.6 mg/dL (0.6-1.0) Estimated GFR (Cockcroft-Gault) 123.8 BUN/Creatinine Ratio 13 (6-20) Glucose Level 94 mg/dL (70-99) Calcium Level 8.2 mg/dL (8.5-10.1) Total Bilirubin 0.5 mg/dL (0.2-1.0) Aspartate Amino Transf (AST/SGOT) 41 U/L (15-37) Alanine Aminotransferase (ALT/SGPT) 16 U/L (14-59) Alkaline Phosphatase 99 U/L (46-116) Total Protein 6.6 g/dL (6.4-8.2) Albumin 1.1 g/dL (3.4-5.0) Albumin/Globulin Ratio 0.2 (1.0-1.7) Medications Active Scripts Medications Dose Route/Sig Max Daily Dose Days Date Category No Known Medications Prior To Admisstion (Info) Each 1 Each PRN PRN 01/10/21 Reported Impression . IMPRESSION: 1. Left upper lobe suspect postobstructive pneumonia S/P bronchoscopy 2. Tobacco dependent. 3. Positive for cocaine and cannabinoids. 4. Leukocytosis--improved 5. Bacteremia 4/4 bottles. 6. Abnormal LFTs. Plan . Updated 01/12/21 Continue supplemental oxygen to keep sats above 92%, now on NC NEBS S/P bronchoscopy 01/11/21--negative for endobronchial lesion, BAL negative Follow ID recs for ABX, Follow cultures Follow ortho recs-- concern for septic arthritis Follow Cardiology recs DVT/GI PPX D/W RN Updated 01/11/21 Continue supplemental oxygen to keep sats above 92%, now on NC NEBS S/P bronchoscopy 01/11/21--see report Follow ID recs for ABX, Follow cultures Follow ortho recs-- concern for septic arthritis Follow Cardiology recs DVT/GI PPX D/W RN PLAN: 01/10/21 1. The patient has been seen by Infectious Disease Service, will continue daptomycin and Zosyn. 2. Repeat blood cultures. 3. We will proceed with bronchoscopy to rule out postobstructive process. GUANACO PHAM MD Jan 14, 2021 10:56
--- NOTE | 2021-01-14 11:54 | PDOC ---
[facility] PROGRESS NOTE Date of Service DOS: DATE: 01/14/21 TIME: 11:39 Chief Complaint Chief Complaint CC: Right Hand Pain Confusion Altered mental Status Acute encephalopathy Sepsis Cocaine Use CAP (community acquired pneumonia) Right hand pain Nonspecific ST-T wave electrocardiographic changes Hyponatremia Weight loss Lactic acidosis Abnormal LFTs Anemia Severe protein calorie malnutrition History of Present Illness History of Present Illness 01/14 Pt seen and examined. DW RN and MITRA case management. Pt has Ortho, Infectious Disease and Cardiology on the case. Pt is starting to feel much better, but still has pain in R. arm and awaiting MRI. Pt is coughing, but denies SOA. Pt says that has stayed off cocaine for 19 years, but had a slip up and had some a few days ago. HPI: Ms Mccrary is a 60 yo F who takes no routine prescribed medications, presents the ED brought in by EMS with complaints of right hand pain after falling during the day on 01/09/2021. She was very confused and unclear about history but does note moving here from [place] at the end of 2019 and used cocaine "a few days ago". She notes weight loss, fever and chills and right hand pain and stiffness and is aware she is confused. Cannot give much more history, but notes she thinks she had a heart attack back in [place], but then says she didn't. She is a little short of breath and has a slight cough, notes she may have vomiting recently but thinks it may have been due to pain. WBC 24.3, Hb 11.1, platelets 503 INR 1.2 NA 125, K4.4, BUN 45, CR 1.1, glucose 104 bilirubin 2.1, AST 29, ALT 50, alk phos 1.3, albumin 1.3, NT proBNP 359 troponin 0 lactic acid 3 initially down to 1.5 UDS positive for cocaine and cannabinoids 0809 EKG sinus tachycardia 143 bpm, left axis deviation, normal intervals, J-p oint elevations in inferior lateral leads with hyperacute/peaked T waves, Q-wave lead III and aVF Chest radiograph with left upper lobe opacity Right hand radiograph without fracture CT head with no acute abnormality CT of the chest with contrast confirms multifocal left upper lobe pneumonia with hilar fullness and mediastinal lymphadenopathy. BP 90/50 after empiric antibiotics and fluids for sepsis, given rocephin and azithromycin. Admitted to ICU for further care. 6/25: Afebrile overnight. Transferred to [facility] for possible bronchoscopy today.WBC 16.2, Hb 8.1, platelets 443, NA 135 albumin 0.9 CRP 199 and sed rate 125. To bronchoscopy with purulent secretions in left upper lobe no discrete mass found. BAL culture obtained. 01/12: T-max 100.1 F overnight. BP improved. K low Feeling little better appetite improved. Still with Right wrist pain swelling and stiffness Afebrile overnight. WBC down to 10.4, Hb 8.5 AST down to 41, albumin 1.1. Uric acid 1.5. Mg 1.4, K 3.5. Still with right wrist pain. Overall she feels a little better but still has a cough. Vitals/I&O Vitals/I&O: Vital Signs Date Time Temp Pulse Resp B/P (MAP) Pulse Ox O2 Delivery O2 Flow Rate FiO2 01/14/21 10:47 98.3 123 18 112/69 (83) 98 Room Air 98.3 I & O 01/13/21 01/13/21 01/14/21 15:00 23:00 07:00 Intake Total 240 ml 410 ml 240 ml Output Total 750 ml Balance -510 ml 410 ml 240 ml Physical Exam Physical Exam: GENERAL: Thin, cachectic, female lying in bed in no acute distress. HEENT: Normocephalic, atraumatic. Temporal wasting. No thrush. NECK: Supple, no JVD. LUNGS: Decreased breath sounds, mainly over the left lower lung. No wheezing. HEART: S1, S2. Could not appreciate any murmurs. ABDOMEN: Soft, scaphoid. Bowel sounds present, nontender. EXTREMITIES: No edema, no cyanosis. Wasting. DERMATOLOGIC: Warm, dry, no generalized rash. MUSCULOSKELETAL: Right hand, decreased range of motion, appears to have mild effusion at the wrist, unable to flex or extend due to pain. Slight warmth. NEUROLOGIC: Alert, oriented x 3, grossly nonfocal. Appears weak. Has generalized weakness. PSYCHIATRIC: Calm and cooperative. General: Alert, Oriented X3, No acute distress Heart: Regular rate (SR/ST), Normal S1, Normal S2, No murmurs Lungs: Crackles Abdomen: Normal bowel sounds, Soft, No tenderness, No hepatosplenomegaly, No masses Extremities: No clubbing, No cyanosis, No edema, Normal pulses, No tenderness/swelling Skin: No rashes, No breakdown, No significant lesion Review of Systems Review of Systems: Denies chest pain. Denies abdominal pain. Assessment and Plan Assessmemt and Plan Problems Medical Problems: (1) CAP (community acquired pneumonia) Status: Acute (2) Cocaine use Status: Acute (3) Hyponatremia Status: Acute (4) Nonspecific ST-T wave electrocardiographic changes Status: Acute (5) Person under investigation for COVID-19 Status: Acute (6) Sepsis Status: Acute Assessment: CC: Right Hand Pain Confusion Altered mental Status Acute encephalopathy Sepsis Cocaine Use CAP (community acquired pneumonia) Right hand pain Nonspecific ST-T wave electrocardiographic changes Hyponatremia Weight loss Lactic acidosis Abnormal LFTs Anemia Severe protein calorie malnutrition Plan: Awaiting MRI on R arm Infectious Disease, Ortho, and Cardiology on the case Appreciate specialist input Continue Duo Nebulizer PRN O2 Continue Cardiac Monitoring PT/OT Continue Home Meds DVT prophylaxis Continue IV antibiotics Full Code Comment Review of Relevant I have reviewed the following items terry (where applicable) has been applied. Medications: Current Medications Medications (Trade) Dose Ordered Sig/[place] Route PRN Reason Start Time Stop Time Status Last Admin Dose Admin Lidocaine HCl (Xylocaine-Mpf 1% 2ml Vial) 2 ml 1X ONCE INJ 01/13/21 16:00 01/13/21 16:01 DC 01/13/21 17:33 Justifications for Admission Other Justification BRIAN PLAZA III DO Jan 14, 2021 11:54
[2021-01-14] MEDS: cefTRIAXone IV Push 2 GM VIAL. IVP SCH (14:56)
[2021-01-14 15:21] VITALS: BP 93/54
[2021-01-14] MEDS: ACETAMINOPHEN 325 MG TABLET. PO PRN (17:31)
[2021-01-14 19:00] VITALS: BP 95/63
[2021-01-14 22:55] VITALS: BP 121/69
[2021-01-15 03:12] VITALS: BP 101/45
[2021-01-15] MEDS: HEPARIN for SUB-Q USE 5,000 UNIT/ML VIAL. SQ SCH ×3 (06:09→21:40)
[2021-01-15 07:00] VITALS: BP 113/69
--- NOTE | 2021-01-15 07:35 | PDOC ---
PROGRESS NOTES Date of Service DATE: 01/15/21 TIME: 07:33 Subjective Subjective Reports improvement in her symptoms overnight. Tolerated her MRI without significant difficulty. Objective Vital Signs Vital Signs Date Time Temp Pulse Resp B/P (MAP) Pulse Ox O2 Delivery O2 Flow Rate FiO2 01/15/21 03:12 97.9 112 16 101/45 (63) 99 Room Air 97.9 01/11/21 11:41 3 Physical Exam Continued swelling and pain at the dorsal wrist. Slight improvement in range of motion. Distal neurovascular examination intact. Labs Laboratory Tests Test 01/13/21 09:55 HIV (1&2) Antibody Screen Reactive (Nonreactive) Imaging MRI right wrist pending Assessment Assessment 60-year-old female with right wrist cellulitis Plan Plan of Care Weightbearing as tolerated right upper extremity. Await radiology report from MRI of the right wrist. Continue antibiotics per infectious disease re commendations. PT/OT to eval and treat. Plan to work on range of motion. Continue icing and elevation. Justicifation of Admission Dx: Justifications for Admission: Justification of Admission Dx: Yes DONY BYERS MD Jan 15, 2021 07:35
[2021-01-15] MEDS: LACTOBACILLUS RHAMNOSUS GG 1 CAPSULE. PO SCH (08:08)
--- NOTE | 2021-01-15 08:28 | PDOC ---
Infectious Disease Note Subjective Subjective Patient feels better Right wrist pain continues Discussed with nursing staff ROS ROS no n/v/d/sob low grade fever Vital Sign Vital Signs Vital Signs Date Time Temp Pulse Resp B/P (MAP) Pulse Ox O2 Delivery O2 Flow Rate FiO2 01/15/21 03:12 97.9 112 16 101/45 (63) 99 Room Air 97.9 Physical Exam PHYSICAL EXAM GENERAL: Thin, cachectic, female lying in bed in no acute distress. HEENT: Normocephalic, atraumatic. Temporal wasting. No thrush. NECK: Supple, no JVD. LUNGS: Decreased breath sounds, mainly over the left lower lung. No wheezing. HEART: S1, S2. Could not appreciate any murmurs. ABDOMEN: Soft, scaphoid. Bowel sounds present, nontender. EXTREMITIES: No edema, no cyanosis. Wasting. DERMATOLOGIC: Warm, dry, no generalized rash. MUSCULOSKELETAL: Right hand, decreased range of motion, appears to have mild effusion at the wrist, unable to flex or extend due to pain. Slight warmth. NEUROLOGIC: Alert, oriented x 3, grossly nonfocal. Appears weak. Has generalized weakness. PSYCHIATRIC: Calm and cooperative. Labs Micro Microbiology 01/11/21 - Final, Complete 01/11/21 Blood Culture - Preliminary, Resulted NO GROWTH AFTER 3 DAYS 01/09/21 Urine Culture - Final, Complete Objective Assessment 1. Sepsis. 2. Strep pneumoniae bacteremia, 4/4 bottles present on admission. 3. Weight loss. 4. Extensive left lung mass. Status post bronchoscopy 5. Hyponatremia. 6. Leukocytosis and lactic acidosis. 7. Abnormal LFTs. 8. Cocaine and marijuana dependence. 9. Right wrist pain, concern for septic arthritis Plan Plan of Care Continue ceftriaxone MRI of wrist report pending Monitor labs and cultures HIV + HIV RNA PCR ordered, CD 4 ordered, Genotype is not allowed here at [facility] in detail discussion done with pt about going [facility] get [facility] [facility] [place] and then meds, though confirmation is still pending Discussed with nursing staff TONA PERAZA MD Jan 15, 2021 08:28
--- NOTE | 2021-01-15 09:39 | PDOC ---
PULMONARY PROGRESS NOTES DATE: 01/15/21 TIME: 09:39 Subjective No new symptoms Vitals Vital Signs Date Time Temp Pulse Resp B/P (MAP) Pulse Ox O2 Delivery O2 Flow Rate FiO2 01/15/21 08:00 Room Air 01/15/21 07:00 98.7 130 16 113/69 (84) 95 98.7 ROS: No Nausea, No Chest Pain, No Abdominal Pain, No Increase Cough General: Alert Lungs: Crackles Cardiovascular: S1 Abdomen: Soft Neuro Exam: Alert Skin: Warm Labs Laboratory Tests Test 01/13/21 09:55 HIV (1&2) Antibody Screen Reactive (Nonreactive) Medications Active Scripts Medications Dose Route/Sig Max Daily Dose Days Date Category No Known Medications Prior To Admisstion (Info) Each 1 Each MC PRN PRN 01/10/21 Reported Impression . IMPRESSION: 1. Left upper lobe suspect postobstructive pneumonia S/P bronchoscopy 2. Tobacco dependent. 3. Positive for cocaine and cannabinoids. 4. Leukocytosis--improved 5. Bacteremia 4/4 bottles. 6. Abnormal LFTs. Plan . Updated 01/15 Patient to discharge when okay with ID Discussed with social service regarding her HIV status Repeat CT chest in 2 months BAL negative Updated 01/12/21 Continue supplemental oxygen to keep sats above 92%, now on [place] NEBS S/P bronchoscopy 01/11/21--negative for endobronchial lesion, BAL negative Follow ID recs for ABX, Follow cultures Follow ortho recs-- concern for septic arthritis Follow Cardiology recs DVT/GI PPX D/W RN Updated 01/11/21 Continue supplemental oxygen to keep sats above 92%, now on [place] NEBS S/P bronchoscopy 01/11/21--see report Follow ID recs for ABX, Follow cultures Follow ortho recs-- concern for septic arthritis Follow Cardiology recs DVT/GI PPX D/W GUANACO DANIELLE MD Jan 15, 2021 09:39
[2021-01-15 11:00] VITALS: BP 112/72
--- NOTE | 2021-01-15 11:07 | PDOC ---
[facility] PROGRESS NOTE Date of Service DOS: DATE: 01/15/21 TIME: 11:02 Chief Complaint Chief Complaint CC: Right Hand Pain Confusion Altered mental Status Acute encephalopathy Sepsis Cocaine Use CAP (community acquired pneumonia) Right hand pain Nonspecific ST-T wave electrocardiographic changes Hyponatremia Weight loss Lactic acidosis Abnormal LFTs Anemia Severe protein calorie malnutrition Positive HIV test History of Present Illness History of Present Illness 01/15 Pt seen and examined. MITRA RN and MITRA case management. Pt is tearful and down over hearing news that HIV test was positive. Pt still has pain in R. wrist. No erythema or visible swelling, but still decreased ROM in R wrist. 01/14 Pt seen and examined. MITRA RN and MITRA case management. Pt has Ortho, Infectious Disease and Cardiology on the case. Pt is starting to feel much better, but still has pain in R. arm and awaiting MRI. Pt is coughing, but denies SOA. Pt says that has stayed off cocaine for 19 years, but had a slip up and had some a few days ago. HPI: Ms Mccrary is a 60 yo F who takes no routine prescribed medications, presents the ED brought in by EMS with complaints of right hand pain after falling during the day on 01/09/2021. She was very confused and unclear about history but does note moving here from [place] at the end of 2019 and used cocaine "a few days ago". She notes weight loss, fever and chills and right hand pain and stiffness and is aware she is confused. Cannot give much more history, but notes she thinks she had a heart attack back in [place], but then says she didn't. She is a little short of breath and has a slight cough, notes she may have vomiting recently but thinks it may have been due to pain. WBC 24.3, Hb 11.1, platelets 503 INR 1.2 NA 125, K4.4, BUN 45, CR 1.1, glucose 104 bilirubin 2.1, AST 29, ALT 50, alk phos 1.3, albumin 1.3, NT proBNP 359 troponin 0 lactic acid 3 initially down to 1.5 UDS positive for cocaine and cannabinoids 0809 EKG sinus tachycardia 143 bpm, left axis deviation, normal intervals, J- point elevations in inferior lateral leads with hyperacute/peaked T waves, Q- wave lead III and aVF Chest radiograph with left upper lobe opacity Right hand radiograph without fracture CT head with no acute abnormality CT of the chest with contrast confirms multifocal left upper lobe pneumonia with hilar fullness and mediastinal lymphadenopathy. BP 90/50 after empiric antibiotics and fluids for sepsis, given rocephin and azithromycin. Admitted to ICU for further care. 01/11: Afebrile overnight. Transferred to [facility] for possible bronchoscopy today.WBC 16.2, Hb 8.1, platelets 443, NA 135 albumin 0.9 CRP 199 and sed rate 125. To bronchoscopy with purulent secretions in left upper lobe no discrete mass found. BAL culture obtained. 01/12: T-max 100.1 F overnight. BP improved. K low Feeling little better appetite improved. Still with Right wrist pain swelling and stiffness Afebrile overnight. WBC down to 10.4, Hb 8.5 AST down to 41, albumin 1.1. Uric acid 1.5. Mg 1.4, K 3.5. Still with right wrist pain. Overall she feels a little better but still has a cough. Vitals/I&O Vitals/I&O: Vital Signs Date Time Temp Pulse Resp B/P (MAP) Pulse Ox O2 Delivery O2 Flow Rate FiO2 01/15/21 08:00 Room Air 01/15/21 07:00 98.7 130 16 113/69 (84) 95 98.7 I & O 01/14/21 01/14/21 01/15/21 15:00 23:00 07:00 Intake Total 660 ml 980 ml 0 ml Balance 660 ml 980 ml 0 ml Physical Exam Physical Exam: GENERAL: Thin, cachectic, female lying in bed in no acute distress. HEENT: Normocephalic, atraumatic. Temporal wasting. No thrush. NECK: Supple, no JVD. LUNGS: Decreased breath sounds, mainly over the left lower lung. No wheezing. HEART: S1, S2. Could not appreciate any murmurs. ABDOMEN: Soft, scaphoid. Bowel sounds present, nontender. EXTREMITIES: No edema, no cyanosis. Wasting. DERMATOLOGIC: Warm, dry, no generalized rash. MUSCULOSKELETAL: Right hand, decreased range of motion, appears to have mild effusion at the wrist, unable to flex or extend due to pain. Slight warmth. NEUROLOGIC: Alert, oriented x 3, grossly nonfocal. Appears weak. Has generalized weakness. PSYCHIATRIC: Calm and cooperative. General: Alert, Oriented X3, No acute distress Heart: Regular rate (SR/ST), Normal S1, Normal S2, No murmurs Lungs: Crackles Abdomen: Normal bowel sounds, Soft, No tenderness, No hepatosplenomegaly, No masses Extremities: No clubbing, No cyanosis, No edema, Normal pulses, No tenderness/swelling Skin: No rashes, No breakdown, No significant lesion Review of Systems Review of Systems: Denies Abdominal Pain . Denies Headaches. Assessment and Plan Assessmemt and Plan Problems Medical Problems: (1) CAP (community acquired pneumonia) Status: Acute (2) Cocaine use Status: Acute (3) Hyponatremia Status: Acute (4) Nonspecific ST-T wave electrocardiographic changes Status: Acute (5) Person under investigation for COVID-19 Status: Acute (6) Sepsis Status: Acute CC: Right Hand Pain Confusion Altered mental Status Assessment: Acute encephalopathy Sepsis Cocaine Use CAP (community acquired pneumonia) Right hand pain Nonspecific ST-T wave electrocardiographic changes Hyponatremia Weight loss Lactic acidosis Abnormal LFTs Anemia Severe protein calorie malnutrition Positive HIV test Plan: Continue Antibiotics per infectious disease Awaiting CD4 Count PT/OT Appreciate specialist input Continue Duo Nebulizer PRN O2 DVT prophylaxis Continue Home Meds Full Code Comment Review of Relevant I have reviewed the following items terry (where applicable) has been applied. Justifications for Admission Other Justification BRIAN PLAZA III DO Jan 15, 2021 11:07
[2021-01-15] MEDS ORDERED: GADOTERATE 5 MMOL/10ML VIAL. IVP ONE (11:30)
--- NOTE | 2021-01-15 12:09 | PATHOLOGY ---
Note [facility] Accession Number: [id number] TESTS RESULT FLAG UNITS REF RANGE LAB Clinician Provided Cytology Information No. of containers..01 Other (Miscellaneous) Source: JAY BAL DIAGNOSIS: 02 JAY BAL NEGATIVE FOR MALIGNANT CELLS. FEW BRONCHIAL EPITHELIAL CELLS, PULMONARY MACROPHAGES, AND NUMEROUS ACUTE INFLAMMATORY CELLS PRESENT. SILVER STAIN IS NEGATIVE FOR PNEUMOCYSTIS. RARE SLENDER FUNGAL HYPHAE PRESENT. Signed out by: 02 Nathan Mcwilliams MD, Pathologist NPI- [id number] Performed by: 01 Amparo Hubbard, Hop Separator ([facility]) Gross description: 01 7ML, CLOUDY GREEN, 1 TP 1 GMS /LCS 01/12/2021 0319 Local FLAG LEGEND: L-Low Normal,H-High Normal,LL-Alert Low,HH-Alert High <-Panic Low,>-Panic High,A-Abnormal,AA-Critical Abnormal Performed at: 01 [facility] [address] [place] [address] Jose Monae MD, 02 [facility] [facility] [address] [place] [address] Nathan Mcwilliams MD, Specimen Comment: A courtesy copy of this report has been sent to [phone], [phone] Specimen Comment: [id number] Specimen Comment: Report sent to ,DR PINEDA / DR MEDELLIN Specimen Comment: A duplicate report has been generated due to demographic updates. Performed at: [address] [facility], [place], [place] [id number] MD Jose Monae MD Phone: [phone]
[2021-01-15] MEDS: cefTRIAXone IV Push 2 GM VIAL. IVP SCH (14:19)
[2021-01-15 15:00] VITALS: BP 105/64
--- NOTE | 2021-01-15 16:03 | RAD ---
STUDY: MRI of the right wrist with and without contrast INDICATION: Septic arthritis. COMPARISON: Right wrist ultrasound 01/13/2021; right wrist radiographs 01/10/2021 TECHNIQUE: Multiplanar MR imaging of the right wrist performed both prior to and after the intravenou s administration of 10 cc Clariscan. FINDINGS: Multiple sequences are degraded on account of motion which also results in inconsistent fat suppressi on. Scattered mild carpal bone edema-like signal with enhancement. There may be an erosion at the volar/r adial aspect of the capitate as seen on image 14 series 5. Marrow signal the distal radius and ulna i s relatively normal. Moderate-sized distal radioulnar joint effusion without overt synovial thickening or enhancement. Wri st synovitis with a few smaller pockets of fluid such as seen dorsal to the capitate on image 14 seri es 7 and distal to the pisiform on image 13 series 7. Small volume fluid along the flexor tendons wit hin the carpal tunnel. Scattered small volume fluid within the extensor tendon sheaths such as involv ing the second, third and sixth compartments. Soft tissue edema which is both volar and dorsal at the distal forearm but primarily dorsal at the wrist through the hand. No well delineated superficial fl uid collection. No acute tendon disruption. Limited assessment of the intrinsic wrist ligaments due to motion. The do rsal and volar bands of the triangular fibrocartilage complex are intact. Partial tearing of the TFCC articular disc. IMPRESSION: 1. Wrist synovitis with only a small amount of intermixed fluid which would be difficult to aspirate . Notably there is a moderate volume of fluid within the distal radioulnar joint. Mild scattered carp al bone edema and a possible capitate erosion, noting motion artifact. Edematous subcutaneous tissues some of which could represent cellulitis in the appropriate clinical setting. Septic arthritis remai ns a consideration though the findings could be reactive. An alterative would be an inflammatory arth ritis. If aspiration is again attempted the distal radioulnar should be targeted. 2. Small amount of flexor and extensor tendon sheath fluid. No acute tendon disruption. 3. 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 Electronically signed by: BLAYNE CLINE MD (01/15/2021 4:00 PM) [id number]
[2021-01-15 19:00] VITALS: BP 138/57
[2021-01-15] MEDS: ACETAMINOPHEN 325 MG TABLET. PO PRN (21:39)
[2021-01-15 22:04] VITALS: BP 100/54
[2021-01-16 03:00] VITALS: BP 99/66
[2021-01-16] MEDS: HEPARIN for SUB-Q USE 5,000 UNIT/ML VIAL. SQ SCH ×3 (05:55→22:20)
[2021-01-16 07:00] VITALS: BP 120/70
[2021-01-16 08:02] LABS: BASO % 0 % (0-3); EOS % 0 % (0-3); HEMATOCRIT 22.7 % (36.0-47.0); HEMOGLOBIN 7.6 g/dL (12.0-15.5); LYMPH # 1.3 x10^3/uL (1.0-4.8); LYMPH % 22 % (24-48); MEAN CORPUSCULAR HEMOGLOBIN 29 pg (25-35); MEAN CORPUSCULAR HGB CONC 33 g/dL (31-37); MEAN CORPUSCULAR VOLUME 87 fL (79-100); MONO # 0.5 x10^3/uL (0.0-1.1); MONO % 8 % (0-9); NEUT % 69 % (31-73); PLATELET COUNT 446 x10^3/uL (140-400); RED CELL DISTRIBUTION WIDTH 13.8 % (11.5-14.5); WHITE BLOOD COUNT 5.8 x10^3/uL (4.0-11.0)
--- NOTE | 2021-01-16 08:15 | PDOC ---
Infectious Disease Note Subjective Subjective Patient feels better did have fever upto 102 + no sob, no n/v/d Discussed with nursing staff Vital Sign Vital Signs Vital Signs Date Time Temp Pulse Resp B/P (MAP) Pulse Ox O2 Delivery O2 Flow Rate FiO2 01/16/21 03:00 98.2 102 18 99/66 (77) 99 Room Air 98.2 Physical Exam PHYSICAL EXAM GENERAL: Thin, cachectic, female sitting in chair in no acute distress. HEENT: Normocephalic, atraumatic. Temporal wasting. No thrush. NECK: Supple, no JVD. LUNGS: Decreased breath sounds, mainly over the left lower lung. No wheezing. HEART: S1, S2. Could not appreciate any murmurs. ABDOMEN: Soft, scaphoid. Bowel sounds present, nontender. EXTREMITIES: No edema, no cyanosis. Wasting. DERMATOLOGIC: Warm, dry, no generalized rash. MUSCULOSKELETAL: Right hand, decreased range of motion, appears to have mild effusion at the wrist, unable to flex or extend due to pain. Slight warmth. NEUROLOGIC: Alert, oriented x 3, grossly nonfocal. Appears weak. Has generalized weakness. PSYCHIATRIC: Calm and cooperative. Labs Micro Microbiology 01/11/21 - Final, Complete 01/11/21 Blood Culture - Preliminary, Resulted NO GROWTH AFTER 3 DAYS 01/09/21 Urine Culture - Final, Complete Objective Assessment 1. Sepsis. 2. Strep pneumoniae bacteremia, 4/4 bottles present on admission. 3. Weight loss. 4. Extensive left lung mass. Status post bronchoscopy 5. Hyponatremia. 6. Leukocytosis and lactic acidosis. 7. Abnormal LFTs. 8. Cocaine and marijuana dependence. 9. Right wrist pain, concern for septic arthritis Plan Plan of Care Continue ceftriaxone MRI noted Monitor labs and cultures HIV + HIV RNA PCR ordered, CD 4 ordered, Genotype is not allowed here at [facility] in detail discussion done with pt about [facility] get [facility] [place] and then meds, though confirmation is still pending Discussed with nursing staff histo, crypto , fungal and afb culture pending start TONA Llanos MD Jan 16, 2021 08:15
[2021-01-16 08:31] LABS: CALCIUM 8.3 mg/dL (8.5-10.1); CREATININE 0.5 mg/dL (0.6-1.0); GFR 152.8; POTASSIUM 3.7 mmol/L (3.5-5.1)
[2021-01-16] MEDS: SMZ/TMP 800/160MG TABLET. PO SCH ×3 (08:48→22:14)
--- NOTE | 2021-01-16 09:15 | PDOC ---
PROGRESS NOTES Date of Service DATE: 01/16/21 TIME: 09:12 Subjective Subjective Patient reports improved range of motion at the hand over the last 24 hours. Continued pain at the distal wrist. Objective Vital Signs Vital Signs Date Time Temp Pulse Resp B/P (MAP) Pulse Ox O2 Delivery O2 Flow Rate FiO2 01/16/21 07:00 99.0 109 18 120/70 (87) 97 Room Air 99.0 01/11/21 11:41 3 Physical Exam Afebrile, vital signs stable. No acute distress. Distal neurovascular examina tion intact with capillary refill less than 2 seconds to the tips of all digits. Range of motion with full extension and flexion at the digits intact. Continued pain with dorsiflexion and volar flexion of the wrist. Tenderness to palpation at the distal ulna. Labs Laboratory Tests Test 01/16/21 07:05 White Blood Count 5.8 x10^3/uL (4.0-11.0) Red Blood Count 2.60 x10^6/uL (3.50-5.40) Hemoglobin 7.6 g/dL (12.0-15.5) Hematocrit 22.7 % (36.0-47.0) Mean Corpuscular Volume 87 fL (79-100) Mean Corpuscular Hemoglobin 29 pg (25-35) Mean Corpuscular Hemoglobin Concent 33 g/dL (31-37) Red Cell Distribution Width 13.8 % (11.5-14.5) Platelet Count 446 x10^3/uL (140-400) Neutrophils (%) (Auto) 69 % (31-73) Lymphocytes (%) (Auto) 22 % (24-48) Monocytes (%) (Auto) 8 % (0-9) Eosinophils (%) (Auto) 0 % (0-3) Basophils (%) (Auto) 0 % (0-3) Neutrophils # (Auto) 4.0 x10^3/uL (1.8-7.7) Lymphocytes # (Auto) 1.3 x10^3/uL (1.0-4.8) Monocytes # (Auto) 0.5 x10^3/uL (0.0-1.1) Eosinophils # (Auto) 0.0 x10^3/uL (0.0-0.7) Basophils # (Auto) 0.0 x10^3/uL (0.0-0.2) Sodium Level 134 mmol/L (136-145) Potassium Level 3.7 mmol/L (3.5-5.1) Chloride Level 101 mmol/L (98-107) Carbon Dioxide Level 25 mmol/L (21-32) Anion Gap 8 (6-14) Blood Urea Nitrogen 8 mg/dL (7-20) Creatinine 0.5 mg/dL (0.6-1.0) Estimated GFR (Cockcroft-Gault) 152.8 Glucose Level 93 mg/dL (70-99) Calcium Level 8.3 mg/dL (8.5-10.1) Laboratory Tests Test 01/16/21 07:05 White Blood Count 5.8 x10^3/uL (4.0-11.0) Red Blood Count 2.60 x10^6/uL (3.50-5.40) Hemoglobin 7.6 g/dL (12.0-15.5) Hematocrit 22.7 % (36.0-47.0) Mean Corpuscular Volume 87 fL (79-100) Mean Corpuscular Hemoglobin 29 pg (25-35) Mean Corpuscular Hemoglobin Concent 33 g/dL (31-37) Red Cell Distribution Width 13.8 % (11.5-14.5) Platelet Count 446 x10^3/uL (140-400) Neutrophils (%) (Auto) 69 % (31-73) Lymphocytes (%) (Auto) 22 % (24-48) Monocytes (%) (Auto) 8 % (0-9) Eosinophils (%) (Auto) 0 % (0-3) Basophils (%) (Auto) 0 % (0-3) Neutrophils # (Auto) 4.0 x10^3/uL (1.8-7.7) Lymphocytes # (Auto) 1.3 x10^3/uL (1.0-4.8) Monocytes # (Auto) 0.5 x10^3/uL (0.0-1.1) Eosinophils # (Auto) 0.0 x10^3/uL (0.0-0.7) Basophils # (Auto) 0.0 x10^3/uL (0.0-0.2) Sodium Level 134 mmol/L (136-145) Potassium Level 3.7 mmol/L (3.5-5.1) Chloride Level 101 mmol/L (98-107) Carbon Dioxide Level 25 mmol/L (21-32) Anion Gap 8 (6-14) Blood Urea Nitrogen 8 mg/dL (7-20) Creatinine 0.5 mg/dL (0.6-1.0) Estimated GFR (Cockcroft-Gault) 152.8 Glucose Level 93 mg/dL (70-99) Calcium Level 8.3 mg/dL (8.5-10.1) Imaging MRI significant for fluid collection in the DRUJ and surrounding the distal uln a. IMPRESSION: 1. Wrist synovitis with only a small amount of intermixed fluid which would be difficult to aspirate. Notably there is a moderate volume of fluid within the distal radioulnar joint. Mild scattered carpal bone edema and a possible capitate erosion, noting motion artifact. Edematous subcutaneous tissues some of which could represent cellulitis in the appropriate clinical setting. Septic arthritis remains a consideration though the findings could be reactive. An alterative would be an inflammatory arthritis. If aspiration is again attempted the distal radioulnar should be targeted. 2. Small amount of flexor and extensor tendon sheath fluid. No acute tendon disruption. 3. 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 Assessment Assessment 60-year-old female with right wrist cellulitis Plan Plan of Care Progress discussed with patient. Results of the MRI discussed in detail. We discussed the fluid collection present of the distal ulna. We discussed that a repeat aspiration attempt by interventional radiology is indicated to rule out infection. Consult was placed to IR today. Fluid analysis labs were ordered. We will continue to monitor progress. Justicifation of Admission Dx: Justifications for Admission: Justification of Admission Dx: Yes DONY BYERS MD Jan 16, 2021 09:15
--- NOTE | 2021-01-16 09:16 | PDOC ---
[facility] PROGRESS NOTE Date of Service DOS: DATE: 01/16/21 TIME: 09:13 Chief Complaint Chief Complaint CC: Right Hand Pain Confusion Altered mental Status Acute encephalopathy Sepsis Cocaine Use CAP (community acquired pneumonia) Right hand pain Nonspecific ST-T wave electrocardiographic changes Hyponatremia Weight loss Lactic acidosis Abnormal LFTs Anemia Severe protein calorie malnutrition Positive HIV test History of Present Illness History of Present Illness 01/16 Pt seen and examined. MITRA RN. Pt is in pleasant mood today. Pt R wrist pain is feeling better today. 01/15 Pt seen and examined. MITRA RN and MITRA case management. Pt is tearful and down over hearing news that HIV test was positive. Pt still has pain in R. wrist. No erythema or visible swelling, but still decreased ROM in R wrist. 01/14 Pt seen and examined. MITRA RN and MITRA case management. Pt has Ortho, Infectious Disease and Cardiology on the case. Pt is starting to feel much better, but still has pain in R. arm and awaiting MRI. Pt is coughing, but denies SOA. Pt says that has stayed off cocaine for 19 years, but had a slip up and had some a few days ago. HPI: Ms Mccrary is a 60 yo F who takes no routine prescribed medications, presents the ED brought in by EMS with complaints of right hand pain after falling during the day on 01/09/2021. She was very confused and unclear about history but does note moving here from [place] at the end of 2019 and used cocaine "a few days ago". She notes weight loss, fever and chills and right hand pain and stiffness and is aware she is confused. Cannot give much more history, but notes she thinks she had a heart attack back in [place], but then says she didn't. She is a little short of breath and has a slight cough, notes she may have vomiting recently but thinks it may have been due to pain. WBC 24.3, Hb 11.1, platelets 503 INR 1.2 NA 125, K4.4, BUN 45, CR 1.1, glucose 104 bilirubin 2.1, AST 29, ALT 50, alk phos 1.3, albumin 1.3, NT proBNP 359 troponin 0 lactic acid 3 initially down to 1.5 UDS positive for cocaine and cannabinoids 0809 EKG sinus tachycardia 143 bpm, left axis deviation, normal intervals, J- point elevations in inferior lateral leads with hyperacute/peaked T waves, Q- wave lead III and aVF Chest radiograph with left upper lobe opacity Right hand radiograph without fracture CT head with no acute abnormality CT of the chest with contrast confirms multifocal left upper lobe pneumonia with hilar fullness and mediastinal lymphadenopathy. BP 90/50 after empiric antibiotics and fluids for sepsis, given rocephin and azithromycin. Admitted to ICU for further care. 01/11: Afebrile overnight. Transferred to CVC. N.p.o. for possible bronchoscopy today.WBC 16.2, Hb 8.1, platelets 443, NA 135 albumin 0.9 CRP 199 and sed rate 125. To bronchoscopy with purulent secretions in left upper lobe no discrete mass found. BAL culture obtained. 01/12: T-max 100.1 F overnight. BP improved. K low Feeling little better appetite improved. Still with Right wrist pain swelling and stiffness Afebrile overnight. WBC down to 10.4, Hb 8.5 AST down to 41, albumin 1.1. Uric acid 1.5. Mg 1.4, K 3.5. Still with right wrist pain. Overall she feels a little better but still has a cough. Vitals/I&O Vitals/I&O: Vital Signs Date Time Temp Pulse Resp B/P (MAP) Pulse Ox O2 Delivery O2 Flow Rate FiO2 01/16/21 07:00 99.0 109 18 120/70 (87) 97 Room Air 99.0 I & O 01/15/21 01/15/21 01/16/21 15:00 23:00 07:00 Intake Total 360 ml 360 ml 320 ml Balance 360 ml 360 ml 320 ml Physical Exam Physical Exam: GENERAL: Thin, cachectic, female sitting in chair in no acute distress. HEENT: Normocephalic, atraumatic. Temporal wasting. No thrush. NECK: Supple, no JVD. LUNGS: Decreased breath sounds, mainly over the left lower lung. No wheezing. HEART: S1, S2. Could not appreciate any murmurs. ABDOMEN: Soft, scaphoid. Bowel sounds present, nontender. EXTREMITIES: No edema, no cyanosis. Wasting. DERMATOLOGIC: Warm, dry, no generalized rash. MUSCULOSKELETAL: Right hand, decreased range of motion, appears to have mild effusion at the wrist, unable to flex or extend due to pain. Slight warmth. NEUROLOGIC: Alert, oriented x 3, grossly nonfocal. Appears weak. Has generalized weakness. PSYCHIATRIC: Calm and cooperative. General: Alert, Oriented X3, No acute distress Heart: Regular rate (SR/ST non specific changes), Normal S1, Normal S2, No murmurs Lungs: Crackles Abdomen: Normal bowel sounds, Soft, No tenderness, No hepatosplenomegaly, No masses Extremities: No clubbing, No cyanosis, No edema, Normal pulses, No tenderness/swelling Skin: No rashes, No breakdown, No significant lesion Labs Labs: Laboratory Tests Test 01/16/21 07:05 White Blood Count 5.8 x10^3/uL (4.0-11.0) Red Blood Count 2.60 x10^6/uL (3.50-5.40) Hemoglobin 7.6 g/dL (12.0-15.5) Hematocrit 22.7 % (36.0-47.0) Mean Corpuscular Volume 87 fL (79-100) Mean Corpuscular Hemoglobin 29 pg (25-35) Mean Corpuscular Hemoglobin Concent 33 g/dL (31-37) Red Cell Distribution Width 13.8 % (11.5-14.5) Platelet Count 446 x10^3/uL (140-400) Neutrophils (%) (Auto) 69 % (31-73) Lymphocytes (%) (Auto) 22 % (24-48) Monocytes (%) (Auto) 8 % (0-9) Eosinophils (%) (Auto) 0 % (0-3) Basophils (%) (Auto) 0 % (0-3) Neutrophils # (Auto) 4.0 x10^3/uL (1.8-7.7) Lymphocytes # (Auto) 1.3 x10^3/uL (1.0-4.8) Monocytes # (Auto) 0.5 x10^3/uL (0.0-1.1) Eosinophils # (Auto) 0.0 x10^3/uL (0.0-0.7) Basophils # (Auto) 0.0 x10^3/uL (0.0-0.2) Sodium Level 134 mmol/L (136-145) Potassium Level 3.7 mmol/L (3.5-5.1) Chloride Level 101 mmol/L (98-107) Carbon Dioxide Level 25 mmol/L (21-32) Anion Gap 8 (6-14) Blood Urea Nitrogen 8 mg/dL (7-20) Creatinine 0.5 mg/dL (0.6-1.0) Estimated GFR (Cockcroft-Gault) 152.8 Glucose Level 93 mg/dL (70-99) Calcium Level 8.3 mg/dL (8.5-10.1) Review of Systems Review of Systems: Denies abdominal pain. Denies calf pain b/l. Assessment and Plan Assessmemt and Plan Problems Medical Problems: (1) CAP (community acquired pneumonia) Status: Acute (2) Cocaine use Status: Acute (3) Hyponatremia Status: Acute (4) Nonspecific ST-T wave electrocardiographic changes Status: Acute (5) Person under investigation for COVID-19 Status: Acute (6) Sepsis Status: Acute CC: Right Hand Pain Confusion Altered mental Status Acute encephalopathy Sepsis Cocaine Use CAP (community acquired pneumonia) Right hand pain Nonspecific ST-T wave electrocardiographic changes Hyponatremia Weight loss Lactic acidosis Abnormal LFTs Anemia Severe protein calorie malnutrition Positive HIV test Plan: Discharge Disposition Pending Continue Antibiotics per infectious disease Awaiting CD4 Count PT/OT Appreciate specialist input Continue Duo Nebulizer PRN O2 DVT prophylaxis Continue Home Meds Full Code Comment Review of Relevant I have reviewed the following items terry (where applicable) has been applied. Medications: Current Medications Medications (Trade) Dose Ordered Sig/[place] Route PRN Reason Start Time Stop Time Status Last Admin Dose Admin Gadoterate Meglumine ([place]) 10 ml 1X ONCE IVP 01/15/21 11:30 01/15/21 11:33 DC 01/15/21 12:39 Trimethoprim/ Sulfamethoxazole (Bactrim Ds) 2 tab TID PO 01/16/21 09:00 01/16/21 08:48 Justifications for Admission Other Justification BRIAN PLAZA III DO Jan 16, 2021 09:16
--- NOTE | 2021-01-16 09:49 | PDOC ---
PULMONARY PROGRESS NOTES DATE: 01/16/21 TIME: 09:49 Subjective No new symptoms Vitals Vital Signs Date Time Temp Pulse Resp B/P (MAP) Pulse Ox O2 Delivery O2 Flow Rate FiO2 01/16/21 08:00 Room Air 01/16/21 07:00 99.0 109 18 120/70 (87) 97 99.0 ROS: No Nausea, No Chest Pain, No Abdominal Pain, No Increase Cough General: Alert Lungs: Crackles Cardiovascular: S1 Abdomen: Soft Neuro Exam: Alert Skin: Warm Labs Laboratory Tests Test 01/16/21 07:05 White Blood Count 5.8 x10^3/uL (4.0-11.0) Red Blood Count 2.60 x10^6/uL (3.50-5.40) Hemoglobin 7.6 g/dL (12.0-15.5) Hematocrit 22.7 % (36.0-47.0) Mean Corpuscular Volume 87 fL (79-100) Mean Corpuscular Hemoglobin 29 pg (25-35) Mean Corpuscular Hemoglobin Concent 33 g/dL (31-37) Red Cell Distribution Width 13.8 % (11.5-14.5) Platelet Count 446 x10^3/uL (140-400) Neutrophils (%) (Auto) 69 % (31-73) Lymphocytes (%) (Auto) 22 % (24-48) Monocytes (%) (Auto) 8 % (0-9) Eosinophils (%) (Auto) 0 % (0-3) Basophils (%) (Auto) 0 % (0-3) Neutrophils # (Auto) 4.0 x10^3/uL (1.8-7.7) Lymphocytes # (Auto) 1.3 x10^3/uL (1.0-4.8) Monocytes # (Auto) 0.5 x10^3/uL (0.0-1.1) Eosinophils # (Auto) 0.0 x10^3/uL (0.0-0.7) Basophils # (Auto) 0.0 x10^3/uL (0.0-0.2) Sodium Level 134 mmol/L (136-145) Potassium Level 3.7 mmol/L (3.5-5.1) Chloride Level 101 mmol/L (98-107) Carbon Dioxide Level 25 mmol/L (21-32) Anion Gap 8 (6-14) Blood Urea Nitrogen 8 mg/dL (7-20) Creatinine 0.5 mg/dL (0.6-1.0) Estimated GFR (Cockcroft-Gault) 152.8 Glucose Level 93 mg/dL (70-99) Calcium Level 8.3 mg/dL (8.5-10.1) Laboratory Tests Test 01/16/21 07:05 White Blood Count 5.8 x10^3/uL (4.0-11.0) Red Blood Count 2.60 x10^6/uL (3.50-5.40) Hemoglobin 7.6 g/dL (12.0-15.5) Hematocrit 22.7 % (36.0-47.0) Mean Corpuscular Volume 87 fL (79-100) Mean Corpuscular Hemoglobin 29 pg (25-35) Mean Corpuscular Hemoglobin Concent 33 g/dL (31-37) Red Cell Distribution Width 13.8 % (11.5-14.5) Platelet Count 446 x10^3/uL (140-400) Neutrophils (%) (Auto) 69 % (31-73) Lymphocytes (%) (Auto) 22 % (24-48) Monocytes (%) (Auto) 8 % (0-9) Eosinophils (%) (Auto) 0 % (0-3) Basophils (%) (Auto) 0 % (0-3) Neutrophils # (Auto) 4.0 x10^3/uL (1.8-7.7) Lymphocytes # (Auto) 1.3 x10^3/uL (1.0-4.8) Monocytes # (Auto) 0.5 x10^3/uL (0.0-1.1) Eosinophils # (Auto) 0.0 x10^3/uL (0.0-0.7) Basophils # (Auto) 0.0 x10^3/uL (0.0-0.2) Sodium Level 134 mmol/L (136-145) Potassium Level 3.7 mmol/L (3.5-5.1) Chloride Level 101 mmol/L (98-107) Carbon Dioxide Level 25 mmol/L (21-32) Anion Gap 8 (6-14) Blood Urea Nitrogen 8 mg/dL (7-20) Creatinine 0.5 mg/dL (0.6-1.0) Estimated GFR (Cockcroft-Gault) 152.8 Glucose Level 93 mg/dL (70-99) Calcium Level 8.3 mg/dL (8.5-10.1) Medications Active Scripts Medications Dose Route/Sig Max Daily Dose Days Date Category No Known Medications Prior To Admisstion (Info) Each 1 Each MC PRN PRN 01/10/21 Reported Impression . IMPRESSION: 1. Left upper lobe suspect postobstructive pneumonia S/P bronchoscopy 2. Tobacco dependent. 3. Positive for cocaine and cannabinoids. 4. Leukocytosis--improved 5. Bacteremia 4/4 bottles. 6. Abnormal LFTs. Plan . Updated 01/15 Patient to discharge when okay with ID Discussed with social service regarding her HIV status Repeat CT chest in 2 months BAL negative Updated 01/12/21 Continue supplemental oxygen to keep sats above 92%, now on [place] NEBS S/P bronchoscopy 01/11/21--negative for endobronchial lesion, BAL negative Follow ID recs for ABX, Follow cultures Follow ortho recs-- concern for septic arthritis Follow Cardiology recs DVT/GI PPX D/W RN Updated 01/11/21 Continue supplemental oxygen to keep sats above 92%, now on [place] NEBS S/P bronchoscopy 01/11/21--see report Follow ID recs for ABX, Follow cultures Follow ortho recs-- concern for septic arthritis Follow Cardiology recs DVT/GI PPX D/W RN GUANACO PHAM MD Jan 16, 2021 09:49
[2021-01-16] MEDS ORDERED: LIDOCAINE WITH 8.4% SOD BICARB 3 ML DISP.SYRIN. INJ ONE (10:15)
[2021-01-16] MEDS ORDERED: LIDOCAINE WITH 8.4% SOD BICARB 3 ML DISP.SYRIN. ONE (10:18)
[2021-01-16 15:00] VITALS: BP 112/85
[2021-01-16] MEDS: cefTRIAXone IV Push 2 GM VIAL. IVP SCH (15:21)
--- NOTE | 2021-01-16 16:34 | RAD ---
Fluoroscopic and ultrasound guided arthrocentesis, right wrist at the distal radial ulnar joint 2020 Consent: The procedure was explained in its entirety to the patient or the patients designated repre sentative by a member of the treatment team, including a discussion of the risks, benefits and common ly accepted alternatives to the procedure, as well as the expected consequences of no therapy whatsoe julio césar. Discussion of the risks included, but was not limited to, those that are most frequent and tho se that are rare but possibly severe or life-threatening, as well as the possibility of unforeseen co mplications. The dorsal wrist was prepped and draped using sterile barrier technique. 1% lidocaine was administere d for local anesthesia. Using fluoroscopic guidance a 20-gauge needle was advanced to the distal radi al ulnar joint without significant return of fluid. Ultrasound was then used to identify a small amou nt of fluid dorsal and slightly lateral to the distal radioulnar joint joint, possibly within a bursa . Approximately 1 cc of fluid was aspirated from this collection and sent for culture. Manual pressur e was held. No immediate complications were identified. Fluoroscopy time: 0.2 minutes. Dose area product 2.64 uGym2 IMPRESSION: Small amount of fluid adjacent to the distal radial ulnar joint with aspiration yielding only approximately 1 cc of fluid. This was sent for culture. Electronically signed by: Naveen Lemus MD (01/16/2021 4:31 PM) [id number]
[2021-01-16 19:05] VITALS: BP 100/48
[2021-01-16 23:15] VITALS: BP 104/58
[2021-01-17 03:09] VITALS: BP 98/64
[2021-01-17] MEDS: HEPARIN for SUB-Q USE 5,000 UNIT/ML VIAL. SQ SCH ×3 (06:09→21:43)
--- NOTE | 2021-01-17 07:35 | PDOC ---
PROGRESS NOTES Date of Service DATE: 01/17/21 TIME: 07:33 Subjective Subjective No acute events overnight. Wrist range of motion improved this morning. Pain improved. Objective Vital Signs Vital Signs Date Time Temp Pulse Resp B/P (MAP) Pulse Ox O2 Delivery O2 Flow Rate FiO2 01/17/21 03:09 99.3 110 20 98/64 (75) 95 Room Air 99.3 01/11/21 11:41 3 Physical Exam Vital signs stable. No acute distress. Right upper extremity: Range of motion with forward flexion at the wrist to 45 degrees. Extension to 20 degrees. Range of motion at the digits intact. Capillary refill less than 2 seconds to the tips of the digits. 2+ radial pulse. Sensation intact light touch about the hand. Labs Laboratory Tests Test 01/16/21 07:05 White Blood Count 5.8 x10^3/uL (4.0-11.0) Red Blood Count 2.60 x10^6/uL (3.50-5.40) Hemoglobin 7.6 g/dL (12.0-15.5) Hematocrit 22.7 % (36.0-47.0) Mean Corpuscular Volume 87 fL (79-100) Mean Corpuscular Hemoglobin 29 pg (25-35) Mean Corpuscular Hemoglobin Concent 33 g/dL (31-37) Red Cell Distribution Width 13.8 % (11.5-14.5) Platelet Count 446 x10^3/uL (140-400) Neutrophils (%) (Auto) 69 % (31-73) Lymphocytes (%) (Auto) 22 % (24-48) Monocytes (%) (Auto) 8 % (0-9) Eosinophils (%) (Auto) 0 % (0-3) Basophils (%) (Auto) 0 % (0-3) Neutrophils # (Auto) 4.0 x10^3/uL (1.8-7.7) Lymphocytes # (Auto) 1.3 x10^3/uL (1.0-4.8) Monocytes # (Auto) 0.5 x10^3/uL (0.0-1.1) Eosinophils # (Auto) 0.0 x10^3/uL (0.0-0.7) Basophils # (Auto) 0.0 x10^3/uL (0.0-0.2) Sodium Level 134 mmol/L (136-145) Potassium Level 3.7 mmol/L (3.5-5.1) Chloride Level 101 mmol/L (98-107) Carbon Dioxide Level 25 mmol/L (21-32) Anion Gap 8 (6-14) Blood Urea Nitrogen 8 mg/dL (7-20) Creatinine 0.5 mg/dL (0.6-1.0) Estimated GFR (Cockcroft-Gault) 152.8 Glucose Level 93 mg/dL (70-99) Calcium Level 8.3 mg/dL (8.5-10.1) Assessment Assessment 60-year-old female with right wrist cellulitis Plan Plan of Care Aspirate from distal ulna fluid collection negative today. Symptoms significantly improved today. Stable for discharge from orthopedic standpoint with close follow-up. Plan to see in 5 to 7 days. Continue antibiotics per infectious disease recommendations. We will continue to monitor cultures remotely. Will sign off, please notify if intervention needed sooner. Justicifation of Admission Dx: Justifications for Admission: Justification of Admission Dx: Yes DONY BYERS MD Jan 17, 2021 07:35
[2021-01-17 07:47] LABS: BASO % 0 % (0-3); EOS % 0 % (0-3); HEMATOCRIT 21.6 % (36.0-47.0); HEMOGLOBIN 7.4 g/dL (12.0-15.5); LYMPH # 1.6 x10^3/uL (1.0-4.8); LYMPH % 23 % (24-48); MEAN CORPUSCULAR HEMOGLOBIN 30 pg (25-35); MEAN CORPUSCULAR HGB CONC 35 g/dL (31-37); MEAN CORPUSCULAR VOLUME 86 fL (79-100); MONO # 0.6 x10^3/uL (0.0-1.1); MONO % 8 % (0-9); NEUT # 4.7 x10^3/uL (1.8-7.7); NEUT % 68 % (31-73); PLATELET COUNT 428 x10^3/uL (140-400); RED BLOOD COUNT 2.51 x10^6/uL (3.50-5.40); WHITE BLOOD COUNT 6.9 x10^3/uL (4.0-11.0)
[2021-01-17 07:53] LABS: CALCIUM 8.7 mg/dL (8.5-10.1); CREATININE 0.8 mg/dL (0.6-1.0); GFR 88.8; POTASSIUM 4.2 mmol/L (3.5-5.1)
[2021-01-17 07:55] VITALS: BP 101/64
--- NOTE | 2021-01-17 08:16 | PDOC ---
Infectious Disease Note Subjective Subjective Patient feels better no sob, no n/v/d Discussed with nursing staff Vital Sign Vital Signs Vital Signs Date Time Temp Pulse Resp B/P (MAP) Pulse Ox O2 Delivery O2 Flow Rate FiO2 01/17/21 03:09 99.3 110 20 98/64 (75) 95 Room Air 99.3 Physical Exam PHYSICAL EXAM GENERAL: Thin, cachectic, female sitting in chair in no acute distress. HEENT: Normocephalic, atraumatic. Temporal wasting. No thrush. NECK: Supple, no JVD. LUNGS: Decreased breath sounds, mainly over the left lower lung. No wheezing. HEART: S1, S2. Could not appreciate any murmurs. ABDOMEN: Soft, scaphoid. Bowel sounds present, nontender. EXTREMITIES: No edema, no cyanosis. Wasting. DERMATOLOGIC: Warm, dry, no generalized rash. MUSCULOSKELETAL: Right hand, decreased range of motion, appears to have mild effusion at the wrist, unable to flex or extend due to pain. Slight warmth. NEUROLOGIC: Alert, oriented x 3, grossly nonfocal. Appears weak. Has generalized weakness. PSYCHIATRIC: Calm and cooperative. Labs Lab Laboratory Tests Test 01/17/21 07:00 White Blood Count 6.9 x10^3/uL (4.0-11.0) Red Blood Count 2.51 x10^6/uL (3.50-5.40) Hemoglobin 7.4 g/dL (12.0-15.5) Hematocrit 21.6 % (36.0-47.0) Mean Corpuscular Volume 86 fL (79-100) Mean Corpuscular Hemoglobin 30 pg (25-35) Mean Corpuscular Hemoglobin Concent 35 g/dL (31-37) Red Cell Distribution Width 14.0 % (11.5-14.5) Platelet Count 428 x10^3/uL (140-400) Neutrophils (%) (Auto) 68 % (31-73) Lymphocytes (%) (Auto) 23 % (24-48) Monocytes (%) (Auto) 8 % (0-9) Eosinophils (%) (Auto) 0 % (0-3) Basophils (%) (Auto) 0 % (0-3) Neutrophils # (Auto) 4.7 x10^3/uL (1.8-7.7) Lymphocytes # (Auto) 1.6 x10^3/uL (1.0-4.8) Monocytes # (Auto) 0.6 x10^3/uL (0.0-1.1) Eosinophils # (Auto) 0.0 x10^3/uL (0.0-0.7) Basophils # (Auto) 0.0 x10^3/uL (0.0-0.2) Sodium Level 129 mmol/L (136-145) Potassium Level 4.2 mmol/L (3.5-5.1) Chloride Level 100 mmol/L (98-107) Carbon Dioxide Level 22 mmol/L (21-32) Anion Gap 7 (6-14) Blood Urea Nitrogen 8 mg/dL (7-20) Creatinine 0.8 mg/dL (0.6-1.0) Estimated GFR (Cockcroft-Gault) 88.8 Glucose Level 85 mg/dL (70-99) Calcium Level 8.7 mg/dL (8.5-10.1) Micro Microbiology 01/11/21 - Final, Complete 01/11/21 Blood Culture - Preliminary, Resulted NO GROWTH AFTER 3 DAYS 01/09/21 Urine Culture - Final, Complete Objective Assessment 1. Sepsis. 2. Strep pneumoniae bacteremia, 4/4 bottles present on admission. 3. Weight loss. 4. Extensive left lung mass. Status post bronchoscopy 5. Hyponatremia. 6. Leukocytosis and lactic acidosis. 7. Abnormal LFTs. 8. Cocaine and marijuana dependence. 9. Right wrist pain, concern for septic arthritis Plan Plan of Care Continue ceftriaxone MRI noted wrist aspiration done Monitor labs and cultures HIV + HIV RNA PCR ordered, CD 4 ordered, Genotype is not allowed here at [facility] in detail discussion done with [facility] and then meds, though confirmation is still pending Discussed with nursing staff histo, crypto , fungal and afb culture pending bactTONA Brown MD Jan 17, 2021 08:16
--- NOTE | 2021-01-17 08:34 | PDOC ---
PULMONARY PROGRESS NOTES DATE: 01/17/21 TIME: 08:34 Subjective Patient not more short of breath, off of oxygen. Vitals Vital Signs Date Time Temp Pulse Resp B/P (MAP) Pulse Ox O2 Delivery O2 Flow Rate FiO2 01/17/21 07:55 98.1 104 18 101/64 (76) 97 Room Air 98.1 ROS: No Nausea, No Chest Pain, No Abdominal Pain, No Increase Cough General: Alert Lungs: Crackles Cardiovascular: S1 Abdomen: Soft Neuro Exam: Alert Skin: Warm Labs Laboratory Tests Test 01/16/21 07:05 01/17/21 07:00 White Blood Count 5.8 x10^3/uL (4.0-11.0) 6.9 x10^3/uL (4.0-11.0) Red Blood Count 2.60 x10^6/uL (3.50-5.40) 2.51 x10^6/uL (3.50-5.40) Hemoglobin 7.6 g/dL (12.0-15.5) 7.4 g/dL (12.0-15.5) Hematocrit 22.7 % (36.0-47.0) 21.6 % (36.0-47.0) Mean Corpuscular Volume 87 fL (79-100) 86 fL (79-100) Mean Corpuscular Hemoglobin 29 pg (25-35) 30 pg (25-35) Mean Corpuscular Hemoglobin Concent 33 g/dL (31-37) 35 g/dL (31-37) Red Cell Distribution Width 13.8 % (11.5-14.5) 14.0 % (11.5-14.5) Platelet Count 446 x10^3/uL (140-400) 428 x10^3/uL (140-400) Neutrophils (%) (Auto) 69 % (31-73) 68 % (31-73) Lymphocytes (%) (Auto) 22 % (24-48) 23 % (24-48) Monocytes (%) (Auto) 8 % (0-9) 8 % (0-9) Eosinophils (%) (Auto) 0 % (0-3) 0 % (0-3) Basophils (%) (Auto) 0 % (0-3) 0 % (0-3) Neutrophils # (Auto) 4.0 x10^3/uL (1.8-7.7) 4.7 x10^3/uL (1.8-7.7) Lymphocytes # (Auto) 1.3 x10^3/uL (1.0-4.8) 1.6 x10^3/uL (1.0-4.8) Monocytes # (Auto) 0.5 x10^3/uL (0.0-1.1) 0.6 x10^3/uL (0.0-1.1) Eosinophils # (Auto) 0.0 x10^3/uL (0.0-0.7) 0.0 x10^3/uL (0.0-0.7) Basophils # (Auto) 0.0 x10^3/uL (0.0-0.2) 0.0 x10^3/uL (0.0-0.2) Sodium Level 134 mmol/L (136-145) 129 mmol/L (136-145) Potassium Level 3.7 mmol/L (3.5-5.1) 4.2 mmol/L (3.5-5.1) Chloride Level 101 mmol/L (98-107) 100 mmol/L (98-107) Carbon Dioxide Level 25 mmol/L (21-32) 22 mmol/L (21-32) Anion Gap 8 (6-14) 7 (6-14) Blood Urea Nitrogen 8 mg/dL (7-20) 8 mg/dL (7-20) Creatinine 0.5 mg/dL (0.6-1.0) 0.8 mg/dL (0.6-1.0) Estimated GFR (Cockcroft-Gault) 152.8 88.8 Glucose Level 93 mg/dL (70-99) 85 mg/dL (70-99) Calcium Level 8.3 mg/dL (8.5-10.1) 8.7 mg/dL (8.5-10.1) Laboratory Tests Test 01/17/21 07:00 White Blood Count 6.9 x10^3/uL (4.0-11.0) Red Blood Count 2.51 x10^6/uL (3.50-5.40) Hemoglobin 7.4 g/dL (12.0-15.5) Hematocrit 21.6 % (36.0-47.0) Mean Corpuscular Volume 86 fL (79-100) Mean Corpuscular Hemoglobin 30 pg (25-35) Mean Corpuscular Hemoglobin Concent 35 g/dL (31-37) Red Cell Distribution Width 14.0 % (11.5-14.5) Platelet Count 428 x10^3/uL (140-400) Neutrophils (%) (Auto) 68 % (31-73) Lymphocytes (%) (Auto) 23 % (24-48) Monocytes (%) (Auto) 8 % (0-9) Eosinophils (%) (Auto) 0 % (0-3) Basophils (%) (Auto) 0 % (0-3) Neutrophils # (Auto) 4.7 x10^3/uL (1.8-7.7) Lymphocytes # (Auto) 1.6 x10^3/uL (1.0-4.8) Monocytes # (Auto) 0.6 x10^3/uL (0.0-1.1) Eosinophils # (Auto) 0.0 x10^3/uL (0.0-0.7) Basophils # (Auto) 0.0 x10^3/uL (0.0-0.2) Sodium Level 129 mmol/L (136-145) Potassium Level 4.2 mmol/L (3.5-5.1) Chloride Level 100 mmol/L (98-107) Carbon Dioxide Level 22 mmol/L (21-32) Anion Gap 7 (6-14) Blood Urea Nitrogen 8 mg/dL (7-20) Creatinine 0.8 mg/dL (0.6-1.0) Estimated GFR (Cockcroft-Gault) 88.8 Glucose Level 85 mg/dL (70-99) Calcium Level 8.7 mg/dL (8.5-10.1) Medications Active Scripts Medications Dose Route/Sig Max Daily Dose Days Date Category No Known Medications Prior To Admisstion (Info) Each 1 Each PRN PRN 01/10/21 Reported Impression . IMPRESSION: 1. Left upper lobe suspect postobstructive pneumonia S/P bronchoscopy 2. Tobacco dependent. 3. Positive for cocaine and cannabinoids. 4. Leukocytosis--improved 5. Bacteremia 4/4 bottles. 6. Abnormal LFTs. Plan . Respiratory status compensated Antibiotics and further management per ID I will sign off call if needed Updated 01/15 Patient to discharge when okay with ID Discussed with social service regarding her HIV status Repeat CT chest in 2 months BAL negative Updated 01/12/21 Continue supplemental oxygen to keep sats above 92%, now on [place] NEBS S/P bronchoscopy 01/11/21--negative for endobronchial lesion, BAL negative Follow ID recs for ABX, Follow cultures Follow ortho recs-- concern for septic arthritis Follow Cardiology recs DVT/GI PPX D/W GUANACO DANIELLE MD Jan 17, 2021 08:34
[2021-01-17] MEDS: ACETAMINOPHEN 325 MG TABLET. PO PRN (08:57)
[2021-01-17] MEDS: SMZ/TMP 800/160MG TABLET. PO SCH ×3 (08:57→21:40)
--- NOTE | 2021-01-17 10:16 | PDOC ---
[employer] PROGRESS NOTE Date of Service DOS: DATE: 01/17/21 TIME: 10:12 Chief Complaint Chief Complaint CC: Right Hand Pain Confusion Altered mental Status Acute encephalopathy Sepsis Cocaine Use CAP (community acquired pneumonia) HIV Right hand pain Nonspecific ST-T wave electrocardiographic changes Hyponatremia Weight loss Lactic acidosis Abnormal LFTs Anemia Severe protein calorie malnutrition Positive HIV test History of Present Illness History of Present Illness 01/17 Pt seen and examined. MITRA RN and MITRA case management. Pt R wrist feels better. Pt had a fever last night, but no fever today. 01/16 Pt seen and examined. MITRA RN. Pt is in pleasant mood today. Pt R wrist pain is feeling better today. 01/15 Pt seen and examined. MITRA RN and MITRA case management. Pt is tearful and down over hearing news that HIV test was positive. Pt still has pain in R. wrist. No erythema or visible swelling, but still decreased ROM in R wrist. 01/14 Pt seen and examined. MITRA RN and MITRA case management. Pt has Ortho, Infectious Disease and Cardiology on the case. Pt is starting to feel much better, but still has pain in R. arm and awaiting MRI. Pt is coughing, but denies SOA. Pt says that has stayed off cocaine for 19 years, but had a slip up and had some a few days ago. HPI: Ms Mccrary is a 60 yo F who takes no routine prescribed medications, presents the ED brought in by EMS with complaints of right hand pain after falling during the day on 01/09/2021. She was very confused and unclear about history but does note moving here from [place] at the end of 2019 and used cocaine "a few days ago". She notes weight loss, fever and chills and right hand pain and stiffness and is aware she is confused. Cannot give much more history, but notes she thinks she had a heart attack back in [place], but then says she didn't. She is a little short of breath and has a slight cough, notes she may have vomiting recently but thinks it may have been due to pain. WBC 24.3, Hb 11.1, platelets 503 INR 1.2 NA 125, K4.4, BUN 45, CR 1.1, glucose 104 bilirubin 2.1, AST 29, ALT 50, alk phos 1.3, albumin 1.3, NT proBNP 359 troponin 0 lactic acid 3 initially down to 1.5 UDS positive for cocaine and cannabinoids 0809 EKG sinus tachycardia 143 bpm, left axis deviation, normal intervals, J- point elevations in inferior lateral leads with hyperacute/peaked T waves, Q- wave lead III and aVF Chest radiograph with left upper lobe opacity Right hand radiograph without fracture CT head with no acute abnormality CT of the chest with contrast confirms multifocal left upper lobe pneumonia with hilar fullness and mediastinal lymphadenopathy. BP 90/50 after empiric antibiotics and fluids for sepsis, given rocephin and azithromycin. Admitted to ICU for further care. 01/11: Afebrile overnight. Transferred to [facility]. N.p.o. for possible bronchoscopy today.WBC 16.2, Hb 8.1, platelets 443, NA 135 albumin 0.9 CRP 199 and sed rate 125. To bronchoscopy with purulent secretions in left upper lobe no discrete mass found. BAL culture obtained. 01/12: T-max 100.1 F overnight. BP improved. K low Feeling little better appetite improved. Still with Right wrist pain swelling and stiffness Afebrile overnight. WBC down to 10.4, Hb 8.5 AST down to 41, albumin 1.1. Uric acid 1.5. Mg 1.4, K 3.5. Still with right wrist pain. Overall she feels a little better but still has a cough. Vitals/I&O Vitals/I&O: Vital Signs Date Time Temp Pulse Resp B/P (MAP) Pulse Ox O2 Delivery O2 Flow Rate FiO2 01/17/21 07:55 98.1 104 18 101/64 (76) 97 Room Air 98.1 I & O 01/16/21 01/16/21 01/17/21 15:00 23:00 07:00 Intake Total 360 ml 230 ml 340 ml Balance 360 ml 230 ml 340 ml Physical Exam Physical Exam: GENERAL: Thin, cachectic, female sitting in chair in no acute distress. HEENT: Normocephalic, atraumatic. Temporal wasting. No thrush. NECK: Supple, no JVD. LUNGS: Decreased breath sounds, mainly over the left lower lung. No wheezing. HEART: S1, S2. Could not appreciate any murmurs. ABDOMEN: Soft, scaphoid. Bowel sounds present, nontender. EXTREMITIES: No edema, no cyanosis. Wasting. DERMATOLOGIC: Warm, dry, no generalized rash. MUSCULOSKELETAL: Right hand, decreased range of motion, appears to have mild effusion at the wrist, unable to flex or extend due to pain. Slight warmth. NEUROLOGIC: Alert, oriented x 3, grossly nonfocal. Appears weak. Has generalized weakness. PSYCHIATRIC: Calm and cooperative. General: Alert, Oriented X3, Cooperative, No acute distress Heart: Regular rate (SR/ST non specific changes), Normal S1, Normal S2, No murmurs Lungs: Crackles Abdomen: Normal bowel sounds, Soft, No tenderness, No hepatosplenomegaly, No masses Extremities: No clubbing, No cyanosis, No edema, Normal pulses, No tenderness/swelling Skin: No rashes, No breakdown, No significant lesion Labs Labs: Laboratory Tests Test 01/17/21 07:00 White Blood Count 6.9 x10^3/uL (4.0-11.0) Red Blood Count 2.51 x10^6/uL (3.50-5.40) Hemoglobin 7.4 g/dL (12.0-15.5) Hematocrit 21.6 % (36.0-47.0) Mean Corpuscular Volume 86 fL (79-100) Mean Corpuscular Hemoglobin 30 pg (25-35) Mean Corpuscular Hemoglobin Concent 35 g/dL (31-37) Red Cell Distribution Width 14.0 % (11.5-14.5) Platelet Count 428 x10^3/uL (140-400) Neutrophils (%) (Auto) 68 % (31-73) Lymphocytes (%) (Auto) 23 % (24-48) Monocytes (%) (Auto) 8 % (0-9) Eosinophils (%) (Auto) 0 % (0-3) Basophils (%) (Auto) 0 % (0-3) Neutrophils # (Auto) 4.7 x10^3/uL (1.8-7.7) Lymphocytes # (Auto) 1.6 x10^3/uL (1.0-4.8) Monocytes # (Auto) 0.6 x10^3/uL (0.0-1.1) Eosinophils # (Auto) 0.0 x10^3/uL (0.0-0.7) Basophils # (Auto) 0.0 x10^3/uL (0.0-0.2) Sodium Level 129 mmol/L (136-145) Potassium Level 4.2 mmol/L (3.5-5.1) Chloride Level 100 mmol/L (98-107) Carbon Dioxide Level 22 mmol/L (21-32) Anion Gap 7 (6-14) Blood Urea Nitrogen 8 mg/dL (7-20) Creatinine 0.8 mg/dL (0.6-1.0) Estimated GFR (Cockcroft-Gault) 88.8 Glucose Level 85 mg/dL (70-99) Calcium Level 8.7 mg/dL (8.5-10.1) Review of Systems Review of Systems: Denies abdominal pain. Denies calf pain b/l. Assessment and Plan Assessmemt and Plan Problems Medical Problems: (1) CAP (community acquired pneumonia) Status: Acute (2) Cocaine use Status: Acute (3) Hyponatremia Status: Acute (4) Nonspecific ST-T wave electrocardiographic changes Status: Acute (5) Person under investigation for COVID-19 Status: Acute (6) Sepsis Status: Acute Assessment: Plan: Hope to D/C tomorrow if fever resolves and ID agrees Continue Antibiotics per infectious disease PT/OT Appreciate specialist input Continue Duo Nebulizer PRN O2 DVT prophylaxis Continue Home Meds Full Code Comment Review of Relevant I have reviewed the following items terry (where applicable) has been applied. Justifications for Admission Other Justification BRIAN PLAZA III DO Jan 17, 2021 10:15
[2021-01-17 11:55] VITALS: BP 92/52
[2021-01-17] MEDS: cefTRIAXone IV Push 2 GM VIAL. IVP SCH (12:36)
[2021-01-17 15:59] VITALS: BP 89/48
[2021-01-17 19:23] VITALS: BP 101/51
[2021-01-17 22:34] VITALS: BP 94/51
[2021-01-18 03:29] VITALS: BP 86/49
[2021-01-18] MEDS: HEPARIN for SUB-Q USE 5,000 UNIT/ML VIAL. SQ SCH ×2 (05:45→14:00)
[2021-01-18 06:26] VITALS: BP 92/59
[2021-01-18 06:49] LABS: BASO % 1 % (0-3); EOS % 0 % (0-3); HEMATOCRIT 22.4 % (36.0-47.0); HEMOGLOBIN 7.7 g/dL (12.0-15.5); LYMPH # 1.4 x10^3/uL (1.0-4.8); LYMPH % 25 % (24-48); MEAN CORPUSCULAR HEMOGLOBIN 30 pg (25-35); MEAN CORPUSCULAR HGB CONC 35 g/dL (31-37); MEAN CORPUSCULAR VOLUME 86 fL (79-100); MONO # 0.5 x10^3/uL (0.0-1.1); MONO % 9 % (0-9); NEUT # 3.9 x10^3/uL (1.8-7.7); NEUT % 66 % (31-73); PLATELET COUNT 472 x10^3/uL (140-400); RED BLOOD COUNT 2.62 x10^6/uL (3.50-5.40); RED CELL DISTRIBUTION WIDTH 13.9 % (11.5-14.5); WHITE BLOOD COUNT 5.8 x10^3/uL (4.0-11.0)
[2021-01-18 07:07] LABS: CREATININE 0.9 mg/dL (0.6-1.0); GFR 77.5; POTASSIUM 4.4 mmol/L (3.5-5.1)
--- NOTE | 2021-01-18 08:26 | PDOC ---
Infectious Disease Note Subjective Subjective Patient feels better no sob, no n/v/d Discussed with nursing staff Vital Sign Vital Signs Vital Signs Date Time Temp Pulse Resp B/P (MAP) Pulse Ox O2 Delivery O2 Flow Rate FiO2 01/18/21 06:26 98.5 103 18 92/59 (70) 98 Room Air 98.5 Physical Exam PHYSICAL EXAM GENERAL: Thin, cachectic, female sitting in chair in no acute distress. HEENT: Normocephalic, atraumatic. Temporal wasting. No thrush. NECK: Supple, no JVD. LUNGS: Decreased breath sounds, mainly over the left lower lung. No wheezing. HEART: S1, S2. Could not appreciate any murmurs. ABDOMEN: Soft, scaphoid. Bowel sounds present, nontender. EXTREMITIES: No edema, no cyanosis. Wasting. DERMATOLOGIC: Warm, dry, no generalized rash. MUSCULOSKELETAL: Right hand, decreased range of motion, appears to have mild effusion at the wrist, unable to flex or extend due to pain. Slight warmth. NEUROLOGIC: Alert, oriented x 3, grossly nonfocal. Appears weak. Has generalized weakness. PSYCHIATRIC: Calm and cooperative. Labs Lab Laboratory Tests Test 01/18/21 06:25 White Blood Count 5.8 x10^3/uL (4.0-11.0) Red Blood Count 2.62 x10^6/uL (3.50-5.40) Hemoglobin 7.7 g/dL (12.0-15.5) Hematocrit 22.4 % (36.0-47.0) Mean Corpuscular Volume 86 fL (79-100) Mean Corpuscular Hemoglobin 30 pg (25-35) Mean Corpuscular Hemoglobin Concent 35 g/dL (31-37) Red Cell Distribution Width 13.9 % (11.5-14.5) Platelet Count 472 x10^3/uL (140-400) Neutrophils (%) (Auto) 66 % (31-73) Lymphocytes (%) (Auto) 25 % (24-48) Monocytes (%) (Auto) 9 % (0-9) Eosinophils (%) (Auto) 0 % (0-3) Basophils (%) (Auto) 1 % (0-3) Neutrophils # (Auto) 3.9 x10^3/uL (1.8-7.7) Lymphocytes # (Auto) 1.4 x10^3/uL (1.0-4.8) Monocytes # (Auto) 0.5 x10^3/uL (0.0-1.1) Eosinophils # (Auto) 0.0 x10^3/uL (0.0-0.7) Basophils # (Auto) 0.0 x10^3/uL (0.0-0.2) Sodium Level 127 mmol/L (136-145) Potassium Level 4.4 mmol/L (3.5-5.1) Chloride Level 99 mmol/L (98-107) Carbon Dioxide Level 22 mmol/L (21-32) Anion Gap 6 (6-14) Blood Urea Nitrogen 9 mg/dL (7-20) Creatinine 0.9 mg/dL (0.6-1.0) Estimated GFR (Cockcroft-Gault) 77.5 Glucose Level 84 mg/dL (70-99) Calcium Level 9.0 mg/dL (8.5-10.1) Micro Microbiology 01/11/21 - Final, Complete 01/11/21 Blood Culture - Preliminary, Resulted NO GROWTH AFTER 3 DAYS 01/09/21 Urine Culture - Final, Complete Objective Assessment 1. Sepsis. 2. Strep pneumoniae bacteremia, 4/4 bottles present on admission. 3. Weight loss. 4. Extensive left lung mass. Status post bronchoscopy 5. Hyponatremia. 6. Leukocytosis and lactic acidosis. 7. Abnormal LFTs. 8. Cocaine and marijuana dependence. 9. Right wrist pain, concern for septic arthritis Plan Plan of Care Continue ceftriaxone MRI noted wrist aspiration done Monitor labs and cultures HIV + HIV RNA PCR ordered, Genotype is not allowed here at [facility] in detail discussion done with [facility] and White and then meds, though confirmation is still pending Discussed with nursing staff CD 4 is 357 histo, crypto , fungal and afb culture pending TONA PERAZA MD Jan 18, 2021 08:26
--- NOTE | 2021-01-18 10:53 | PDOC ---
[employer] PROGRESS NOTE Date of Service DOS: DATE: 01/18/21 TIME: 10:47 Chief Complaint Chief Complaint CC: Right Hand Pain Confusion Altered mental Status Acute encephalopathy Sepsis Cocaine Use CAP (community acquired pneumonia) HIV Right hand pain Nonspecific ST-T wave electrocardiographic changes Hyponatremia Weight loss Lactic acidosis Abnormal LFTs Anemia Severe protein calorie malnutrition Positive HIV test History of Present Illness History of Present Illness 01/18 Pt seen and examined. MITRA RN and MITRA case management. Discussed PICC line with patient. Pt confirms that she will not put anything in PICC line and will not be doing cocaine anymore. Pt is in pleasant mood today. Pt had no fevers last night and no fevers today. 01/17 Pt seen and examined. MITRA RN and MITRA case management. Pt R wrist feels better. Pt had a fever last night, but no fever today. 01/16 Pt seen and examined. MITRA RN. Pt is in pleasant mood today. Pt R wrist pain is feeling better today. 01/15 Pt seen and examined. MITRA RN and MITRA case management. Pt is tearful and down over hearing news that HIV test was positive. Pt still has pain in R. wrist. No erythema or visible swelling, but still decreased ROM in R wrist. 01/14 Pt seen and examined. MITRA RN and MITRA case management. Pt has Ortho, Infectious Disease and Cardiology on the case. Pt is starting to feel much better, but still has pain in R. arm and awaiting MR I. Pt is coughing, but denies SOA. Pt says that has stayed off cocaine for 19 years, but had a slip up and had some a few days ago. HPI: Ms Mccrary is a 60 yo F who takes no routine prescribed medications, presents the ED brought in by EMS with complaints of right hand pain after falling during the day on 01/09/2021. She was very confused and unclear about history but does note moving here from [place] at the end of 2019 and used cocaine "a few days ago". She notes weight loss, fever and chills and right hand pain and stiffness and is aware she is confused. Cannot give much more history, but notes she thinks she had a heart attack back in [place], but then says she didn't. She is a little short of breath and has a slight cough, notes she may have vomiting recently but thinks it may have been due to pain. WBC 24.3, Hb 11.1, platelets 503 INR 1.2 NA 125, K4.4, BUN 45, CR 1.1, glucose 104 bilirubin 2.1, AST 29, ALT 50, alk phos 1.3, albumin 1.3, NT proBNP 359 troponin 0 lactic acid 3 initially down to 1.5 UDS positive for cocaine and cannabinoids 0809 EKG sinus tachycardia 143 bpm, left axis deviation, normal intervals, J- point elevations in inferior lateral leads with hyperacute/peaked T waves, Q- wave lead III and aVF Chest radiograph with left upper lobe opacity Right hand radiograph without fracture CT head with no acute abnormality CT of the chest with contrast confirms multifocal left upper lobe pneumonia with hilar fullness and mediastinal lymphadenopathy. BP 90/50 after empiric antibiotics and fluids for sepsis, given rocephin and azithromycin. Admitted to ICU for further care. 01/11: Afebrile overnight. Transferred to [facility]. N.p.o. for possible bronchoscopy today.WBC 16.2, Hb 8.1, platelets 443, NA 135 albumin 0.9 CRP 199 and sed rate 125. To bronchoscopy with purulent secretions in left upper lobe no discrete mass found. BAL culture obtained. 01/12: T-max 100.1 F overnight. BP improved. K low Feeling little better appetite improved. Still with Right wrist pain swelling and stiffness Afebrile overnight. WBC down to 10.4, Hb 8.5 AST down to 41, albumin 1.1. Uric acid 1.5. Mg 1.4, K 3.5. Still with right wrist pain. Overall she feels a little better but still has a cough. Vitals/I&O Vitals/I&O: Vital Signs Date Time Temp Pulse Resp B/P (MAP) Pulse Ox O2 Delivery O2 Flow Rate FiO2 01/18/21 06:26 98.5 103 18 92/59 (70) 98 Room Air 98.5 I & O 01/17/21 01/17/21 01/18/21 15:00 23:00 07:00 Intake Total 200 ml 300 ml Balance 200 ml 300 ml Physical Exam Physical Exam: GENERAL: Thin, cachectic, female sitting in chair in no acute distress. HEENT: Normocephalic, atraumatic. Temporal wasting. No thrush. NECK: Supple, no JVD. LUNGS: Decreased breath sounds, mainly over the left lower lung. No wheezing. HEART: S1, S2. Could not appreciate any murmurs. ABDOMEN: Soft, scaphoid. Bowel sounds present, nontender. EXTREMITIES: No edema, no cyanosis. Wasting. DERMATOLOGIC: Warm, dry, no generalized rash. MUSCULOSKELETAL: Right hand, decreased range of motion, appears to have mild effusion at the wrist, unable to flex or extend due to pain. Slight warmth. NEUROLOGIC: Alert, oriented x 3, grossly nonfocal. Appears weak. Has generalized weakness. PSYCHIATRIC: Calm and cooperative. General: Alert, Oriented X3, Cooperative, No acute distress Heart: Regular rate (SR/ST non specific changes), Normal S1, Normal S2, No murmurs Lungs: Crackles Abdomen: Normal bowel sounds, Soft, No tenderness, No hepatosplenomegaly, No masses Extremities: No clubbing, No cyanosis, No edema, Normal pulses, No tenderness/swelling Skin: No rashes, No breakdown, No significant lesion Labs Labs: Laboratory Tests Test 01/18/21 06:25 White Blood Count 5.8 x10^3/uL (4.0-11.0) Red Blood Count 2.62 x10^6/uL (3.50-5.40) Hemoglobin 7.7 g/dL (12.0-15.5) Hematocrit 22.4 % (36.0-47.0) Mean Corpuscular Volume 86 fL (79-100) Mean Corpuscular Hemoglobin 30 pg (25-35) Mean Corpuscular Hemoglobin Concent 35 g/dL (31-37) Red Cell Distribution Width 13.9 % (11.5-14.5) Platelet Count 472 x10^3/uL (140-400) Neutrophils (%) (Auto) 66 % (31-73) Lymphocytes (%) (Auto) 25 % (24-48) Monocytes (%) (Auto) 9 % (0-9) Eosinophils (%) (Auto) 0 % (0-3) Basophils (%) (Auto) 1 % (0-3) Neutrophils # (Auto) 3.9 x10^3/uL (1.8-7.7) Lymphocytes # (Auto) 1.4 x10^3/uL (1.0-4.8) Monocytes # (Auto) 0.5 x10^3/uL (0.0-1.1) Eosinophils # (Auto) 0.0 x10^3/uL (0.0-0.7) Basophils # (Auto) 0.0 x10^3/uL (0.0-0.2) Sodium Level 127 mmol/L (136-145) Potassium Level 4.4 mmol/L (3.5-5.1) Chloride Level 99 mmol/L (98-107) Carbon Dioxide Level 22 mmol/L (21-32) Anion Gap 6 (6-14) Blood Urea Nitrogen 9 mg/dL (7-20) Creatinine 0.9 mg/dL (0.6-1.0) Estimated GFR (Cockcroft-Gault) 77.5 Glucose Level 84 mg/dL (70-99) Calcium Level 9.0 mg/dL (8.5-10.1) Review of Systems Review of Systems: Denies abdominal pain. Denies calf pain b/l. Assessment and Plan Assessmemt and Plan Problems Medical Problems: (1) CAP (community acquired pneumonia) Status: Acute (2) Cocaine use Status: Acute (3) Hyponatremia Status: Acute (4) Nonspecific ST-T wave electrocardiographic changes Status: Acute (5) Person under investigation for COVID-19 Status: Acute (6) Sepsis Status: Acute Assessment: CC: Right Hand Pain Confusion Altered mental Status Acute encephalopathy Sepsis Cocaine Use CAP (community acquired pneumonia) HIV Right hand pain Nonspecific ST-T wave electrocardiographic changes Hyponatremia Weight loss Lactic acidosis Abnormal LFTs Anemia Severe protein calorie malnutrition Positive HIV test Plan: Have PICC line placed today Plan to D/C once PICC line placed and ID has given script for IV antibiotics to take home DVT prophylaxis Duoneb Nebulization PRN PRN O2 Home Meds Cardiac Monitoring Full Code Comment Review of Relevant I have reviewed the following items terry (where applicable) has been applied. Justifications for Admission Other Justification BRIAN PLAZA III DO Jan 18, 2021 10:53
[2021-01-18 11:04] VITALS: BP 98/43
[2021-01-18] MEDS: cefTRIAXone IV Push 2 GM VIAL. IVP SCH (11:45)
[2021-01-18] MEDS ORDERED: LIDOCAINE WITH 8.4% SOD BICARB 3 ML DISP.SYRIN. ONE (12:26)
[2021-01-18] MEDS ORDERED: LIDOCAINE WITH 8.4% SOD BICARB 3 ML DISP.SYRIN. INJ ONE (12:30)
--- NOTE | 2021-01-18 13:54 | RAD ---
Date: 01/18/2021 Exam: Fluoroscopic and ultrasound guided peripheral central venous catheter placement. Indication: Consent: The procedure was explained in its entirety to the patient or the patients designated repres entative by a member of the treatment team, including a discussion of the risks, benefits and commonl y accepted alternatives to the procedure, as well as the expected consequences of no therapy whatsoev er. Discussion of the risks included, but was not limited to, those that are most frequent and thos e that are rare but possibly severe or life-threatening, as well as the possibility of unforeseen com plications. Discussion: A timeout procedure was performed. The patient was prepped and draped using maximum sterile techniq ue, including the use of: Current guideline approved cutaneous antisepsis, a large sterile sheet to e stablish a sterile field. Additionally the heading saw operator wore a hat, mask, sterile gloves, a sterile gown during the procedure as well as practiced acceptable hand hygiene prior to placing the line. 1% lidoc jordana was administered for local anesthesia. Ultrasound evaluation demonstrates a patent left basilic vein. Reference images were saved in the ri dical record. The selected vein was accessed using micropuncture technique. A guidewire was advanced centrally. The PICC line was cut to length, and advanced through a peel-away sheath such that it's t ip resides at the cavoatrial junction. The peel-away sheath a sheath was removed. The catheter was se cured in place. The catheter was found to flush and aspirate normally.. Sterile dressings were applie d. No immediate complications were identified. Fluoroscopy time: .1 minutes Dose area product: 1 Gycm2 Impression: Successful placement of a left upper extremity PICC line Electronically signed by: Naveen Lemus MD (01/18/2021 1:51 PM) [id number]
--- NOTE | 2021-01-18 13:54 | RAD ---
Date: 01/18/2021 Exam: Fluoroscopic and ultrasound guided peripheral central venous catheter placement. Indication: Consent: The procedure was explained in its entirety to the patient or the patients designated repres entative by a member of the treatment team, including a discussion of the risks, benefits and commonl y accepted alternatives to the procedure, as well as the expected consequences of no therapy whatsoev er. Discussion of the risks included, but was not limited to, those that are most frequent and thos e that are rare but possibly severe or life-threatening, as well as the possibility of unforeseen com plications. Discussion: A timeout procedure was performed. The patient was prepped and draped using maximum sterile techniq ue, including the use of: Current guideline approved cutaneous antisepsis, a large sterile sheet to e stablish a sterile field. Additionally the hemstitching machine operator wore a hat, mask, sterile gloves, a sterile gown during the procedure as well as practiced acceptable hand hygiene prior to placing the line. 1% lidoc jordana was administered for local anesthesia. Ultrasound evaluation demonstrates a patent left basilic vein. Reference images were saved in the ms dical record. The selected vein was accessed using micropuncture technique. A guidewire was advanced centrally. The PICC line was cut to length, and advanced through a peel-away sheath such that it's t ip resides at the cavoatrial junction. The peel-away sheath a sheath was removed. The catheter was se cured in place. The catheter was found to flush and aspirate normally.. Sterile dressings were applie d. No immediate complications were identified. Fluoroscopy time: .1 minutes Dose area product: 1 Gycm2 Impression: Successful placement of a left upper extremity PICC line Electronically signed by: Naveen Lemus MD (01/18/2021 1:51 PM) [id number]
[2021-01-18 14:39] VITALS: BP 100/51
--- NOTE | 2021-01-18 14:50 | DS ---
DATE OF DISCHARGE: 01/18/2021 ADMISSION DIAGNOSES: Sepsis, acute encephalopathy, community-acquired pneumonia, gram-positive bacteremia, right arm pain, cocaine abuse, hyponatremia, weight loss. DISCHARGE DIAGNOSES: Resolving sepsis, new diagnosis of HIV, resolving acute encephalopathy, resolving septic right wrist joint, cocaine abuse, resolving hyponatremia. CONSULTS: Infectious Disease, Orthopedics, Pulmonary Medicine and Cardiology. PROCEDURES: Fine needle aspiration of the right wrist. HOSPITAL COURSE: The patient is a pleasant, middle-aged female who presented with sepsis and pneumonia and the above consults were obtained. We discovered she was HIV positive. She also had a right wrist that was painful, so we consulted Orthopedics and fine needle aspirate was completed. Today, I saw and examined the patient, she is doing better. Infectious Disease would like her to continue with IV ceftriaxone as an outpatient. We are placing a PICC line that we are going to have her follow up with the infusion clinic for daily infusions of 2 grams of ceftriaxone for a few weeks. DISPOSITION: Home. ACTIVITY: As tolerated. DIET: Low sodium. DISCHARGE MEDICATIONS: Please see the [facility]. Rocephin 2 grams IV daily for a couple of weeks. TOTAL TIME: [address]: Hrebert TID: [id number]
[2021-01-18 17:14] LABS: HISTOPLASMA AG URINE <0.5 (<0.5 ng/mL)
== END 2021-01-18 17:15 | disposition home or self-care (01) | DRG 871 ==
LOC: ER 20:07 → 1 WEST ICU 22:33 → 2 NORTH 01-10 18:00
PROVIDERS: ADMIT Family Medicine; ATTEND Family Medicine
PROC: 0B9G8ZX Drainage of Left Upper Lung Lobe, Via Natural or Artificial Opening Endoscopic, Diagnostic (ICD-10-PCS; principal; 2021-01-11 11:00)
PROC: 0R9L3ZZ Drainage of Right Elbow Joint, Percutaneous Approach (ICD-10-PCS; 2021-01-16)
PROC: 02HV33Z Insertion of Infusion Device into Superior Vena Cava, Percutaneous Approach (ICD-10-PCS; 2021-01-18)
PROC: B5181ZA Fluoroscopy of Superior Vena Cava using Low Osmolar Contrast, Guidance (ICD-10-PCS; 2021-01-18)
PROC: B548ZZA Ultrasonography of Superior Vena Cava, Guidance (ICD-10-PCS; 2021-01-18)
DX: A40.3 Sepsis due to Streptococcus pneumoniae (principal); E43 Unspecified severe protein-calorie malnutrition; G93.41 Metabolic encephalopathy; J18.9 Pneumonia, unspecified organism; E87.1 Hypo-osmolality and hyponatremia; J90 Pleural effusion, not elsewhere classified; L03.113 Cellulitis of right upper limb; B96.89 Other specified bacterial agents as the cause of diseases classified elsewhere; D64.9 Anemia, unspecified; E11.9 Type 2 diabetes mellitus without complications; E86.1 Hypovolemia; F12.20 Cannabis dependence, uncomplicated; F14.10 Cocaine abuse, uncomplicated; F17.200 Nicotine dependence, unspecified, uncomplicated; J43.9 Emphysema, unspecified; M06.4 Inflammatory polyarthropathy; M19.90 Unspecified osteoarthritis, unspecified site; M65.9 Synovitis and tenosynovitis, unspecified; Z20.822 Contact with and (suspected) exposure to COVID-19; Z21 Asymptomatic human immunodeficiency virus [HIV] infection status; Z68.20 Body mass index [BMI] 20.0-20.9, adult
CPT/HCPCS: 20605; 31622; 36415; 36573; 70450; 71045; 71260; 72125; 73110; 73130; 73221; 73223; 76881; 77001; 77002; 80048; 80053; 80202; 80307; 81001; 82550; 83605; 83690; 83735; 83880; 84484; 84550; 85007; 85025; 85610; 85651; 85730; 86140; 86360; 86592; 86701; 86702; 86703; 86705; 86709; 86803; 87040; 87070; 87071; 87075; 87077; 87086; 87102; 87103; 87116; 87186; 87205; 87252; 87340; 87385; 87449; 87536; 87801; 87899; 88112; 88312; 93005; 93306; 94640; 94667; 94668; 96365; 96375; A9575; C1751; C1892; J0456; J0696; J0878; J1644; J2060; J2543; J2704; J3370; J3475; J3490; J7030; J7050; J7120; P9045; Q9967; U0003; U0005; 99285-25; G0378; J7613